=== PATIENT | male | born 1945 | race Caucasian/White ===

== ENCOUNTER 2017-06-02 14:32 | Outpatient (CLI) | payer MEDICARE, OTHER ==
[~2017-06-02] VITALS: Ht 182.9 cm; Wt 127.0 kg
[~2017-06-02 14:32] MED LIST: ACHD5005 PO; CIPR-17 PO; HYDR-91 PO; HYOS0.1216 PO; NITR100C44 PO; PHEN100T26 PO; TMSL.4C PO; methylPREDNISolone 80 MG/ML (DEPO MEDROL) VIAL ONE
[2017-06-02 14:46] VITALS: BP 155/74
[2017-06-02 15:17] VITALS: BP 155/70
--- NOTE | 2017-06-06 08:34 | OPERATIVE REPORT ---
DATE OF SERVICE: 06/02/2017 CAUDAL EPIDURAL STEROID INJECTION The patient was placed in the prone position on the examination table. The area over the sacrum from the lumbosacral junction down to and past the sacrococcygeal junction was prepped with anesthetic. Under fluoroscopy guidance, the area identified as the sacral sulcus was found and using a syringe with lidocaine, local was injected. Under fluoroscopy guidance, 25-gauge and 27-gauge 3-1/2 inch spinal needles were then directed down into the sacral sulcus. Dye was injected. We obtained a crosstable fluoroscopy image and saw the dye was an epidural flow in the sacral vault. Negative aspiration for spinal fluid or blood. At this time, we switched over and injected 80 mg of Depo-Medrol. Job ID: [id number] DocumentID: [id number] Dictated Date: 06/05/2017 20:39:09 Pbx Technician Date: 06/06/2017 01:27:34 Dictated By: DURGA KNIGHT DO
== END 2017-06-02 15:18 | disposition home or self-care (01) ==
LOC: CARD 14:32
PROVIDERS: ATTEND Pain Medicine Interventional Pain Medicine
DX: M54.16 Radiculopathy, lumbar region (principal)
CPT/HCPCS: 62323

== ENCOUNTER 2019-10-14 15:27 | Emergency (ER) | payer MEDICARE, OTHER ==
[~2019-10-14] VITALS: Ht 182.8 cm; Wt 136.7 kg
[~2019-10-14 15:27] MED LIST changes: -methylPREDNISolone 80 MG/ML (DEPO MEDROL) VIAL ONE
--- OUTSIDE RECORDS SUMMARY | 2019-10-14 15:33 | XMS REPORT | Continuity of Care Document ---
Author Organization Unknown Address Unknown Phone Unavailable Allergies Active Description Code Type Severity Reaction Onset Reported/Identified Relationship to Patient Clinical Status Yes No Known Drug Allergies [id number] Drug Allergy Unknown N/A 10/16/2013 Medications There is no data. Problems Date Dx Coded Attending Type Code Diagnosis Diagnosed By 10/16/2013 PINEDA NORMAN MD Ot 592.0 CALCULUS OF KIDNEY 11/20/2013 PINEDA NORMAN MD Ot 592.0 CALCULUS OF KIDNEY 11/20/2013 PINEDA NORMAN MD Ot 592.1 CALCULUS OF URETER 11/20/2013 PINEDA NORMAN MD Ot 596.0 BLADDER NECK OBSTRUCTION 06/02/2017 DURGA KNIGHT DO Ot M54.16 RADICULOPATHY, LUMBAR REGION 06/02/2017 PINEDA NORMAN MD Ot 592.9 URINARY CALCULUS NOS 06/02/2017 PINEDA NORMAN MD Ot 592.1 CALCULUS OF URETER 06/02/2017 PINEDA NORMAN MD Ot 592.0 CALCULUS OF KIDNEY Procedures There is no data. Results There is no data. Encounters ACCT No. Visit Date/Time Discharge Status Pt. Type Provider Facility Loc./Unit Complaint [id number] 07/13/2018 08:04:00 019 23:59:59 CLS Preadmit DURGA KNIGHT DO [facility] RAD M54.16 RADICULOPATHY [id number] 06/02/2017 14:32:00 017 15:18:00 DIS Outpatient DURGA KNIGHT DO [facility] CARD M54.16 LUMBAR RADICULOPATHY [id number] 12/04/2013 13:32:00 014 23:59:59 CLS Outpatient PINEDA NORMAN MD [facility] RAD URETER STONE [id number] 11/19/2013 16:55:00 13:30:00 DIS Outpatient PINEDA NORMAN MD [facility] BILAT URETERAL STONES [id number] 10/30/2013 15:26:00 23:59:59 CLS Outpatient PINEDA NORMAN MD [facility] RAD RT URETEAL STONE [id number] 10/16/2013 06:07:00 13:30:00 DIS Outpatient PINEDA NORMAN MD [facility] LEFT URETERAL STONE [id number] 10/15/2013 15:04:00 23:59:59 CLS Outpatient PINEDA NORMAN MD [facility] RAD STONE
--- NOTE | 2019-10-14 15:39 | ED General ---
General Stated Complaint: CHEST PAIN Source of Information: Patient, Old Records, RN Notes Reviewed Exam Limitations: No Limitations History of Present Illness Date Seen by Provider: Oct 14, 2019 Time Seen by Provider: 15:30 Initial Comments This patient is a 74-year-old male presents to the emerge department complaining of left upper chest pain that started in the morning when away and then started hurting on the right upper chest pain. Some mild dizziness patient denies any cardiac history is passed. Patient states he has had about a 5-10 pound weight gain in the past month due to the serrano virus being quarantine and just sitting around the house and eating. Patient denies pain at this time. Patient does have a history of diabetes and hypertension. Does take Lasix at home regularly for due to edema. Timing/Duration: 4-6 Hours Severity: Mild Associated Systoms: No Denies Symptoms; Chest Pain; No Cough, No Diaphoresis, No Fever/Chills, No Headaches, No Loss of Appetite, No Malaise, No Nausea/Vomiting, No Rash, No Seizure, No Shortness of Air, No Syncope, No Weakness, No Other Allergies and Home Medications Allergies Coded Allergies: No Known Drug Allergies (Unverified , 10/16/13) Patient Home Medication List Home Medication List Reviewed: Yes Review of Systems Review of Systems Constitutional: see HPI EENTM: No see HPI, No no symptoms reported, No ear discharge, No hearing loss, No ear pain, No blurred vision, No double vision, No eye pain, No tearing, No vision loss, No dental problems, No hoarseness, No mouth pain, No mouth swelling, No epistaxis, No nose congestion, No nose pain, No throat pain, No throat swelling, No other Respiratory: No no symptoms reported, No see HPI, No cough, No dyspnea on exertion, No hemoptysis, No orthopnea, No phlegm, No short of breath, No stridor, No wheezing, No other Cardiovascular: No no symptoms reported; see HPI, chest pain; No edema, No Hx of Intervention, No palpitations, No syncope, No vascular heart diseas, No other Gastrointestinal: No RUQ, No LUQ, No RLQ, No LLQ, No no symptoms reported, No see HPI, No abdominal pain, No constipation, No diarrhea, No dysphagia, No hematemesis, No heartburn, No jaundice, No loss of appetite, No melena, No nausea, No vomiting, No other Musculoskeletal: No no symptoms reported, No see HPI, No back pain, No gout, No joint pain, No joint swelling, No muscle pain, No muscle stiffness, No muscle cramps, No muscle twitching, No muscle weakness, No neck pain, No other Skin: No no symptoms reported, No see HPI, No change in color, No change in hair/nails, No dryness, No hx of skin cancer, No lesions, No lumps, No pruritus, No rash, No other Past Nppssck-Blrpms-Lcexrh Hx Immunizations Up To Date Date of Pneumonia Vaccine: Apr 03, 2012 Past Medical History Reproductive Disorders: No Sexually Transmitted Disease: No Diabetes, Non-Insulin dep Physical Exam Vital Signs Vital Signs - First Documented 10/14/19 15:29 Temp 36.9 Pulse 65 Resp 22 B/P (MAP) 198/113 (141) Pulse Ox 99 O2 Delivery Room Air Capillary Refill : Height, Weight, BMI Height: 6'0.00" Weight: 280lbs. 0.0oz. 127.558385zg; 38.0 BMI Method: General Appearance: No Apparent Distress, WD/WN HEENT: PERRL/EOMI, TMs Normal, Normal ENT Inspection, Pharynx Normal Respiratory: Chest Non Tender, Lungs Clear, Normal Breath Sounds, No Accessory Muscle Use, No Respiratory Distress Cardiovascular: Regular Rate, Rhythm, No Edema, No Gallop, No JVD, No Murmur, Normal Peripheral Pulses Gastrointestinal: Normal Bowel Sounds, No Organomegaly, No Pulsatile Mass, Non Tender, Soft Extremity: Normal Capillary Refill, Normal Inspection, Normal Range of Motion, Non Tender, No Calf Tenderness, No Pedal Edema Skin: Normal Color, Warm/Dry Progress/Results/Core Measures Suspected Sepsis SIRS Temperature: Pulse: Respiratory Rate: Laboratory Tests 10/14/19 15:44: White Blood Count 11.0 Blood Pressure / Mean: Laboratory Tests 10/14/19 15:44: Creatinine 1.20, INR Comment 1.0, Platelet Count 238, Total Bilirubin 0.5 Results/Orders Lab Results Laboratory Tests Test 10/14/19 15:44 Range/Units White Blood Count 11.0 4.3-11.0 10^3/uL Red Blood Count 4.22 L 4.35-5.85 10^6/uL Hemoglobin 12.8 L 13.3-17.7 G/DL Hematocrit 40 40-54 % Mean Corpuscular Volume 95 80-99 FL Mean Corpuscular Hemoglobin 30 25-34 PG Mean Corpuscular Hemoglobin Concent 32 32-36 G/DL Red Cell Distribution Width 15.2 H 10.0-14.5 % Platelet Count 238 130-400 10^3/uL Mean Platelet Volume 10.4 7.4-10.4 FL Neutrophils (%) (Auto) 57 42-75 % Lymphocytes (%) (Auto) 33 12-44 % Monocytes (%) (Auto) 6 0-12 % Eosinophils (%) (Auto) 3 0-10 % Basophils (%) (Auto) 1 0-10 % Neutrophils # (Auto) 6.3 1.8-7.8 X 10^3 Lymphocytes # (Auto) 3.7 1.0-4.0 X 10^3 Monocytes # (Auto) 0.7 0.0-1.0 X 10^3 Eosinophils # (Auto) 0.3 0.0-0.3 10^3/uL Basophils # (Auto) 0.1 0.0-0.1 10^3/uL Prothrombin Time 14.0 12.2-14.7 SEC INR Comment 1.0 0.8-1.4 Sodium Level 144 135-145 MMOL/L Potassium Level 4.6 3.6-5.0 MMOL/L Chloride Level 108 H 98-107 MMOL/L Carbon Dioxide Level 24 21-32 MMOL/L Anion Gap 12 5-14 MMOL/L Blood Urea Nitrogen 22 H 7-18 MG/DL Creatinine 1.20 0.60-1.30 MG/DL Estimat Glomerular Filtration Rate 59 BUN/Creatinine Ratio 18 Glucose Level 119 H 70-105 MG/DL Calcium Level 9.5 8.5-10.1 MG/DL Corrected Calcium 9.6 8.5-10.1 MG/DL Total Bilirubin 0.5 0.1-1.0 MG/DL Aspartate Amino Transf (AST/SGOT) 24 5-34 U/L Alanine Aminotransferase (ALT/SGPT) 35 0-55 U/L Alkaline Phosphatase 84 40-136 U/L Troponin I < 0.30 <0.30 NG/ML Pro-B-Type Natriuretic Peptide 2896.0 H <75.0 PG/ML Total Protein 6.3 L 6.4-8.2 GM/DL Albumin 3.9 3.2-4.5 GM/DL My Orders Orders - RD IRWIN MD Ed Iv/Invasive Line Start (10/14/19 15:32) Cbc With Automated Diff (10/14/19 15:32) Comprehensive Metabolic Panel (10/14/19 15:32) Troponin I Fs (10/14/19 15:32) Protime With Inr (10/14/19 15:32) Ekg Tracing (10/14/19 15:32) Chest 1 View Ap/Pa Only (10/14/19 15:32) Aspirin Tablet (Aspirin Tablet) (10/14/19 15:45) Probnp Fs (10/14/19 15:32) Vital Signs/I&O 10/14/19 10/14/19 15:29 15:29 Temp 36.9 Pulse 65 Resp 22 B/P (MAP) 198/113 (141) Pulse Ox 99 O2 Delivery Room Air Room Air Capillary Refill : Progress Note : Time: 16:36 Progress Note This patient presents to the emergency department with chest pain and weight gain. Patient appears to have a history of congestive heart failure. Patient is on Corag Lasix and lisinopril for hypertension. And has diabetes. I did discuss at length with patient about concerns for his weight gain fluid. Patient was offered admission to the [facility] that the patient is declines patient wishes to be discharged home. I did distress concerns that I had the pat ient states understanding and states he will follow-up as an outpatient. Patient has had no chest pain in the emergency department today and believe most of his condition is chronic and stable. I did discuss at length with patient given the following instructions. Discharged per your request. Patient is to continue all home medications including Lasix Faby lisinopril and his diabetes medications. Patient should limit salt and fluid. Follow-up with his primary care physician in 2-3 days for further evaluation. Return to the emergency department symptoms don't improve or worsen. ECG Initial ECG Impression Date: Oct 14, 2019 Initial ECG Impression Time: 15:29 Initial ECG Rate: 65 Initial ECG Rhythm: Normal Sinus Initial ECG Intervals: QRS Initial ECG Impression: Nonspecific Changes, 1st Degree AV Block Comment Sinus rhythm with occasional PVC. Borderline prolonged MA interval. Right bundle branch block. Departure Impression Primary Impression: Chest wall pain Additional Impressions: Congestive heart failure Hypertension Disposition: 01 HOME, SELF-CARE Condition: Stable Departure-Patient Inst. Decision time for Depature: 16:39 Referrals: COREY JI MD (PCP/Family) Primary Care Physician Patient Instructions: Chest Pain That Is Not Caused by the Heart (DC), Heart Healthy Diet, Heart Failure, Adult (DC) Add. Discharge Instructions: Discharged per your request. Patient is to continue all home medications including Lasix [place] lisinopril and his diabetes medications. Patient should limit salt and fluid. Follow-up with his primary care physician in 2-3 days for further evaluation. Return to the emergency department symptoms don't improve or worsen. RD IRWIN MD Oct 14, 2019 15:38
[2019-10-14 15:45] VITALS: BP 157/112
[2019-10-14] MEDS ORDERED: ASPIRIN 325 MG (5 GR) TABLET PO ONE (15:45)
[2019-10-14 16:00] VITALS: BP 190/84
[2019-10-14 16:00] LABS: BASOPHILS # (AUTO) 0.1 10^3/uL (0.0-0.1); BASOPHILS % (AUTO) 1 % (0-10); EOSINOPHILS # (AUTO) 0.3 10^3/uL (0.0-0.3); EOSINOPHILS % (AUTO) 3 % (0-10); HEMATOCRIT 40 % (40-54); HEMOGLOBIN 12.8 G/DL (13.3-17.7); LYMPHOCYTES # (AUTO) 3.7 X 10^3 (1.0-4.0); LYMPHOCYTES % (AUTO) 33 % (12-44); MEAN CORPUSCULAR HEMOGLOBIN 30 PG (25-34); MEAN CORPUSCULAR HGB CONC 32 G/DL (32-36); MEAN CORPUSCULAR VOLUME 95 FL (80-99); MEAN PLATELET VOLUME 10.4 FL (7.4-10.4); MONOCYTES # (AUTO) 0.7 X 10^3 (0.0-1.0); MONOCYTES % (AUTO) 6 % (0-12); NEUTROPHILS # (AUTO) 6.3 X 10^3 (1.8-7.8); NEUTROPHILS % (AUTO) 57 % (42-75); PLATELET COUNT 238 10^3/uL (130-400); RED CELL DISTRIBUTION WIDTH 15.2 % (10.0-14.5)
[2019-10-14 16:15] VITALS: BP 156/110
[2019-10-14] MEDS ORDERED: MELO15TA39 (16:17)
[2019-10-14] MEDS ORDERED: BACL20TA (16:17)
[2019-10-14] MEDS ORDERED: POTA15TA9 (16:17)
[2019-10-14] MEDS ORDERED: CARV12.53 (16:17)
[2019-10-14] MEDS ORDERED: LISI-552 (16:17)
[2019-10-14] MEDS ORDERED: METF-399 (16:17)
[2019-10-14] MEDS ORDERED: ATOR80TA76 (16:17)
[2019-10-14] MEDS ORDERED: CELE400C10 (16:17)
[2019-10-14] MEDS ORDERED: Lasix (16:17)
[2019-10-14] MEDS ORDERED: GABA-488 (16:17)
--- NOTE | 2019-10-14 16:21 | Diagnostic Imaging Report ---
Indication: Dyspnea and chest pain. Comparison: None. Discussion: Two views of the chest were obtained. Borderline cardiomegaly. Nonspecific infiltrates are noted within the right lung base, atelectasis versus pneumonia. No pleural fluid or pneumothorax. No osseous abnormality. Impression: Infiltrates within the right lung base could be seen with atelectasis or pneumonia. Dictated by: Dictated on workstation # [id number]
[2019-10-14 16:25] LABS: CHLORIDE 108 MMOL/L (98-107); POTASSIUM 4.6 MMOL/L (3.6-5.0); SODIUM 144 MMOL/L (135-145)
[2019-10-14 16:26] LABS: ALANINE AMINOTRANSFERASE 35 U/L (0-55); ALBUMIN 3.9 GM/DL (3.2-4.5); ALKALINE PHOSPHATASE 84 U/L (40-136); BILIRUBIN,TOTAL 0.5 MG/DL (0.1-1.0); BUN/CREATININE RATIO 18; CALCIUM 9.5 MG/DL (8.5-10.1); CARBON DIOXIDE 24 MMOL/L (21-32); GFR ESTIMATED 59; GLUCOSE 119 MG/DL (70-105); TOTAL PROTEIN 6.3 GM/DL (6.4-8.2)
[2019-10-14 16:30] VITALS: BP 175/77
[2019-10-14 16:45] VITALS: BP 171/79
[2019-10-14] MEDS ORDERED: FUROSEMIDE 40 MG/4 ML INJ (LASIX) IVP ONE (16:45)
[2019-10-14 16:52] VITALS: BP 179/84
--- NOTE | 2019-10-14 16:52 | NUR ---
Patient discharged to home after thorough review of home instructions by and RN. Pt just received Lasix 40 mg IV before the bilat IV's dc'd. Pt has refused the offer of any admission wishing to only follow up with his PCP Dr Sherman and will call tomorrow. Pt to return to ED prn any worsening CP/SOA or concerns. Pt was strongly advised to be more aware of his medical history, medication with doses, and to carry this info on a paper in his billfold as to assist with trying to evaluate required some guessing on his behalf as no PCP provider office is always available to assist in an emergency. Pt reports no he hadn't purchased Lasix in a very long time as he felt he had no edema but reported this 15# weight gain. Pt advised to monitor his weight daily and begin to track what is baseline normal for him.
== END 2019-10-14 16:52 | disposition home or self-care (01) ==
LOC: EDUNIT# 15:27 → ER FS 15:29
DX: I11.0 Hypertensive heart disease with heart failure (principal); I50.9 Heart failure, unspecified; E11.9 Type 2 diabetes mellitus without complications
CPT/HCPCS: 36415; 71045; 80053; 83880; 84484; 85025; 85610; 93005

== ENCOUNTER 2020-08-08 09:15 | Day surgery (SDC) | payer MEDICARE, OTHER ==
[~2020-08-08 09:15] MED LIST changes: +ATOR80TA76; +BACL20TA; +CARV12.53; +CELE400C10; +GABA-488; +LISI-552; +Lasix; +MELO15TA39; +METF-399; +POTA15TA9
[2020-08-08 09:20] VITALS: BP 199/96
[2020-08-08] MEDS ORDERED: CATHETER FLUSH 10 ML SYR IV PRN (09:30)
--- NOTE | 2020-08-08 10:00 | NUR ---
PATIENT IS HYPERTENSIVE AT THIS TIME 206/96 AND THIS RN ASKED PATIENT IF HE HAD TAKEN BLOOD PRESSURE MEDS. HE INFORMED THAT THE DRJulieta HAD INCREASED IT BUT HE HAD NOT PICKED IT UP YET. THIS RN EDUCATED THE NEED FOR PATIENT TO CONTACT HIS PCP AND INFORM OF THE BLOOD PRESSURES THAT HE HAD TODAY. THIS RN AND DIPTI RN DISCUSSED AND BOTH TOOK BP'S AND SHE INFORMED DR. PEDRO IS CANCELLING PROCEDURE. PATIENTS IV REMOVED WITH TIP INTACT AND DISCHARGED AT 1125.
[2020-08-08 10:09] LABS: WHITE BLOOD COUNT 11.9 10^3/uL (4.3-11.0)
[2020-08-08 10:22] LABS: INR 1.1 (0.8-1.4); PROTHROMBIN TIME PATIENT 14.6 SEC (12.2-14.7)
[2020-08-08 10:23] LABS: CREATININE SERUM 1.33 MG/DL (0.60-1.30)
--- NOTE | 2020-08-08 10:30 | NUR ---
Patient hypertensive this am. BP currently 208/107. Dr. Montgomery notified and lumbar myelogram procedure cancelled to be rescheduled when BP is controlled. Patient states he saw his PCP Dr. Sherman on Tuesday of this week (08/04/20) and his BP medications were increased, but he has yet to pick the medications up from the pharmacy. Education provided to patient and . Patient has a follow up appointment scheduled with PCP.
== END 2020-08-08 10:55 | disposition home or self-care (01) ==
LOC: RAD 09:15
PROVIDERS: ATTEND Physician Assistant
DX: M54.5 Low back pain (principal); Z53.8 Procedure and treatment not carried out for other reasons
CPT/HCPCS: 36415; 82565; 84520; 85027; 85610; 85730

== ENCOUNTER 2020-09-05 08:52 | Day surgery (SDC) | payer MEDICARE, OTHER ==
[~2020-09-05] VITALS: Ht 182.9 cm; Wt 143.2 kg
[2020-09-05] VITALS (7 sets, daily range): BP systolic 130–179; BP diastolic 73–99
[~2020-09-05 08:52] MED LIST changes: -LISI-552; +LISI20TA26
[2020-09-05] MEDS ORDERED: CATHETER FLUSH 10 ML SYR IV PRN (09:15)
[2020-09-05 09:20] LABS: HEMOGLOBIN 14.8 g/dL (13.3-17.7); MEAN PLATELET VOLUME 10.3 fL (9.0-12.2); WHITE BLOOD COUNT 10.6 10^3/uL (4.3-11.0)
[2020-09-05 09:38] LABS: PROTHROMBIN TIME PATIENT 13.5 SEC (12.2-14.7)
[2020-09-05] MEDS ORDERED: ACETAMINOPHEN 500 MG TAB (TYLENOL) PO PRN (11:15)
[2020-09-05] MEDS ORDERED: IOHEXOL 240 MGI/ML 20 ML (OMNIPAQUE) VIAL IV ONE (12:45)
--- NOTE | 2020-09-05 13:09 | Diagnostic Imaging Report ---
INDICATION: Low back pain. Patient was brought to the procedure room and placed on the table in the prone position. The skin of the low back was prepped and draped in the usual sterile fashion. A small amount of 1% lidocaine was utilized for local anesthesia. A 22-gauge spinal needle was advanced into lumbar thecal sac at the L4 level. Adequate position was confirmed by return of cerebral spinal fluid. A 12 mL solution of Omnipaque 240 was then injected under fluoroscopic observation. The needle was withdrawn and hemostasis was obtained. Spot films were obtained in multiple obliquities. A total of 54 seconds of fluoroscopic time was utilized. The images display contrast within the lumbar thecal sac. There is filling of the nerve root sleeves. There appears to be a prominent anterior extradural defect at the L3-L4 level, likely owing to disc/osteophyte complex. This will be evaluated on post myelograph CT. IMPRESSION: Lumbar myelogram, as described. Further evaluation will be performed with post myelography CT. Dictated by: Dictated on workstation # [id number]
--- NOTE | 2020-09-05 13:20 | Diagnostic Imaging Report ---
PROCEDURE: CT lumbar spine with contrast. TECHNIQUE: Multiple contiguous axial images were obtained through the lumbar spine after the intrathecal administration of contrast. Sagittal and coronal reformations were then performed. Auto Exposure Controls were utilized during the CT exam to meet ALARA standards for radiation dose reduction. INDICATION: Low back pain. Patient is status post lumbar myelogram. FINDINGS: Curvature of the lumbar spine is normal. There is minimal retrolisthesis of L1 on L2 as well as L3 on L4 and L5 on S1. Vertebral body heights are maintained. No acute compression fracture is seen. There is generalized degenerative disc disease with variable disc space narrowing and marginal spurring. There is vacuum disc phenomenon noted at L1-L2, L3-L4, and L5-S1 levels. T12-L1: Central canal appears to be widely patent. Neuroforamina are patent. L1-L2: Disc/osteophyte complex does indent the ventral thecal sac but AP dimensions of the canal remain within normal limits. There is narrowing of the lateral recesses bilaterally. There is some narrowing of the bony neuroforamina bilaterally. L2-L3: Broad-based disc/osteophyte complex flattens the ventral thecal sac. No significant central canal stenosis is seen. There is significant narrowing of the lateral recesses bilaterally. There is moderate narrowing of bilateral neuroforamina. L3-L4: Broad-based disc/osteophyte complex flattens the ventral thecal sac but central canal is widely patent. There is significant narrowing of the lateral recesses bilaterally as well as moderate bilateral neuroforaminal stenosis. L4-L5: Postop changes of laminectomy are noted. Central canal is widely patent. Broad-based disc/osteophyte complex significantly narrows lateral recesses bilaterally. There is also significant bilateral neuroforaminal stenosis. L5-S1: Postop changes from laminectomy are noted. Central canal is widely patent. There is narrowing of the lateral recesses and moderate narrowing of bilateral neuroforamina. IMPRESSION: Postop changes of L4 and L5 laminectomy. There is multilevel lumbar spondylosis with multilevel lateral recess and neuroforaminal narrowing, described level by level above. No significant central canal stenosis is detected. Dictated by: Dictated on workstation # [id number]
== END 2020-09-05 14:30 | disposition home or self-care (01) ==
LOC: RAD 08:52 → SDC 10:55 → RAD 14:30
PROVIDERS: ATTEND Physician Assistant
DX: M47.816 Spondylosis without myelopathy or radiculopathy, lumbar region (principal); M48.061 Spinal stenosis, lumbar region without neurogenic claudication; E11.9 Type 2 diabetes mellitus without complications; J44.9 Chronic obstructive pulmonary disease, unspecified; I10 Essential (primary) hypertension; E78.5 Hyperlipidemia, unspecified; Z87.442 Personal history of urinary calculi; Z79.84 Long term (current) use of oral hypoglycemic drugs; Z79.82 Long term (current) use of aspirin; Z79.899 Other long term (current) drug therapy
CPT/HCPCS: 36415; 62284; 72132; 72265; 77002; 85027; 85610; 85730

== ENCOUNTER → 2020-10-21 | Outpatient (CLI) | payer MEDICARE, OTHER | LOC: LAB FS 10:00 | PROVIDERS: ATTEND Thoracic Surgery (Cardiothoracic Vascular Surgery) | DX: Z01.812 Encounter for preprocedural laboratory examination (principal); Z20.822 Contact with and (suspected) exposure to COVID-19 | CPT/HCPCS: 87635 ==

== ENCOUNTER 2020-11-08 13:52 | Observation (INO) | payer MEDICARE, OTHER ==
[~2020-11-08] VITALS: Ht 182.8 cm; Wt 135.9 kg
[~2020-11-08 13:52] MED LIST changes: -ATOR80TA76; +ATOR80TA76 PO; -BACL20TA; +BACL20TA PO; -CELE400C10; +CELE400C10 PO; -LISI20TA26; +LISI20TA26 PO; -MELO15TA39; +MELO15TA39 PO; -METF-399; +METF-399 PO; -POTA15TA9; +POTA15TA9 PO
--- NOTE | 2020-11-08 14:15 | ED General ---
General Chief Complaint: Altered Mental Status Stated Complaint: DELUSIONS | TWITCHING Source of Information: Patient, Family Exam Limitations: No Limitations History of Present Illness Date Seen by Provider: November 08, 2020 Time Seen by Provider: 14:00 Initial Comments 75-year-old male presents by private vehicle with concern (primarily by his ) of confusion and weakness since his back surgery less than 2 weeks ago. Patient admits he has episodes where he is not sure if he can get up and other times that he has no problem getting and standing up. When asked specific questions, states "my knows that, I do not remember anything". And "I am retired, why do I need to know what day it is." Allergies and Home Medications Allergies Coded Allergies: No Known Drug Allergies (Unverified , 10/16/13) Patient Home Medication List Home Medication List Reviewed: Yes Review of Systems Review of Systems Constitutional: No fever, No malaise; weakness EENTM: no symptoms reported Respiratory: No cough, No short of breath Cardiovascular: No chest pain, No edema, No palpitations, No syncope Gastrointestinal: No abdominal pain, No diarrhea, No loss of appetite, No nausea, No vomiting Musculoskeletal: back pain (chronic); No muscle pain Skin: No change in color, No rash Psychiatric/Neurological: Denies Headache, Denies Numbness, Denies Paresthesia, Denies Tremors; Weakness Past Hneanbm-Xhcgit-Fnygiw Hx Past Med/Social Hx: Reviewed Nursing Past Med/Soc Hx Patient Social History Alcohol Use: Denies Use Number of Drinks Today: II Alcohol Beverage of Choice: Other Smoking Status: Former Smoker Type Used: Cigarettes Former Smoker, Quit: Jul 04, 1989 2nd Hand Smoke Exposure: No Recent Hopitalizations: No Immunizations Up To Date Date of Pneumonia Vaccine: Apr 03, 2012 Seasonal Allergies Seasonal Allergies: No Past Medical History Surgeries: Yes (Nerve stimulator in back, back surgery x2) Appendectomy, Gallbladder, Orthopedic, Tonsillectomy Respiratory: No Cardiac: Yes (HYPERCHOLESTEROLEMIA) High Cholesterol, Hypertension Neurological: No Reproductive Disorders: No Sexually Transmitted Disease: No Genitourinary: Yes Kidney Stones Gastrointestinal: Yes (COLON POLYPS, DIVERTICULITIS) Musculoskeletal: Yes (ARTHROPATHY, OSTEOARTHRITIS OF RIGHT KNEE) Endocrine: Yes Diabetes, Non-Insulin dep HEENT: No Cancer: No Psychosocial: No Integumentary: No Blood Disorders: No Physical Exam Vital Signs Vital Signs - First Documented 11/08/20 13:58 Temp 36.6 Pulse 66 Resp 18 B/P (MAP) 158/70 (99) Pulse Ox 98 O2 Delivery Room Air Capillary Refill : Height, Weight, BMI Height: 6'0.00" Weight: 280lbs. 0.0oz. 127.079395sn; 40.00 BMI Method: General Appearance: No Apparent Distress, WD/WN Eyes: Bilateral Eye Normal Inspection, Bilateral Eye PERRL, Bilateral Eye EOMI HEENT: PERRL/EOMI, Normal ENT Inspection Neck: Full Range of Motion, Non Tender Respiratory: Chest Non Tender, Lungs Clear, Normal Breath Sounds Cardiovascular: Regular Rate, Rhythm, No Edema, No JVD Gastrointestinal: Normal Bowel Sounds, Non Tender, Soft Back: No CVA Tenderness (L), No CVA Tenderness (R) Extremity: Normal Capillary Refill, Non Tender, No Calf Tenderness Neurologic/Psychiatric: Alert, No Motor/Sensory Deficits, Normal Mood/Affect Focused Exam Lactate Level 11/08/20 14:10: Lactic Acid Level 1.67 Lactic Acid Level Laboratory Tests Test 11/08/20 14:10 Lactic Acid Level 1.67 MMOL/L (0.50-2.00) Progress/Results/Core Measures Suspected Sepsis SIRS Temperature: Pulse: Respiratory Rate: Laboratory Tests 11/08/20 14:10: White Blood Count 11.3H Blood Pressure / Mean: 11/08/20 14:10: Lactic Acid Level 1.67 Laboratory Tests 11/08/20 14:10: Creatinine 1.91H, Platelet Count 412H, Total Bilirubin 0.3 Results/Orders Lab Results Laboratory Tests Test 11/08/20 14:10 11/08/20 14:52 Range/Units White Blood Count 11.3 H 4.3-11.0 10^3/uL Red Blood Count 3.16 L 4.35-5.85 10^6/uL Hemoglobin 9.6 L 13.3-17.7 G/DL Hematocrit 31 L 40-54 % Mean Corpuscular Volume 99 80-99 FL Mean Corpuscular Hemoglobin 30 25-34 PG Mean Corpuscular Hemoglobin Concent 31 L 32-36 G/DL Red Cell Distribution Width 16.0 H 10.0-14.5 % Platelet Count 412 H 130-400 10^3/uL Mean Platelet Volume 9.7 7.4-10.4 FL Immature Granulocyte % (Auto) 1 % Neutrophils (%) (Auto) 61 42-75 % Lymphocytes (%) (Auto) 29 12-44 % Monocytes (%) (Auto) 5 0-12 % Eosinophils (%) (Auto) 4 0-10 % Basophils (%) (Auto) 1 0-10 % Neutrophils # (Auto) 6.8 1.8-7.8 X 10^3 Lymphocytes # (Auto) 3.3 1.0-4.0 X 10^3 Monocytes # (Auto) 0.5 0.0-1.0 X 10^3 Eosinophils # (Auto) 0.5 H 0.0-0.3 10^3/uL Basophils # (Auto) 0.1 0.0-0.1 10^3/uL Immature Granulocyte # (Auto) 0.1 0.0-0.1 10^3/uL Sodium Level 139 135-145 MMOL/L Potassium Level 5.9 H 3.6-5.0 MMOL/L Chloride Level 105 98-107 MMOL/L Carbon Dioxide Level 24 21-32 MMOL/L Anion Gap 10 5-14 MMOL/L Blood Urea Nitrogen 50 H 7-18 MG/DL Creatinine 1.91 H 0.60-1.30 MG/DL Estimat Glomerular Filtration Rate 35 BUN/Creatinine Ratio 26 Glucose Level 141 H 70-105 MG/DL Lactic Acid Level 1.67 0.50-2.00 MMOL/L Calcium Level 9.7 8.5-10.1 MG/DL Corrected Calcium 9.9 8.5-10.1 MG/DL Total Bilirubin 0.3 0.1-1.0 MG/DL Aspartate Amino Transf (AST/SGOT) 12 5-34 U/L Alanine Aminotransferase (ALT/SGPT) 8 0-55 U/L Alkaline Phosphatase 125 40-136 U/L Total Protein 6.8 6.4-8.2 GM/DL Albumin 3.7 3.2-4.5 GM/DL Urine Color YELLOW Urine Clarity CLOUDY Urine pH 5.5 5-9 Urine Specific [place] >=1.030 1.016-1.022 Urine Protein 1+ H NEGATIVE Urine Glucose (UA) NEGATIVE NEGATIVE Urine Ketones TRACE H NEGATIVE Urine Nitrite NEGATIVE NEGATIVE Urine Bilirubin NEGATIVE NEGATIVE Urine Urobilinogen 1.0 < = 1.0 MG/DL Urine Leukocyte Esterase TRACE H NEGATIVE Urine RBC (Auto) 3+ H NEGATIVE Urine RBC TNTC H /HPF Urine WBC NONE /HPF Urine Crystals NONE /LPF Urine Bacteria NEGATIVE /HPF Urine Casts NONE /LPF Urine Mucus NEGATIVE /LPF Urine Culture Indicated YES My Orders Orders - NINA HAWTHORNE DO Ua Culture If Indicated (11/08/20 13:57) Ed Iv/Invasive Line Start (11/08/20 14:12) Cbc With Automated Diff (11/08/20 14:12) Comprehensive Metabolic Panel (11/08/20 14:12) Lactic Acid Analyzer (11/08/20 14:12) Ct Head Wo (11/08/20 14:18) Ns Iv 1000 Ml (Sodium Chloride 0.9%) (11/08/20 15:00) Urine Culture (11/08/20 14:52) Vital Signs/I&O 11/08/20 13:58 Temp 36.6 Pulse 66 Resp 18 B/P (MAP) 158/70 (99) Pulse Ox 98 O2 Delivery Room Air Capillary Refill : Diagnostic Imaging Diagonstic Imaging: CT Comments Date of Exam:11/08/20 CT HEAD WO EXAMINATION: CT head without contrast. TECHNIQUE: Multiple contiguous axial images were obtained through the brain without the use of intravenous contrast. All CT scans use one or more of the following dose optimizing techniques: automated exposure control, MA and/or KvP adjustment based on patient size and exam type or iterative reconstruction. HISTORY: Delirium. COMPARISON: None available. FINDINGS: No large acute territorial ischemia, mass or hemorrhage. No midline shift or mass effect. Decreased attenuation is seen in the periventricular and subcortical white matter. The ventricles and cortical sulci are prominent. The basilar cisterns are patent and unremarkable. The orbits are normal. Paranasal sinuses are normal. Mastoid air cells are clear. No soft tissue abnormality is seen. No osseus lesions or fractures are seen. IMPRESSION: 1. No large acute territorial ischemia, mass or hemorrhage. 2. Chronic microvascular disease. 3. Generalized parenchymal volume loss. Dictated by: Dictated on workstation # [id number] Dict: 11/08/20 1512 Trans: 11/08/20 1516 E [id number] Interpreted by: BABAR CHAVIS DO Electronically signed by: BABAR CHAVIS DO 11/08/20 1516 Departure Communication (Admissions) Time/Spoke to Admitting Phy: 15:[address] Hernandez re HPI, labs and CT (normal head) and Dx AMS w dehydration. Plan OBS admission and hydration overnight Impression Primary Impression: Altered mental status Qualified Codes: R41.82 - Altered mental status, unspecified Additional Impressions: Dehydration Renal failure Qualified Codes: N17.9 - Acute kidney failure, unspecified Disposition: 30 STILL A PATIENT Condition: Stable Admissions Decision to Admit Reason: Admit from ER (General) Decision to Admit/Date: November 08, 2020 Time/Decision to Admit Time: 15:00 Departure-Patient Inst. Referrals: COREY JI MD (PCP/Family) Primary Care Physician NINA HAWTHORNE DO November 08, 2020 14:15
[2020-11-08 14:28] LABS: BASOPHILS # (AUTO) 0.1 10^3/uL (0.0-0.1); BASOPHILS % (AUTO) 1 % (0-10); EOSINOPHILS # (AUTO) 0.5 10^3/uL (0.0-0.3); EOSINOPHILS % (AUTO) 4 % (0-10); HEMATOCRIT 31 % (40-54); HEMOGLOBIN 9.6 G/DL (13.3-17.7); LYMPHOCYTES # (AUTO) 3.3 X 10^3 (1.0-4.0); LYMPHOCYTES % (AUTO) 29 % (12-44); MEAN CORPUSCULAR HEMOGLOBIN 30 PG (25-34); MEAN CORPUSCULAR HGB CONC 31 G/DL (32-36); MEAN CORPUSCULAR VOLUME 99 FL (80-99); MEAN PLATELET VOLUME 9.7 FL (7.4-10.4); MONOCYTES # (AUTO) 0.5 X 10^3 (0.0-1.0); MONOCYTES % (AUTO) 5 % (0-12); NEUTROPHILS # (AUTO) 6.8 X 10^3 (1.8-7.8); NEUTROPHILS % (AUTO) 61 % (42-75); PLATELET COUNT 412 10^3/uL (130-400); WHITE BLOOD COUNT 11.3 10^3/uL (4.3-11.0)
[2020-11-08 14:41] LABS: ALBUMIN 3.7 GM/DL (3.2-4.5); BILIRUBIN,TOTAL 0.3 MG/DL (0.1-1.0); CALCIUM 9.7 MG/DL (8.5-10.1); CREATININE SERUM 1.91 MG/DL (0.60-1.30); POTASSIUM 5.9 MMOL/L (3.6-5.0); TOTAL PROTEIN 6.8 GM/DL (6.4-8.2)
[2020-11-08] MEDS ORDERED: NS IV 1000 ML 1,000 ML IV SCH ×2 (15:00→18:15)
[2020-11-08 15:02] LABS: BILIRUBIN,URINE NEGATIVE (NEGATIVE); CLARITY,URINE CLOUDY; COLOR,URINE YELLOW; GLUCOSE, URINE (UA) NEGATIVE (NEGATIVE); KETONES,URINE TRACE (NEGATIVE); LEUKOCYTE ESTERASE ,URINE TRACE (NEGATIVE); NITRITE,URINE NEGATIVE (NEGATIVE); PH,URINE 5.5 (5-9); PROTEIN,URINE 1+ (NEGATIVE); RBC,URINE TNTC /HPF
[2020-11-08 15:03] LABS: BACTERIA,URINE NEGATIVE /HPF
--- NOTE | 2020-11-08 15:15 | Diagnostic Imaging Report ---
EXAMINATION: CT head without contrast. TECHNIQUE: Multiple contiguous axial images were obtained through the brain without the use of intravenous contrast. All CT scans use one or more of the following dose optimizing techniques: automated exposure control, MA and/or KvP adjustment based on patient size and exam type or iterative reconstruction. HISTORY: Delirium. COMPARISON: None available. FINDINGS: No large acute territorial ischemia, mass or hemorrhage. No midline shift or mass effect. Decreased attenuation is seen in the periventricular and subcortical white matter. The ventricles and cortical sulci are prominent. The basilar cisterns are patent and unremarkable. The orbits are normal. Paranasal sinuses are normal. Mastoid air cells are clear. No soft tissue abnormality is seen. No osseus lesions or fractures are seen. IMPRESSION: 1. No large acute territorial ischemia, mass or hemorrhage. 2. Chronic microvascular disease. 3. Generalized parenchymal volume loss. Dictated by: Dictated on workstation # [id number]
--- NOTE | 2020-11-08 17:12 | History & Physical-Hospitalist ---
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 He had a catheter placed due to unable to void and noted creat 1.9. He has periodic spasms he reports but from a spine surgery status he feels good. He appears to be incontinent of bowel at this time but does not know he is. I had suspected dementia with delirium when he was at [facility] but the family did not appear to have any interest in pursuing a psych management direction. Also his took me outside and told me he has bladder issues but does not want Dr Olson "anywhere near him" so I thanked her for updating me on that and told her we would take good care of him. He talks constantly and appears to be manic. Source: patient, family, RN/MD, old records Exam Limitations: clinical condition Date Seen 11/08/20 Time Seen by a Provider: 18:00 Attending Physician Teresa Jean-Baptiste Maxwell MD Referring Physician Date of Admission November 08, 2020 at 17:08 Home Medications & Allergies Home Medications Reviewed patient Home Medication Reconciliation performed by pharmacy medication reconciliations biometric technician and/or nursing. Patients Allergies have been reviewed. Allergies Allergies Coded Allergies No Known Drug Allergies (Unverified10/16/13) Patient Social History Marrital Status: Employed/Student: retired Tobacco Use?: No Smoking Status: Former Smoker Alcohol Use?: No Immunizations Up To Date Date of Pneumonia Vaccine: Apr 03, 2012 Current Status Primary Language: [place] Past Medical History HTN HLP Spinal disease DM Review of Systems Constitutional: see HPI, dizziness, malaise, weakness EENTM: no symptoms reported Respiratory: no symptoms reported Cardiovascular: no symptoms reported Gastrointestinal: no symptoms reported Genitourinary: no symptoms reported Musculoskeletal: back pain Skin: no symptoms reported Psychiatric/Neurological: Weakness All Other Systems Reviewed Negative Unless Noted: Yes Physical Exam Physical Exam Vital Signs Vital Signs - First Documented 11/08/20 13:58 Temp 36.6 Pulse 66 Resp 18 B/P (MAP) 158/70 (99) Pulse Ox 98 O2 Delivery Room Air Capillary Refill : Less Than 3 Seconds Height, Weight, BMI Height: 6'0.00" Weight: 280lbs. 0.0oz. 127.263536nr; 40.00 BMI Method: General Appearance: No Apparent Distress, Chronically ill, Obese Eyes: Right Eye Normal Inspection, Right Eye PERRL HEENT: PERRL/EOMI, Normal ENT Inspection, Pharynx Normal, Moist Mucous Membranes Neck: Full Range of Motion, Normal Inspection, Non Tender Respiratory: Chest Non Tender, Lungs Clear, Normal Breath Sounds, No Accessory Muscle Use, No Respiratory Distress Cardiovascular: Regular Rate, Rhythm, No Edema, No Gallop, No JVD, No Murmur, Normal Peripheral Pulses Gastrointestinal: Normal Bowel Sounds, No Organomegaly, No Pulsatile Mass, Non Tender, Soft Back: Normal Inspection, No CVA Tenderness, No Vertebral Tenderness Extremity: Normal Capillary Refill, Normal Inspection, Normal Range of Motion, Non Tender, No Calf Tenderness, No Pedal Edema Neurologic/Psychiatric: Alert, Oriented x3, No Motor/Sensory Deficits, Normal Mood/Affect, Disoriented, Motor Weakness (generalized) Skin: Normal Color, Warm/Dry Lymphatic: No Adenopathy Results Results/Procedures Labs Laboratory Tests 11/08/20 14:10 11/08/20 21:20 11/08/20 21:45 11/09/20 06:15 Patient resulted labs reviewed. Assessment/Plan Admission Diagnosis Assessment: AMS Dehydration JM Dementia? Delirium Urinary retention requiring almendarez catheter placed in ER Fecal incontinence? Recent extensive spine surgery Hyperkalemia HTN HLP Plan: Monitor delirium IVF Catheter Incontinence care for bowel Admission Status: Observation Diagnosis/Problems Diagnosis/Problems (1) Altered mental status Status: Acute Qualifiers: Altered mental status type: unspecified Qualified Codes: R41.82 - Altered mental status, unspecified (2) Renal failure Status: Acute Qualifiers: Renal failure chronicity: acute Acute renal failure type: unspecified Qualified Codes: N17.9 - Acute kidney failure, unspecified (3) Dehydration Status: Acute TERESA JEAN-BAPTISTE DO November 08, 2020 17:12
[2020-11-08] MEDS ORDERED: LOPERAMIDE 2 MG (IMODIUM) TABLET PO PRN (18:15)
[2020-11-08] MEDS ORDERED: ONDANSETRON 4 MG/2 ML (SDV) Z0FRAN IVP PRN (18:15)
[2020-11-08] MEDS ORDERED: ZIPRASIDONE 20 MG INJ (GEODON) VIAL IM PRN (18:15)
[2020-11-08] MEDS ORDERED: CALCIUM CARBONATE 500 MG (TUMS) TAB.CHEW PO PRN (18:15)
[2020-11-08] MEDS ORDERED: LORazepam INJ 2 MG/ML (ATIVAN) VIAL IVP PRN (18:15)
[2020-11-08] MEDS ORDERED: ACETAMINOPHEN 500 MG TAB (TYLENOL) PO PRN (18:15)
[2020-11-08] MEDS ORDERED: MELATONIN 3 MG TABLET PO PRN (18:15)
[2020-11-08] MEDS ORDERED: ALPRAZolam 0.25 MG (XANAX) TAB PO PRN (18:15)
[2020-11-08] MEDS ORDERED: HALOPERIDOL 5 MG/ML (HALDOL) VIAL IM PRN (18:15)
[2020-11-08] MEDS ORDERED: WATER (STERILE) FOR INJ 10 ML BTL INJ SCH (18:15)
[2020-11-08] MEDS ORDERED: HYDROcodone/APAP 5 MG/325 MG (LORTAB) TAB PO PRN (18:15)
[2020-11-08] MEDS ORDERED: NS W/KCL 20 MEQ/L 1,000 ML IV ONE (18:17)
[2020-11-08] MEDS: NS IV 1000 ML 1,000 ML IV SCH (18:42)
[2020-11-08 19:35] VITALS: BP 148/70
[2020-11-08] MEDS: OLANZapine 2.5 MG (ZyPREXA) TAB PO SCH (20:57)
[2020-11-08] MEDS: SENNA W/DOCUSATE (SENOKOT S) TABLET PO SCH (20:58)
[2020-11-08 21:39] LABS: BASOPHILS # (AUTO) 0.1 10^3/uL (0.0-0.1); BASOPHILS % (AUTO) 1 % (0-10); EOSINOPHILS # (AUTO) 0.5 10^3/uL (0.0-0.3); EOSINOPHILS % (AUTO) 6 % (0-10); HEMATOCRIT 30 % (40-54); HEMOGLOBIN 9.3 g/dL (13.3-17.7); LYMPHOCYTES # (AUTO) 2.9 10^3/uL (1.0-4.0); LYMPHOCYTES % (AUTO) 32 % (12-44); MEAN CORPUSCULAR HEMOGLOBIN 31 pg (25-34); MEAN CORPUSCULAR HGB CONC 31 g/dL (32-36); MEAN CORPUSCULAR VOLUME 98 fL (80-99); MEAN PLATELET VOLUME 9.3 fL (9.0-12.2); MONOCYTES # (AUTO) 0.5 10^3/uL (0.0-1.0); MONOCYTES % (AUTO) 6 % (0-12); NEUTROPHILS # (AUTO) 4.9 10^3/uL (1.8-7.8); NEUTROPHILS % (AUTO) 55 % (42-75); PLATELET COUNT 383 10^3/uL (130-400); WHITE BLOOD COUNT 8.9 10^3/uL (4.3-11.0)
[2020-11-08 21:45] LABS: ALBUMIN 3.4 GM/DL (3.2-4.5)
[2020-11-08 21:46] LABS: POTASSIUM 5.1 MMOL/L (3.6-5.0)
[2020-11-08 21:48] LABS: TOTAL PROTEIN 6.2 GM/DL (6.4-8.2)
[2020-11-08 21:50] LABS: BILIRUBIN,TOTAL 0.4 MG/DL (0.1-1.0)
[2020-11-08 21:51] LABS: CREATININE SERUM 1.94 MG/DL (0.60-1.30)
[2020-11-09 00:29] VITALS: BP 158/75
[2020-11-09 03:59] VITALS: BP 136/93
[2020-11-09] MEDS: NS IV 1000 ML 1,000 ML IV SCH ×3 (04:16→15:48)
[2020-11-09 06:47] LABS: BASOPHILS # (AUTO) 0.1 10^3/uL (0.0-0.1); BASOPHILS % (AUTO) 1 % (0-10); EOSINOPHILS # (AUTO) 0.5 10^3/uL (0.0-0.3); EOSINOPHILS % (AUTO) 6 % (0-10); HEMATOCRIT 31 % (40-54); HEMOGLOBIN 9.4 g/dL (13.3-17.7); LYMPHOCYTES % (AUTO) 35 % (12-44); MEAN CORPUSCULAR HEMOGLOBIN 30 pg (25-34); MEAN CORPUSCULAR HGB CONC 31 g/dL (32-36); MEAN CORPUSCULAR VOLUME 98 fL (80-99); MEAN PLATELET VOLUME 9.2 fL (9.0-12.2); MONOCYTES # (AUTO) 0.5 10^3/uL (0.0-1.0); MONOCYTES % (AUTO) 6 % (0-12); NEUTROPHILS # (AUTO) 4.4 10^3/uL (1.8-7.8); NEUTROPHILS % (AUTO) 51 % (42-75); PLATELET COUNT 392 10^3/uL (130-400); WHITE BLOOD COUNT 8.6 10^3/uL (4.3-11.0)
[2020-11-09 06:56] LABS: ALBUMIN 3.4 GM/DL (3.2-4.5)
[2020-11-09 06:57] LABS: POTASSIUM 4.8 MMOL/L (3.6-5.0)
[2020-11-09 06:58] LABS: CALCIUM 9.1 MG/DL (8.5-10.1)
[2020-11-09 06:59] LABS: TOTAL PROTEIN 6.2 GM/DL (6.4-8.2)
[2020-11-09 07:01] LABS: BILIRUBIN,TOTAL 0.5 MG/DL (0.1-1.0)
[2020-11-09 07:03] LABS: CREATININE SERUM 1.54 MG/DL (0.60-1.30)
--- NOTE | 2020-11-09 07:05 | Progress Note - Hospitalist ---
Subjective HPI/CC On Admission Date Seen by Provider: November 09, 2020 Time Seen by Provider: 11:00 CC: JM with dehydration and confusion HPI: This is a 75yoWM clinic patient of Dr Sherman who is known to me from prior admit to 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 He had a catheter placed due to unable to void and noted creat 1.9. He has periodic spasms he reports but from a spine surgery status he feels good. He appears to be incontinent of bowel at this time but does not know he is. I had suspected dementia with delirium when he was at [facility] but the family did not appear to have any interest in pursuing a psych management direction. Also his took me outside and told me he has bladder issues but does not want Dr Olson "anywhere near him" so I thanked her for updating me on that and told her we would take good care of him. He talks constantly and appears to be manic. Subjective/Events-last exam Patient is improved Elevated BP prompted additional meds Hgb 9.4 Heparin for DVT PPx PT OT ordered Talked about IRF when I had offered that when he was at [place] when they chose [facility] Incontinence of bladder, wearing diaper Creat 1.54 Reg diet. Review of Systems General: Fatigue, Malaise Genitourinary: Incontinence, Retention Neurological: Confusion Focused Exam Lactate Level 11/08/20 14:10: Lactic Acid Level 1.67 Objective Exam Vital Signs Vital Signs Date Time Temp Pulse Resp B/P (MAP) Pulse Ox O2 Delivery O2 Flow Rate FiO2 11/09/20 16:27 36.8 46 18 120/65 (83) 97 Room Air Capillary Refill : Less Than 3 Seconds General Appearance: No Apparent Distress, WD/WN, Chronically ill Respiratory: Lungs Clear Cardiovascular: Regular Rate, Rhythm Neurologic/Psychiatric: Alert, Oriented x3, Disoriented Results/Procedures Lab Laboratory Tests 11/08/20 21:20 11/08/20 21:45 11/09/20 06:15 Patient resulted labs reviewed. Assessment/Plan Assessment and Plan Assess & Plan/Chief Complaint Assessment: AMS Dehydration JM Dementia? Delirium Urinary retention requiring almendarez catheter placed in ER Fecal incontinence? Recent extensive spine surgery Hyperkalemia HTN HLP Plan: Monitor delirium IVF Catheter Incontinence care for bowel 11/09/20: Bladder scan PVR Incontinence care Reg diet IRF Diagnosis/Problems Diagnosis/Problems (1) Altered mental status Status: Acute Qualifiers: Altered mental status type: unspecified Qualified Codes: R41.82 - Altered mental status, unspecified (2) Renal failure Status: Acute Qualifiers: Renal failure chronicity: acute Acute renal failure type: unspecified Qualified Codes: N17.9 - Acute kidney failure, unspecified (3) Dehydration Status: Acute SUMAYA JEAN-BAPTISTE DO November 09, 2020 07:05
[2020-11-09 08:00] VITALS: BP 191/80
[2020-11-09] MEDS: amLODIPine 5 MG (NORVASC) TAB PO SCH (09:39)
[2020-11-09] MEDS: SENNA W/DOCUSATE (SENOKOT S) TABLET PO SCH ×2 (09:48→20:39)
[2020-11-09] MEDS ORDERED: cloNIDine 0.1 MG (CATAPRES) TAB PO ONE (11:30)
[2020-11-09] MEDS ORDERED: cloNIDine 0.1 MG (CATAPRES) TAB PO PRN (11:30)
[2020-11-09] MEDS ORDERED: SPIR1TAB3 PO (11:54)
[2020-11-09 12:00] VITALS: BP 133/74
[2020-11-09 16:27] VITALS: BP 120/65
[2020-11-09] MEDS: OLANZapine 2.5 MG (ZyPREXA) TAB PO SCH (20:40)
[2020-11-09 20:41] VITALS: BP 121/76
[2020-11-10 00:09] VITALS: BP 166/80
[2020-11-10] MEDS: NS IV 1000 ML 1,000 ML IV SCH (02:18)
[2020-11-10 03:40] VITALS: BP 158/73
[2020-11-10 06:05] LABS: BASOPHILS # (AUTO) 0.1 10^3/uL (0.0-0.1); BASOPHILS % (AUTO) 1 % (0-10); EOSINOPHILS # (AUTO) 0.6 10^3/uL (0.0-0.3); EOSINOPHILS % (AUTO) 5 % (0-10); HEMATOCRIT 31 % (40-54); HEMOGLOBIN 9.5 g/dL (13.3-17.7); LYMPHOCYTES # (AUTO) 2.6 10^3/uL (1.0-4.0); LYMPHOCYTES % (AUTO) 22 % (12-44); MEAN CORPUSCULAR HEMOGLOBIN 30 pg (25-34); MEAN CORPUSCULAR HGB CONC 31 g/dL (32-36); MEAN CORPUSCULAR VOLUME 99 fL (80-99); MEAN PLATELET VOLUME 9.5 fL (9.0-12.2); MONOCYTES # (AUTO) 0.8 10^3/uL (0.0-1.0); MONOCYTES % (AUTO) 7 % (0-12); NEUTROPHILS # (AUTO) 7.9 10^3/uL (1.8-7.8); NEUTROPHILS % (AUTO) 66 % (42-75); PLATELET COUNT 401 10^3/uL (130-400); WHITE BLOOD COUNT 11.9 10^3/uL (4.3-11.0)
[2020-11-10 06:22] LABS: ALBUMIN 3.4 GM/DL (3.2-4.5); POTASSIUM 5.2 MMOL/L (3.6-5.0)
[2020-11-10 06:25] LABS: TOTAL PROTEIN 6.4 GM/DL (6.4-8.2)
[2020-11-10 06:27] LABS: BILIRUBIN,TOTAL 0.5 MG/DL (0.1-1.0)
[2020-11-10 06:28] LABS: CREATININE SERUM 1.38 MG/DL (0.60-1.30)
[2020-11-10 07:54] VITALS: BP 171/84
--- NOTE | 2020-11-10 09:48 | Progress Note ---
Subjective Date Seen by a Provider: November 10, 2020 Time Seen by a Provider: 09:45 Subjective/Events-last exam Patient doing much better Up in a chair Work with therapy Is motivated to get better Inpatient rehab tomorrow Creatinine 1.3 Hep-Lock IV fluid Bradycardia and hypotension will prompt Dr. Rodriguez consultation He has seen cardiology at [facility] Urinating frequently but emptying pretty well without post void residual noted on bladder scan Bowels not moving so will start meds Monitoring closely Review of Systems General: Fatigue Musculoskeletal: back pain Focused Exam Lactate Level 11/08/20 14:10: Lactic Acid Level 1.67 Objective Exam Last Set of Vital Signs Vital Signs Date Time Temp Pulse Resp B/P (MAP) Pulse Ox O2 Delivery O2 Flow Rate FiO2 11/10/20 07:54 36.5 81 18 171/84 (113) 98 Room Air Capillary Refill : Less Than 3 Seconds I&O Intake and Output 11/10/20 00:00 Intake Total 1883 ml Output Total 850 ml Balance 1033 ml Intake Oral 1883 ml Output Urine Total 850 ml # Voids 5 General: Alert, Oriented X3, Cooperative, No Acute Distress Lungs: Clear to Auscultation Heart: Regular Rate Psych/Mental Status: Mental Status NL Results Lab Laboratory Tests 11/10/20 05:27: White Blood Count 11.9H, Red Blood Count 3.14L, Hemoglobin 9.5L, Hematocrit 31L, Mean Corpuscular Volume 99, Mean Corpuscular Hemoglobin 30, Mean Corpuscular Hemoglobin Concent 31L, Red Cell Distribution Width 16.0H, Platelet Count 401H, Mean Platelet Volume 9.5, Immature Granulocyte % (Auto) 0, Neutrophils (%) (Auto) 66, Lymphocytes (%) (Auto) 22, Monocytes (%) (Auto) 7, Eosinophils (%) (Auto) 5, Basophils (%) (Auto) 1, Neutrophils # (Auto) 7.9H, Lymphocytes # (Auto) 2.6, Monocytes # (Auto) 0.8, Eosinophils # (Auto) 0.6H, Basophils # (Auto) 0.1, Immature Granulocyte # (Auto) 0.1, Sodium Level 140, Potassium Level 5.2H, Chloride Level 109H, Carbon Dioxide Level 21, Anion Gap 10, Blood Urea Nitrogen 30H, Creatinine 1.38H, Estimat Glomerular Filtration Rate 50, BUN/Creatinine Ratio 22, Glucose Level 115H, Calcium Level 9.0, Corrected Calcium 9.5, Total Bilirubin 0.5, Aspartate Amino Transf (AST/SGOT) 13, Alanine Aminotransferase (ALT/SGPT) 12, Alkaline Phosphatase 115, Total Protein 6.4, Albumin 3.4 Assessment/Plan Assessment/Plan Assess & Plan/Chief Complaint Assessment: AMS Dehydration JM Dementia? Delirium Urinary retention requiring almendarez catheter placed in ER Fecal incontinence? Recent extensive spine surgery Hyperkalemia HTN HLP Plan: Monitor delirium IVF Catheter Incontinence care for bowel 11/09/20: Bladder scan PVR Incontinence care Reg diet IRF 11/10/20: Bowel regimen Consult cardiology Change heparin to Lovenox for DVT prophylaxis Monitor postvoid residual Inpatient rehab tomorrow Diagnosis/Problems Diagnosis/Problems (1) Altered mental status Status: Acute Qualifiers: Qualified Codes: R41.82 - Altered mental status, unspecified (2) Renal failure Status: Acute Qualifiers: Qualified Codes: N17.9 - Acute kidney failure, unspecified (3) Dehydration Status: Acute SUMAYA JEAN-BAPTISTE DO November 10, 2020 09:48
[2020-11-10] MEDS: amLODIPine 5 MG (NORVASC) TAB PO SCH ×2 (09:57→10:00)
[2020-11-10] MEDS: SENNA W/DOCUSATE (SENOKOT S) TABLET PO SCH ×2 (09:57→22:49)
[2020-11-10] MEDS ORDERED: ENOXAPARIN 40 MG/0.4 ML (LOVENOX) SYR SC SCH ×2 (10:30→18:00)
--- NOTE | 2020-11-10 10:38 | Physical Therapy Evaluation ---
PT Evaluation-General Medical Diagnosis Admission Date November 08, 2020 at 17:08 Medical Diagnosis: AMS/dehydration/renal failure Onset Date: November 08, 2020 Therapy Diagnosis Therapy Diagnosis: debility/weakness Height/Weight Height (Feet): 6 Height (Inches): 0.00 Weight (Pounds): 280 Weight (Ounces): 0.0 Precautions Precautions/Isolations: Standard Precautions Referral Physician: David Reason for Referral: Evaluation/Treatment Medical History Pertinent Medical History: DM, HTN Additional Medical History recent L2-S1 fusion (~3 weeks ago) with stay x 6 days in skilled NH. Recently dismissal to home with spouse Current History ER secondary to confusion and weakness Reviewed History: Yes Social History Home: Single Level Current Living Status: Spouse Entry Into Home: Stairs Without Railing (concrete side rails (old home)) PT Steps Into Home: 4 (performs side stepping with use of concrete rails) Prior Prior Level of Function SCALE: Activities may be completed with or without assistive devices. 2-Wkrffzjzkz-dgefpra completes the activity by him/herself with no assistance from a helper. 5-Set-up or Clean-up Assistance-helper sets up or cleans up; patient completes activity. [place] assists only prior to or following the activity. 4-Supervision or Touching Assistance-helper provides verbal cues and/or touching/steadying and/or contact guard assistance as patient completes activity. Assistance may be provided throughout the activity or intermittently. 3-Partial/Moderate Assistance-helper does LESS THAN HALF the effort. [place] lifts, holds or supports trunk or limbs, but provides less than half the effort. 2-Substantial/Maximal Assistance-helper does MORE THAN HALF the effort. [place] lifts or holds trunk or limbs and provides more than half the effort. 2-Beikdywol-xarhuo does ALL the effort. Patient does none of the effort to complete the activity. Or, the assistance of 2 or more helpers is required for the patient to complete the activity. If activity was not attempted, code reason: 7-Patient Refused. 9-Not Applicable-not attempted and the patient did not perform the activity before the current illness, exacerbation or injury. 10-Not Attempted due to Environmental Limitations-(lack of equipment, weather restraints, etc.). 88-Not Attempted due to Medical Conditions or Safety Concerns. Bed Mobility: 5 Transfers (B,C,W/C): 5 Gait: 5 Stairs: 4 Indoor Mobility (Ambulation): Independent Stairs: Needed Some Help (SBA) Prior Devices Use: Manual wheelchair, Walker PT Evaluation-Current Subjective Patient agrees to PT and reports he is feeling stronger today. Denies pain. Objective Patient Orientation: Normal For Age ROM/Strength ROM Lower Extremities bilateral LE WFL Strength Lower Extremities 4-/5 grossly bilateral LE all planes Integumentary/Posture Integumentary refer to nursing notes Bladder Incontinence: Yes Posture trunk flexed posture Neuromuscular (Tone, Coordination, Reflexes) grossly intact with all (dons back brace independently in seated position) Sensory Vision: Functional Hearing: Functional Transfers Roll Left to Right (QC): 4 (SBA) Lying to Sitting/Side of Bed(Q: 4 (SBA) Sit to Stand (QC): 3 Chair/Pjo-nh-Tusus Xfer(QC): 3 Gait Does the Patient Walk?: Yes Mode of Locomotion: Walk Anticipated Mode of Locomotion: Walk Walk 10 feet (QC): 3 Walk 50 ft with 2 Turns(QC): 3 Walk 150 ft (QC): 3 Gait Assistive Device: FWW Comments/Gait Description extended UE's with FWW use/trunk flexed posture/WBOS Balance Sitting Static: Normal Sitting Dynamic: Normal Standing Static: Fair Standing Dynamic: Fair Picking up an Object (QC): 88 Assessment/Needs 75 y.o. male, will benefit from skilled PT to address functional strength and mo bility to improve current LOF to safely return to home at maximum LOF. Patient is currently at SBA to minimal assist with all mobility for safety. Rehab Potential: Fair PT Advertising Designer Goals Senior Care Goals PT Advertising Designer Goals Time Frame: November 29, 2020 Roll Left & Right (QC): 6 Sit to Lying (QC): 6 Lying-Sitting on Side/Bed(QC): 6 Sit to Stand (QC): 6 Chair/Pfo-hg-Jiwfe Xfer(QC): 6 Toilet Transfer (QC): 6 Does the Patient Walk: Yes Walk 10 feet (QC): 6 Walk 50ft with 2 Turns (QC): 6 Walk 150 ft (QC): 6 Walking 10ft on Uneven Surface: 6 1 Step (curb) (QC): 4 4 Steps (QC): 4 PT Plan Problem List Problem List: Activity Tolerance, Functional Strength, Gait, Transfer, Bed Mobility Treatment/Plan Treatment Plan: Continue Plan of Care Treatment Plan: Bed Mobility, Education, Functional Activity Sharon, Functional Strength, Gait, Safety, Therapeutic Exercise, Transfers Treatment Duration: November 29, 2020 Frequency: 11 times per week Estimated Hrs Per Day: .5 hour per day Patient and/or Family Agrees t: Yes Time/GCodes Time In: 925 Time Out: 951 Total Billed Treatment Time: 26 Total Billed Treatment 1 visit EVModC 15 min GT 11 min JANESSA HERNANDEZ PT November 10, 2020 10:38
--- NOTE | 2020-11-10 11:09 | Consultation-Cardiology ---
HPI-Cardiology Cardiology Consultation Date of Consultation 11/10/20 Date of Admission Time Seen by Provider: 09:45 Indication: HTN HPI Patient is a 75 y/o male with history of HTN, HLP, DM. Underwent recent back surgery approx [address] Suh. Admitted for AMS, dehydration and ARF, symptoms are improving. Denies any chest pain dyspnea, dizziness or lightheadedness. Reports recent cardiac workup done at [facility] prior to back surgery including stress test and echo. Started on home Coreg in addition to Norvasc and Clonidine and became bradycardic with HR in the 40's. BP medication currently being held. Home Medications & Allergies Allergies: Coded Allergies: No Known Drug Allergies (Unverified , 10/16/13) Home Medication List Reviewed: Yes GDU-Suusao-Geprbd Hx Patient Social History Marital Status: Employed/Student: retired Recreational Drug Use: No Smoking Status: Former Smoker Type Used: Cigarettes 2nd Hand Smoke Exposure: No Recent Hopitalizations: No Have you traveled recently?: No Alcohol Use?: No Immunizations Up To Date Date of Pneumonia Vaccine: Apr 03, 2012 Date of Influenza Vaccine: Jul 14, 2020 Past Medical History HTN, HLP, DM Family Medical History Family Medical Hx Noncontributory Review of Systems-General Review of Systems Constitutional: see HPI, dizziness, malaise, weakness EENTM: no symptoms reported Respiratory: see HPI; No cough, No dyspnea on exertion, No hemoptysis, No orthopnea, No phlegm, No short of breath, No stridor, No wheezing, No other Cardiovascular: see HPI; No chest pain, No edema, No Hx of Intervention, No palpitations, No syncope, No vascular heart diseas; other (Lightheadedness and n ear syncope as described above) Gastrointestinal: no symptoms reported Genitourinary: no symptoms reported Musculoskeletal: see HPI, back pain Skin: no symptoms reported, see HPI Psychiatric/Neurological: See HPI, Weakness All Other Systems Reviewed Negative Unless Noted: Yes Reviewed Test Results Reviewed Test Results Lab Laboratory Tests 11/10/20 05:27: White Blood Count 11.9H, Red Blood Count 3.14L, Hemoglobin 9.5L, Hematocrit 31L, Mean Corpuscular Volume 99, Mean Corpuscular Hemoglobin 30, Mean Corpuscular Hemoglobin Concent 31L, Red Cell Distribution Width 16.0H, Platelet Count 401H, Mean Platelet Volume 9.5, Immature Granulocyte % (Auto) 0, Neutrophils (%) (Auto) 66, Lymphocytes (%) (Auto) 22, Monocytes (%) (Auto) 7, Eosinophils (%) (Auto) 5, Basophils (%) (Auto) 1, Neutrophils # (Auto) 7.9H, Lymphocytes # (Auto) 2.6, Monocytes # (Auto) 0.8, Eosinophils # (Auto) 0.6H, Basophils # (Auto) 0.1, Immature Granulocyte # (Auto) 0.1, Sodium Level 140, Potassium Level 5.2H, Chloride Level 109H, Carbon Dioxide Level 21, Anion Gap 10, Blood Urea Nitrogen 30H, Creatinine 1.38H, Estimat Glomerular Filtration Rate 50, BUN/Creatinine Ratio 22, Glucose Level 115H, Calcium Level 9.0, Corrected Calcium 9.5, Total Bilirubin 0.5, Aspartate Amino Transf (AST/SGOT) 13, Alanine Aminotransferase (ALT/SGPT) 12, Alkaline Phosphatase 115, Total Protein 6.4, Albumin 3.4 Physical Exam Physical Exam Vital Signs Vital Signs - First Documented 11/08/20 13:58 Temp 36.6 Pulse 66 Resp 18 B/P (MAP) 158/70 (99) Pulse Ox 98 O2 Delivery Room Air Capillary Refill : Less Than 3 Seconds Height, Weight, BMI Height: 6'0.00" Weight: 280lbs. 0.0oz. 127.567781pt; 40.66 BMI Method: General Appearance: No Apparent Distress, WD/WN, Chronically ill Eyes: Right Eye Normal Inspection, Right Eye PERRL; Bilateral Eye EOMI HEENT: PERRL/EOMI, Normal ENT Inspection, Pharynx Normal, Moist Mucous Membranes Neck: Full Range of Motion, Normal Inspection, Non Tender Respiratory: Lungs Clear Cardiovascular: Regular Rate, Rhythm, Normal Peripheral Pulses Gastrointestinal: Normal Bowel Sounds, No Organomegaly, No Pulsatile Mass, Non Tender, Soft Back: Normal Inspection, No CVA Tenderness, No Vertebral Tenderness Extremity: Normal Capillary Refill, Normal Inspection, Normal Range of Motion, Non Tender, No Calf Tenderness, No Pedal Edema Neurologic/Psychiatric: Alert, Oriented x3, Disoriented Skin: Normal Color, Warm/Dry Lymphatic: No Adenopathy A/P-Cardiology Admission Diagnosis AMS ARF HTN HLP Assessment/Plan AMS secondary to ARF and dehydration, probably hypotensive episode, better at this time. Continue to monitor Sinus bradycardia, probably secondary to medication, currently Coreg and amlodipine on hold, twelve-lead EKG showed sinus bradycardia with nonspecific T wave abnormality, continue to monitor ARF, dehydration, improving, continue to monitor renal function. HTN, elevated. RAMO-I/ARB contraindicated at this time d/t ARF and hyperkalemia. Became bradycardic while on Coreg and amlodipine. Continue to monitor while holding the medication HLP- maintained on statin, continue to monitor DM- management per PCP Hyperkalemia, continue to monitor. Obesity Recent back surgery approx [address] Suh Multiple risk factors for underlying CAD, reports he underwent recent stress test and echo done at [facility] in just prior to back surgery. I will try to obtain a copy for further review. Thank you for allowing us to participate in the management of Mr. Lopez. This is Sharath Cardona PA-C, as a scribe for Dr. Rodriguez. Patient was seen and evaluated with Sharath, I have interviewed and examined the patient Reviewed the current note and agree with the scribed note, I made few modification using italic font SHARATH GARCÍA November 10, 2020 11:09 NEYMAR RODRIGUEZ MD November 10, 2020 11:49
[2020-11-10 11:47] VITALS: BP 169/77
--- NOTE | 2020-11-10 13:52 | Physical Therapy Daily Note ---
PT Daily Note-Current Subjective Patient agrees to PT. Mental Status Patient Orientation: Normal For Age Transfers SCALE: Activities may be completed with or without assistive devices. 5-Kelgxzffql-tmkafbp completes the activity by him/herself with no assistance from a helper. 5-Set-up or Clean-up Assistance-helper sets up or cleans up; patient completes activity. [place] assists only prior to or following the activity. 4-Supervision or Touching Assistance-helper provides verbal cues and/or touching/steadying and/or contact guard assistance as patient completes activity. Assistance may be provided throughout the activity or intermittently. 3-Partial/Moderate Assistance-helper does LESS THAN HALF the effort. [place] lifts, holds or supports trunk or limbs, but provides less than half the effort. 2-Substantial/Maximal Assistance-helper does MORE THAN HALF the effort. [place] lifts or holds trunk or limbs and provides more than half the effort. 6-Vurnalrww-dutgzz does ALL the effort. Patient does none of the effort to complete the activity. Or, the assistance of 2 or more helpers is required for the patient to complete the activity. If activity was not attempted, code reason: 7-Patient Refused. 9-Not Applicable-not attempted and the patient did not perform the activity befo re the current illness, exacerbation or injury. 10-Not Attempted due to Environmental Limitations-(lack of equipment, weather re straints, etc.). 88-Not Attempted due to Medical Conditions or Safety Concerns. Roll Left & Right (QC): 6 Lying to Sitting/Side of Bed(Q: 6 Sit to Stand (QC): 4 Chair/Ngg-yd-Lpcti Xfer(QC): 4 Toilet Transfer (QC): 4 Gait Training Does the Patient Walk?: Yes Distance: 300' Walk 10 feet (QC): 4 Walk 50 ft with 2 Turns(QC): 4 Walk 150 ft (QC): 4 Gait Assistive Device: FWW improved posture and gait sequence with increase distance Exercises Seated Therapy Exercises: Ankle pumps, Long arc quads, Hip flexion Seated Reps: 15 Assessment Patient tolerated treatment. Up in recliner. Patient did toilet self this p.m. Patient denies numbness and tingling bilateral LE and urine continence is imp roving per patient report. Patient and spouse want to be up independently in room to toilet due to urinary urgency episodes. PT educated patient on use of call light to have nursing staff assist, however, patient and spouse are adamant about up in room. Nursing notified of patient request with PT educating patient on need for assistance for safety concerns. PT Half-Way Goals Half-Way Goals PT Press Manager Goals Time Frame: November 29, 2020 Roll Left & Right (QC): 6 Sit to Lying (QC): 6 Lying-Sitting on Side/Bed(QC): 6 Sit to Stand (QC): 6 Chair/Pkw-vl-Sckgm Xfer(QC): 6 Toilet Transfer (QC): 6 Does the Patient Walk: Yes Walk 10 feet (QC): 6 Walk 50ft with 2 Turns (QC): 6 Walk 150 ft (QC): 6 Walking 10ft on Uneven Surface: 6 1 Step (curb) (QC): 4 4 Steps (QC): 4 PT Plan Treatment/Plan Treatment Plan: Continue Plan of Care Treatment Plan: Bed Mobility, Education, Functional Activity Sharon, Functional Strength, Gait, Safety, Therapeutic Exercise, Transfers Treatment Duration: November 29, 2020 Frequency: 11 times per week Estimated Hrs Per Day: .5 hour per day Patient and/or Family Agrees t: Yes Time/GCodes Time In: 1317 Time Out: 1342 Total Billed Treatment Time: 25 Total Billed Treatment 1 visit GT 15 min Ex 10 min JANESSA HERNANDEZ PT November 10, 2020 13:52
--- NOTE | 2020-11-10 14:48 | Occupational Therapy Eval ---
OT Evaluation-General/PLF Medical Diagnosis Admission Date November 08, 2020 at 17:08 Medical Diagnosis: AMS/dehydration/renal failure Onset Date: November 08, 2020 Therapy Diagnosis Therapy Diagnosis: decreased ADL status/weakness Height/Weight Height (Feet): 6 Height (Inches): 0.00 Weight (Pounds): 280 Weight (Ounces): 0.0 Precautions Precautions/Isolations: Standard Precautions Weight Bear Status back brace OOB Referral Physician: David Referral Reason: Evaluation/Treatment Medical History Pertinent Medical History: DM, HTN Additional Medical History HTN, HLD, spinal disease, DM Current History L2-S1 fusion ~3 weeks ago, spent 6 days at SNF. Pt discharged home Tuesday and by had declined further. Social History Home: Single Level Current Living Status: Spouse Entry Into Home: Stairs Without Railing (concrete side rails (old home)) Steps Into Home: 4 (performs side stepping with use of concrete rails) ADL-Prior Level of Function SCALE: Activities may be completed with or without assistive devices. 8-Qavmrptske-zjzifqg completes the activity by him/herself with no assistance from a helper. 5-Set-up or Clean-up Assistance-helper sets up or cleans up; patient completes activity. [place] assists only prior to or following the activity. 4-Supervision or Touching Assistance-helper provides verbal cues and/or touching/steadying and/or contact guard assistance as patient completes activity. Assistance may be provided throughout the activity or intermittently. 3-Partial/Moderate Assistance-helper does LESS THAN HALF the effort. [place] lifts, holds or supports trunk or limbs, but provides less than half the effort. 2-Substantial/Maximal Assistance-helper does MORE THAN HALF the effort. [place] lifts or holds trunk or limbs and provides more than half the effort. 2-Bcxpvtngl-shlzjq does ALL the effort. Patient does none of the effort to complete the activity. Or, the assistance of 2 or more helpers is required for the patient to complete the activity. If activity was not attempted, code reason: 7-Patient Refused. 9-Not Applicable-not attempted and the patient did not perform the activity before the current illness, exacerbation or injury. 10-Not Attempted due to Environmental Limitations-(lack of equipment, weather restraints, etc.). 88-Not Attempted due to Medical Conditions or Safety Concerns. ADL PLOF Comments Pt reports IND with ADLs at PLOF (prior to back surgery) Self Care: Independent Functional Cognition: Independent OT Current Status Subjective Pt seated up in recliner, states he is tired. Has some difficulty keeping eyes open throughout tx. Mental Status/Objective Patient Orientation: Person, Place, Situation Attachments: Other-See Comments (back brace) Current Upper Extremity ROM WFL Upper Extremity Coordination WFL Upper Extremity Sensation WFL ADL-Treatment Eating (QC): 6 (Per pt report) Oral Hygiene (QC): 5 (based on clincial judgement and pt report) Upper Body Dressing (QC): 4 (SBA, min verbal cues with back brace) Other Treatments Pt seated in recliner, present. OT educated pt on purpose and benefit of OT, he verbalized understanding. Pt provided information about PLOF and home set up, and participated in UE screen. Pt and asked questions about rehab unit, OT provided education about OT's role in rehab and answered questions to pt's satisfaction. OT and pt discussed back precautions, and various ways of completing ADLs while maintaining precautions, he verbalized understanding. Pt i ndicates he is tired, requests to transfer to bed, CGA from recliner to EOB. Pt doffed back brace, min verbal cues for sequencing in order to keep velcro from getting tangled. Pt then transferred supine with SBA. OT assisted with positioning pt to comfort. Post tx, pt laying in bed, call light in reach and all needs met. Education OT Patient Education: Correct positioning, Instructions don/doff splint/brace, Modified ADL techniques, Progress toward Goal/Update tx plan, Purpose of tx/functional activities, Rehab process, Safety issues, Use of adapted equipment Teaching Recipient: Patient Teaching Methods: Discussion Response to Teaching: Verbalize Understanding OT [facility] Goals Business Operations Director Goals Time Frame: November 21, 2020 Eating (QC): 6 Oral Hygiene (QC): 6 Toileting Hygiene (QC): 6 Shower/Bathe Self (QC): 6 Upper Body Dressing (QC): 6 Lower Body Dressing (QC): 6 On/Off Footwear (QC): 6 Additional Goals: 1-Demonstrate ADL Tasks, 2-Verbalize Understanding, 3- ImproveStrength/Sharon 1=Demonstrate adherence to instructed precautions during ADL tasks. 2=Patient will verbalize/demonstrate understanding of assistive devices/modifications for ADL. 3=Patient will improve strength/tolerance for activity to enable patient to perform ADL's. OT Education/Plan Problem List/Assessment Assessment: Decreased Activ Tolerance, Decreased UE Strength, Impaired Funct Balance, Impaired I ADL's, Impaired Self-Care Skills Discharge Recommendations Plan/Recommendations: Continue POC Treatment Plan/Plan of Care Patient would benefit from OT for education, treatment and training to promote independence in ADL's, mobility, safety and/or upper extremity function for ADL's. Plan of Care: ADL Retraining, Functional Mobility, UE Funct Exercise/Act Treatment Duration: November 21, 2020 Frequency: 5 times per week Estimated Hrs Per Day: .25 hour per day Rehab Potential: Fair Time/GCodes Start Time: 14:00 Stop Time: 14:19 Total Time Billed (hr/min): 19 Billed Treatment Time 1, DARSHAN WILLIAM OT November 10, 2020 14:48
[2020-11-10 15:30] VITALS: BP 152/91
[2020-11-10] MEDS ORDERED: GABA300C PO (15:51)
[2020-11-10] MEDS ORDERED: SPIR25TA5 PO (15:51)
[2020-11-10] MEDS ORDERED: ASPI-1238 PO (15:51)
[2020-11-10] MEDS ORDERED: AMLO-250 PO (15:51)
[2020-11-10] MEDS ORDERED: SILD100T67 PO (15:51)
[2020-11-10] MEDS ORDERED: CARV25TA PO (16:20)
[2020-11-10 19:55] VITALS: BP 133/74
[2020-11-10] MEDS: OLANZapine 2.5 MG (ZyPREXA) TAB PO SCH (22:49)
[2020-11-11 00:04] VITALS: BP 181/78
[2020-11-11 03:56] VITALS: BP 184/85
--- NOTE | 2020-11-11 05:07 | Discharge Summary ---
Diagnosis/Chief Complaint Date of Admission November 08, 2020 at 17:08 Date of Discharge Discharge Date: November 11, 2020 Discharge Diagnosis Assessment: AMS Dehydration JM Dementia? Delirium Urinary retention requiring almendarez catheter placed in ER Fecal incontinence? Recent extensive spine surgery Hyperkalemia HTN HLP Plan: Monitor delirium IVF Catheter Incontinence care for bowel 11/09/20: Bladder scan PVR Incontinence care Reg diet IRF 11/10/20: Bowel regimen Consult cardiology Change heparin to Lovenox for DVT prophylaxis Monitor postvoid residual Inpatient rehab tomorrow Discharge Summary Discharge Physical Examination Allergies: Coded Allergies: No Known Drug Allergies (Unverified , 10/16/13) Vitals & I&Os Vital Signs Date Time Temp Pulse Resp B/P (MAP) Pulse Ox O2 Delivery O2 Flow Rate FiO2 11/11/20 08:00 Room Air 11/11/20 08:00 36.1 80 20 130/67 (88) 96 General Appearance: Alert, Oriented X3, Cooperative Respiratory: Clear to Auscultation Cardiovascular: Regular Rate Psych/Mental Status: Mental Status NL Hospital Course Was the Problem List Reviewed?: Yes Hospital course: Pt had an uneventful hospital four day course when he was admitted for acute kidney injury with altered mental status and delirium, following a long slow recovery following an extensive spine surgery at [facility] requiring a [facility] skilled stay for two weeks, was discharged on Tuesday and back in the ER Tuesday for dehydration, at this current time Pt is doing much better, creatinine improve to 1.2, and cardiology is managing his BP, and the rest of his labs looks good, he will continue aggressive treatment with therapy in order to return back to independent living and be successful. Labs (last 24 hrs) Laboratory Tests 11/08/20 14:10: White Blood Count 11.3H, Red Blood Count 3.16L, Hemoglobin 9.6L, Hematocrit 31L, Mean Corpuscular Volume 99, Mean Corpuscular Hemoglobin 30, Mean Corpuscular Hemoglobin Concent 31L, Red Cell Distribution Width 16.0H, Platelet Count 412H, Mean Platelet Volume 9.7, Immature Granulocyte % (Auto) 1, Neutrophils (%) (Auto) 61, Lymphocytes (%) (Auto) 29, Monocytes (%) (Auto) 5, Eosinophils (%) (Auto) 4, Basophils (%) (Auto) 1, Neutrophils # (Auto) 6.8, Lymphocytes # (Auto) 3.3, Monocytes # (Auto) 0.5, Eosinophils # (Auto) 0.5H, Basophils # (Auto) 0.1, Immature Granulocyte # (Auto) 0.1, Sodium Level 139, Potassium Level 5.9H, Chloride Level 105, Carbon Dioxide Level 24, Anion Gap 10, Blood Urea Nitrogen 50H, Creatinine 1.91H, Estimat Glomerular Filtration Rate 35, BUN/Creatinine Ratio 26, Glucose Level 141H, Lactic Acid Level 1.67, Calcium Level 9.7, Corrected Calcium 9.9, Total Bilirubin 0.3, Aspartate Amino Transf (AST/SGOT) 12, Alanine Aminotransferase (ALT/SGPT) 8, Alkaline Phosphatase 125, Total Protein 6.8, Albumin 3.7 11/08/20 14:52: Urine Color YELLOW, Urine Clarity CLOUDY, Urine pH 5.5, Urine Specific [place] >=1.030, Urine Protein 1+H, Urine Glucose (UA) NEGATIVE, Urine Ketones TRACEH, Urine Nitrite NEGATIVE, Urine Bilirubin NEGATIVE, Urine Urobilinogen 1.0, Urine Leukocyte Esterase TRACEH, Urine RBC (Auto) 3+H, Urine RBC TNTCH, Urine WBC NONE, Urine Crystals NONE, Urine Bacteria NEGATIVE, Urine Casts NONE, Urine Mucus NEGATIVE, Urine Culture Indicated YES 11/08/20 21:20: White Blood Count 8.9, Red Blood Count 3.05L, Hemoglobin 9.3L, Hematocrit 30L, Mean Corpuscular Volume 98, Mean Corpuscular Hemoglobin 31, Mean Corpuscular Hemoglobin Concent 31L, Red Cell Distribution Width 16.1H, Platelet Count 383, Mean Platelet Volume 9.3, Immature Granulocyte % (Auto) 1, Neutrophils (%) (Auto) 55, Lymphocytes (%) (Auto) 32, Monocytes (%) (Auto) 6, Eosinophils (%) (Auto) 6, Basophils (%) (Auto) 1, Neutrophils # (Auto) 4.9, Lymphocytes # (Auto) 2.9, Monocytes # (Auto) 0.5, Eosinophils # (Auto) 0.5H, Basophils # (Auto) 0.1, Immature Granulocyte # (Auto) 0.1 11/08/20 21:45: Sodium Level 144, Potassium Level 5.1H, Chloride Level 109H, Carbon Dioxide Level 21, Anion Gap 14, Blood Urea Nitrogen 43H, Creatinine 1.94H, Estimat Glomerular Filtration Rate 34, BUN/Creatinine Ratio 22, Glucose Level 177H, Calcium Level 9.0, Corrected Calcium 9.5, Total Bilirubin 0.4, Aspartate Amino Transf (AST/SGOT) 13, Alanine Aminotransferase (ALT/SGPT) 11, Alkaline Phosphatase 99, Total Protein 6.2L, Albumin 3.4 11/09/20 06:15: White Blood Count 8.6, Red Blood Count 3.15L, Hemoglobin 9.4L, Hematocrit 31L, Mean Corpuscular Volume 98, Mean Corpuscular Hemoglobin 30, Mean Corpuscular Hemoglobin Concent 31L, Red Cell Distribution Width 16.0H, Platelet Count 392, Mean Platelet Volume 9.2, Immature Granulocyte % (Auto) 1, Neutrophils (%) (Auto) 51, Lymphocytes (%) (Auto) 35, Monocytes (%) (Auto) 6, Eosinophils (%) (Auto) 6, Basophils (%) (Auto) 1, Neutrophils # (Auto) 4.4, Lymphocytes # (Auto) 3.0, Monocytes # (Auto) 0.5, Eosinophils # (Auto) 0.5H, Basophils # (Auto) 0.1, Immature Granulocyte # (Auto) 0.1, Sodium Level 143, Potassium Level 4.8, Chloride Level 110H, Carbon Dioxide Level 21, Anion Gap 12, Blood Urea Nitrogen 36H, Creatinine 1.54H, Estimat Glomerular Filtration Rate 44, BUN/Creatinine Ratio 23, Glucose Level 105, Calcium Level 9.1, Corrected Calcium 9.6, Total Bilirubin 0.5, Aspartate Amino Transf (AST/SGOT) 14, Alanine Aminotransferase (ALT/SGPT) 11, Alkaline Phosphatase 99, Total Protein 6.2L, Albumin 3.4 11/10/20 05:27: White Blood Count 11.9H, Red Blood Count 3.14L, Hemoglobin 9.5L, Hematocrit 31L, Mean Corpuscular Volume 99, Mean Corpuscular Hemoglobin 30, Mean Corpuscular Hemoglobin Concent 31L, Red Cell Distribution Width 16.0H, Platelet Count 401H, Mean Platelet Volume 9.5, Immature Granulocyte % (Auto) 0, Neutrophils (%) (Auto) 66, Lymphocytes (%) (Auto) 22, Monocytes (%) (Auto) 7, Eosinophils (%) (Auto) 5, Basophils (%) (Auto) 1, Neutrophils # (Auto) 7.9H, Lymphocytes # (Auto) 2.6, Monocytes # (Auto) 0.8, Eosinophils # (Auto) 0.6H, Basophils # (Auto) 0.1, Immature Granulocyte # (Auto) 0.1, Sodium Level 140, Potassium Level 5.2H, Chloride Level 109H, Carbon Dioxide Level 21, Anion Gap 10, Blood Urea Nitrogen 30H, Creatinine 1.38H, Estimat Glomerular Filtration Rate 50, BUN/Creatinine Ratio 22, Glucose Level 115H, Calcium Level 9.0, Corrected Calciu m 9.5, Total Bilirubin 0.5, Aspartate Amino Transf (AST/SGOT) 13, Alanine Aminotransferase (ALT/SGPT) 12, Alkaline Phosphatase 115, Total Protein 6.4, Albumin 3.4 11/11/20 05:53: White Blood Count 13.7H, Red Blood Count 3.26L, Hemoglobin 10.0L, Hematocrit 32L , Mean Corpuscular Volume 98, Mean Corpuscular Hemoglobin 31, Mean Corpuscular Hemoglobin Concent 31L, Red Cell Distribution Width 15.9H, Platelet Count 374, Mean Platelet Volume 9.2, Immature Granulocyte % (Auto) 1, Neutrophils (%) (Auto) 71, Lymphocytes (%) (Auto) 18, Monocytes (%) (Auto) 6, Eosinophils (%) (Auto) 4, Basophils (%) (Auto) 1, Neutrophils # (Auto) 9.7H, Lymphocytes # (Auto) 2.4, Monocytes # (Auto) 0.8, Eosinophils # (Auto) 0.5H, Basophils # (Auto) 0.1, Immature Granulocyte # (Auto) 0.1, Sodium Level 141, Potassium Level 5.0, Chloride Level 107, Carbon Dioxide Level 22, Anion Gap 12, Blood Urea Nitrogen 20H, Creatinine 1.22, Estimat Glomerular Filtration Rate 58, BUN/Creatinine Ratio 16, Glucose Level 139H, Calcium Level 9.6, Corrected Calcium 10.1, Total Bilirubin 0.9, Aspartate Amino Transf (AST/SGOT) 13, Alanine Aminotransferase (ALT/SGPT) 12, Alkaline Phosphatase 120, Total Protein 6.5, Albumin 3.4 Microbiology 11/08/20 Urine Culture - Final, Complete NO GROWTH Pending Labs Microbiology Date/Time Source Procedure Growth Status 11/08/20 14:52 Urine U Cath,Nos Urine Culture - Final NO GROWTH Complete Laboratory Tests 11/08/20 14:10: White Blood Count 11.3, Red Blood Count 3.16, Hemoglobin 9.6, Hematocrit 31, Mean Corpuscular Volume 99, Mean Corpuscular Hemoglobin 30, Mean Corpuscular Hemoglobin Concent 31, Red Cell Distribution Width 16.0, Platelet Count 412, Mean Platelet Volume 9.7, Immature Granulocyte % (Auto) 1, Neutrophils (%) (Auto) 61, Lymphocytes (%) (Auto) 29, Monocytes (%) (Auto) 5, Eosinophils (%) (Auto) 4, Basophils (%) (Auto) 1, Neutrophils # (Auto) 6.8, Lymphocytes # (Auto) 3.3, Monocytes # (Auto) 0.5, Eosinophils # (Auto) 0.5, Basophils # (Auto) 0.1, Immature Granulocyte # (Auto) 0.1, Sodium Level 139, Potassium Level 5.9, Chloride Level 105, Carbon Dioxide Level 24, Anion Gap 10, Blood Urea Nitrogen 50, Creatinine 1.91, Estimat Glomerular Filtration Rate 35, BUN/Creatinine Ratio 26, Glucose Level 141, Lactic Acid Level 1.67, Calcium Level 9.7, Corrected Calcium 9.9, Total Bilirubin 0.3, Aspartate Amino Transf (AST/SGOT) 12, Alanine Aminotransferase (ALT/SGPT) 8, Alkaline Phosphatase 125, Total Protein 6.8, Albumin 3.7 11/08/20 14:52: Urine Color YELLOW, Urine Clarity CLOUDY, Urine pH 5.5, Urine Specific [place] >=1.030, Urine Protein 1+, Urine Glucose (UA) NEGATIVE, Urine Ketones TRACE, Urine Nitrite NEGATIVE, Urine Bilirubin NEGATIVE, Urine Urobilinogen 1.0, Urine Leukocyte Esterase TRACE, Urine RBC (Auto) 3+, Urine RBC TNTC, Urine WBC NONE, Urine Crystals NONE, Urine Bacteria NEGATIVE, Urine Casts NONE, Urine Mucus NEGATIVE, Urine Culture Indicated YES 11/08/20 21:20: White Blood Count 8.9, Red Blood Count 3.05, Hemoglobin 9.3, Hematocrit 30, Mean Corpuscular Volume 98, Mean Corpuscular Hemoglobin 31, Mean Corpuscular Hemoglobin Concent 31, Red Cell Distribution Width 16.1, Platelet Count 383, Mean Platelet Volume 9.3, Immature Granulocyte % (Auto) 1, Neutrophils (%) (Auto) 55, Lymphocytes (%) (Auto) 32, Monocytes (%) (Auto) 6, Eosinophils (%) (Auto) 6, Basophils (%) (Auto) 1, Neutrophils # (Auto) 4.9, Lymphocytes # (Auto) 2.9, Monocytes # (Auto) 0.5, Eosinophils # (Auto) 0.5, Basophils # (Auto) 0.1, Immature Granulocyte # (Auto) 0.1 11/08/20 21:45: Sodium Level 144, Potassium Level 5.1, Chloride Level 109, Carbon Dioxide Level 21, Anion Gap 14, Blood Urea Nitrogen 43, Creatinine 1.94, Estimat Glomerular Filtration Rate 34, BUN/Creatinine Ratio 22, Glucose Level 177, Calcium Level 9.0, Corrected Calcium 9.5, Total Bilirubin 0.4, Aspartate Amino Transf (AST/SGOT) 13, Alanine Aminotransferase (ALT/SGPT) 11, Alkaline Phosphatase 99, Total Protein 6.2, Albumin 3.4 11/09/20 06:15: White Blood Count 8.6, Red Blood Count 3.15, Hemoglobin 9.4, Hematocrit 31, Mean Corpuscular Volume 98, Mean Corpuscular Hemoglobin 30, Mean Corpuscular Hemoglobin Concent 31, Red Cell Distribution Width 16.0, Platelet Count 392, Mean Platelet Volume 9.2, Immature Granulocyte % (Auto) 1, Neutrophils (%) (Auto) 51, Lymphocytes (%) (Auto) 35, Monocytes (%) (Auto) 6, Eosinophils (%) (Auto) 6, Basophils (%) (Auto) 1, Neutrophils # (Auto) 4.4, Lymphocytes # (Auto) 3.0, Monocytes # (Auto) 0.5, Eosinophils # (Auto) 0.5, Basophils # (Auto) 0.1, Immature Granulocyte # (Auto) 0.1, Sodium Level 143, Potassium Level 4.8, Chloride Level 110, Carbon Dioxide Level 21, Anion Gap 12, Blood Urea Nitrogen 36, Creatinine 1.54, Estimat Glomerular Filtration Rate 44, BUN/Creatinine Ratio 23, Glucose Level 105, Calcium Level 9.1, Corrected Calcium 9.6, Total Bilirubin 0.5, Aspartate Amino Transf (AST/SGOT) 14, Alanine Aminotransferase (ALT/SGPT) 11, Alkaline Phosphatase 99, Total Protein 6.2, Albumin 3.4 11/10/20 05:27: White Blood Count 11.9, Red Blood Count 3.14, Hemoglobin 9.5, Hematocrit 31, Mean Corpuscular Volume 99, Mean Corpuscular Hemoglobin 30, Mean Corpuscular Hemoglobin Concent 31, Red Cell Distribution Width 16.0, Platelet Count 401, Mean Platelet Volume 9.5, Immature Granulocyte % (Auto) 0, Neutrophils (%) (Auto) 66, Lymphocytes (%) (Auto) 22, Monocytes (%) (Auto) 7, Eosinophils (%) (Auto) 5, Basophils (%) (Auto) 1, Neutrophils # (Auto) 7.9, Lymphocytes # (Auto) 2.6, Monocytes # (Auto) 0.8, Eosinophils # (Auto) 0.6, Basophils # (Auto) 0.1, Immature Granulocyte # (Auto) 0.1, Sodium Level 140, Potassium Level 5.2, Chloride Level 109, Carbon Dioxide Level 21, Anion Gap 10, Blood Urea Nitrogen 30, Creatinine 1.38, Estimat Glomerular Filtration Rate 50, BUN/Creatinine Ratio 22, Glucose Level 115, Calcium Level 9.0, Corrected Calcium 9.5, Total Bilirubin 0.5, Aspartate Amino Transf (AST/SGOT) 13, Alanine Aminotransferase (ALT/SGPT) 12, Alkaline Phosphatase 115, Total Protein 6.4, Albumin 3.4 11/11/20 05:53: White Blood Count 13.7, Red Blood Count 3.26, Hemoglobin 10.0, Hematocrit 32, Mean Corpuscular Volume 98, Mean Corpuscular Hemoglobin 31, Mean Corpuscular Hemoglobin Concent 31, Red Cell Distribution Width 15.9, Platelet Count 374, Mean Platelet Volume 9.2, Immature Granulocyte % (Auto) 1, Neutrophils (%) (Auto) 71, Lymphocytes (%) (Auto) 18, Monocytes (%) (Auto) 6, Eosinophils (%) (A uto) 4, Basophils (%) (Auto) 1, Neutrophils # (Auto) 9.7, Lymphocytes # (Auto) 2.4, Monocytes # (Auto) 0.8, Eosinophils # (Auto) 0.5, Basophils # (Auto) 0.1, Immature Granulocyte # (Auto) 0.1, Sodium Level 141, Potassium Level 5.0, Chloride Level 107, Carbon Dioxide Level 22, Anion Gap 12, Blood Urea Nitrogen 20, Creatinine 1.22, Estimat Glomerular Filtration Rate 58, BUN/Creatinine Ratio 16, Glucose Level 139, Calcium Level 9.6, Corrected Calcium 10.1, Total Bilirubin 0.9, Aspartate Amino Transf (AST/SGOT) 13, Alanine Aminotransferase (ALT/SGPT) 12, Alkaline Phosphatase 120, Total Protein 6.5, Albumin 3.4 Discharge Home Medications: Active Scripts Active Reported Meloxicam 15 Mg Tablet 15 Mg PO DAILY Spironolactone 25 Mg Tablet 25 Mg PO DAILY Metformin HCl 1,000 Mg Tablet 1,000 Mg PO BID Carvedilol 25 Mg Tablet 12 Mg PO BID TAKES OF A 25MG TAB Celecoxib 400 Mg Capsule 400 Mg PO DAILY Amlodipine Besylate 5 Mg Tablet 5 Mg PO DAILY Potassium Citrate ER (Potassium Citrate) 15 Meq Tab 15 Meq PO BID Sildenafil Citrate 100 Mg Tablet 100 Mg PO UD PRN Lisinopril 20 Mg Tablet 20 Mg PO BID Aspirin EC (Aspirin) 81 Mg Tablet.dr 81 Mg PO DAILY Neurontin (Gabapentin) 300 Mg Capsule 300 Mg PO TID Baclofen 20 Mg Tablet 20 Mg PO BID Atorvastatin Calcium 80 Mg Tablet 80 Mg PO HS Instructions to patient/family Please see electronic discharge instructions given to patient. Diagnosis/Problems Diagnosis/Problems (1) Altered mental status Status: Acute Qualifiers: Qualified Codes: R41.82 - Altered mental status, unspecified (2) Renal failure Status: Acute Qualifiers: Qualified Codes: N17.9 - Acute kidney failure, unspecified (3) Dehydration Status: Acute SUMAYA JEAN-BAPTISTE DO November 11, 2020 05:07
[2020-11-11] MEDS ORDERED: SOD POLYSTERENE 15 GM/60 ML (KAYEXALATE) UNIT DOSE PO ONE (06:00)
[2020-11-11 06:03] LABS: BASOPHILS # (AUTO) 0.1 10^3/uL (0.0-0.1); BASOPHILS % (AUTO) 1 % (0-10); EOSINOPHILS # (AUTO) 0.5 10^3/uL (0.0-0.3); EOSINOPHILS % (AUTO) 4 % (0-10); HEMATOCRIT 32 % (40-54); LYMPHOCYTES # (AUTO) 2.4 10^3/uL (1.0-4.0); LYMPHOCYTES % (AUTO) 18 % (12-44); MEAN CORPUSCULAR HEMOGLOBIN 31 pg (25-34); MEAN CORPUSCULAR HGB CONC 31 g/dL (32-36); MEAN CORPUSCULAR VOLUME 98 fL (80-99); MEAN PLATELET VOLUME 9.2 fL (9.0-12.2); MONOCYTES # (AUTO) 0.8 10^3/uL (0.0-1.0); MONOCYTES % (AUTO) 6 % (0-12); NEUTROPHILS # (AUTO) 9.7 10^3/uL (1.8-7.8); NEUTROPHILS % (AUTO) 71 % (42-75); PLATELET COUNT 374 10^3/uL (130-400); WHITE BLOOD COUNT 13.7 10^3/uL (4.3-11.0)
[2020-11-11 06:20] LABS: CALCIUM 9.6 MG/DL (8.5-10.1)
[2020-11-11 06:22] LABS: TOTAL PROTEIN 6.5 GM/DL (6.4-8.2)
[2020-11-11 06:24] LABS: BILIRUBIN,TOTAL 0.9 MG/DL (0.1-1.0)
[2020-11-11 06:25] LABS: CREATININE SERUM 1.22 MG/DL (0.60-1.30)
[2020-11-11 07:02] LABS: ALBUMIN 3.4 GM/DL (3.2-4.5)
--- NOTE | 2020-11-11 07:55 | Cardiology Progress Note ---
Subjective Date Seen by Provider: November 11, 2020 Time Seen by Provider: 07:45 Subjective/Events-last exam Pt lying in bed with family at bedside. Appears less lethargic today as HR has improved from 40s to 60s. Says he has had difficulty sleeping. No other new complaints. Denies cp/palpitations/dizziness. Review of Systems General: No Chills, No Night Sweats HEENT: No Head Aches, No Visual Changes Pulmonary: No Dyspnea, No Cough Cardiovascular: No: Chest Pain, Palpitations Gastrointestinal: No: Nausea, Vomiting Genitourinary: No Dysuria, No Frequency Musculoskeletal: No: neck pain, shoulder pain Neurological: No: Weakness, Numbness Focused Exam Lactate Level 11/08/20 14:10: Lactic Acid Level 1.67 Objective-Cardiology Exam Last Set of Vital Signs Vital Signs 11/11/20 08:00 Temp 36.1 Pulse 80 Resp 20 B/P (MAP) 130/67 (88) Pulse Ox 96 O2 Delivery Room Air Capillary Refill : Less Than 3 Seconds I&O Intake and Output 11/11/20 00:00 Intake Total 6160 ml Output Total 2615 ml Balance 3545 ml Intake Oral 2160 ml IV Total 4000 ml Output Urine Total 2615 ml # Voids 1 # Bowel Movements 1 General: Alert, Oriented X3, Cooperative, No Acute Distress HEENT: Atraumatic, PERRLA Neck: Supple Lungs: Clear to Auscultation Heart: Regular Rate, Normal S1, Normal S2 Abdomen: Normal Bowel Sounds, Soft Extremities: No Clubbing, No Cyanosis Skin: No Rashes, No Breakdown Neuro: Normal Speech, Strength at 5/5 X4 Ext Psych/Mental Status: Mental Status NL, Mood NL Results Lab Laboratory Tests 11/11/20 05:53 A/P-Cardiology Admission Diagnosis AMS ARF HTN HLP Assessment/Plan AMS secondary to ARF and dehydration, probably hypotensive episode, better at this time. Continue to monitor Sinus bradycardia, probably secondary to medication, I am restarting Coreg and adding clonidine and monitor blood pressure ARF, dehydration, improving, continue to monitor renal function. Hypertension, poor control, adding clonidine and restarting Coreg and evaluate tolerance of response HLP- maintained on statin, continue to monitor DM- management per PCP Hyperkalemia, Patient reported that he was taking potassium citrate as an outpatient, recommend stopping it and I gave him Kayexalate today and will monitor electrolytes Obesity Recent back surgery approx [address] Suh Multiple risk factors for underlying CAD, reports he underwent recent stress t est and echo done at [facility] in just prior to back surgery. I will try to obtain a copy for further review. Supervisory-Addendum Brief Verification & Attestation Participated in pt care: history, MDM, physical Personally performed: exam, history, MDM, supervision of care Care discussed with: Medical Student Procedures: n/a Results interpretation: Verified all documentation Patient was seen and evaluated Examined, feeling better today Still having hyperkalemia, will give Kayexalate Patient reported that he was taking potassium citrate as an outpatient, re commend stopping the medication I restarted Coreg slowly and will monitor blood pressure I added clonidine 0.1 mg twice daily. Continue to monitor blood pressure Continue to hold amlodipine ALICIA ARCOS MED STUDENT November 11, 2020 07:55 NEYMAR EVANS MD November 11, 2020 08:43
[2020-11-11 08:00] VITALS: BP 130/67
[2020-11-11] MEDS: SENNA W/DOCUSATE (SENOKOT S) TABLET PO SCH (08:18)
[2020-11-11] MEDS ORDERED: cloNIDine 0.1 MG (CATAPRES) TAB PO SCH (09:00)
--- NOTE | 2020-11-11 09:41 | ST Cognitive Linguistic Eval ---
Speech Evaluation-General Medical Diagnosis AMS/dehydration/renal failure Onset Date: November 08, 2020 Therapy Diagnosis Therapy Diagnosis: Cognitive communication Precautions Precautions: Fall Precautions/Isolations: Fall Prevention, Standard Precautions Referral Referring Physician: Dr. Hernandez Medical History Pertinent Medical History: DM, HTN HTN, DM Current History AMS/dehydration/renal failure Reviewed History: Yes Social History Current Living Status: Spouse Speech PLF-Current Status Prior Level of Function Prior to admission, pt's PLF was __ Subjective Pt was __ Objective Formal/Standardized Tests [facility] Mental Status Examination (UMS) Results __/30 Impression Pt is a pleasant 75 y/o male who was admitted to the ARU s/p ___. Pt agreed to ST evaluation. Speech Short Term Goals Short Term Goals Short Term Goals 1.) Patient will complete safety awareness activities related to their daily activities at 80% with minimal cues. 2.) Patient will complete memory activities related to their daily activities at 80% with minimal cues. 3.) Patient will complete recall of information activities related to their daily activities at 80% with minimal cues. Speech Pretzel Cooker Goals Pretzel Cooker Goals Patient will improve cognitive-communication abilities in order to complete daily living tasks with minimal assist. Speech-Plan Treatment Plan Rehab Potential: Fair Barriers to Learning: Mediccal status and age. Pt/Family Agrees to Plan: Yes Safety Risks/Education Teaching Recipient: Patient Teaching Methods: Discussion Response to Teaching: Verbalize Understanding Education Topics Provided: Safety awareness and compensatory cognitive communication strategies. Time Speech Therapy Time In: 13:00 Speech Therapy Time Out: 13:30 Total Billed Time: 30 Billed Treatment Time 1, DARCINDCOMDASIA Mckeon November 11, 2020 09:41
[2020-11-11] MEDS ORDERED: METF-399 PO (12:28)
[2020-11-11] MEDS ORDERED: POTA15TA9 PO (12:28)
[2020-11-11] MEDS ORDERED: AMLO-250 PO (12:28)
[2020-11-11] MEDS ORDERED: SILD100T67 PO (12:28)
[2020-11-11] MEDS ORDERED: CELE400C10 PO (12:28)
[2020-11-11] MEDS ORDERED: LISI20TA26 PO (12:28)
[2020-11-11] MEDS ORDERED: SPIR25TA5 PO (12:28)
[2020-11-11] MEDS ORDERED: CARV25TA PO (12:28)
[2020-11-11] MEDS ORDERED: MELO15TA39 PO (12:28)
== END 2020-11-11 08:00 | disposition still patient (30) ==
LOC: EDUNIT# 13:52 → ER FS 13:54 → UNDOADMOB 17:08 → 4TH 17:08 → UNDODISOB 11-11 09:35
PROVIDERS: ADMIT Internal Medicine; ATTEND Internal Medicine
DX: R41.82 Altered mental status, unspecified (principal); N17.9 Acute kidney failure, unspecified; E86.0 Dehydration; E78.5 Hyperlipidemia, unspecified; E11.9 Type 2 diabetes mellitus without complications; I11.9 Hypertensive heart disease without heart failure; I35.1 Nonrheumatic aortic (valve) insufficiency; I44.0 Atrioventricular block, first degree; I45.2 Bifascicular block; E87.5 Hyperkalemia; E78.00 Pure hypercholesterolemia, unspecified; M17.11 Unilateral primary osteoarthritis, right knee; E66.9 Obesity, unspecified; Z68.41 Body mass index [BMI] 40.0-44.9, adult; Z87.891 Personal history of nicotine dependence; Z98.890 Other specified postprocedural states; Z90.89 Acquired absence of other organs; Z87.442 Personal history of urinary calculi; Z79.899 Other long term (current) drug therapy; Z79.84 Long term (current) use of oral hypoglycemic drugs; Z79.82 Long term (current) use of aspirin; Z79.1 Long term (current) use of non-steroidal anti-inflammatories (NSAID)
CPT/HCPCS: 36415; 51702; 70450; 80053 ×5; 81000; 83605; 85025 ×4; 87088; 93306; 97110; 97116; 97162; 97166; 99284; G0378

== ENCOUNTER 2020-11-11 09:30 | Inpatient (IN) | payer MEDICARE, OTHER ==
[~2020-11-11] VITALS: Ht 182 cm; Wt 134.9 kg
[~2020-11-11 09:30] MED LIST changes: +ACETAMINOPHEN 325 MG TABLET PO PRN; +AMLO-250 PO; +ASPI-1238 PO; +BISACODYL 10 MG SUPP (DULCOLAX) PR PRN; +CALCIUM CARBONATE 500 MG (TUMS) TAB.CHEW PO PRN; +CARV25TA PO; +DOCUSATE SODIUM 100 MG (COLACE) CAP PO PRN; +FLEET ENEMA ADULT 1 EA BTL PR PRN; +GABA300C PO; +LACTULOSE SYRUP 10GM/15ML (ENULOSE) 30ML UDC PO PRN; +LOPERAMIDE 2 MG (IMODIUM) TABLET PO PRN; +ONDANSETRON 4 MG (ZOFRAN) ORAL DISSOLVE TAB PO PRN; +SILD100T67 PO; +SPIR1TAB3 PO; +SPIR25TA5 PO; +diphenhydrAMINE 25 MG TAB (BENADRYL) PO PRN; +guaiFENesin/CODEINE (ROBITUSSIN AC) 10ML UDC PO PRN
--- NOTE | 2020-11-11 10:38 | Occupational Therapy Eval ---
OT Evaluation-General/PLF Medical Diagnosis Admission Date Medical Diagnosis: s/p TLIF/PSIF Onset Date: Oct 23, 2020 Therapy Diagnosis Therapy Diagnosis: decreased ADL status, weakness Height/Weight Height (Feet): 6 Height (Inches): 0.00 Weight (Pounds): 280 Weight (Ounces): 0.0 Precautions Comments back brace when up OOB Referral Physician: David Urbano Reason: Evaluation/Treatment Medical History Pertinent Medical History: DM, HTN Additional Medical History HTN, HLD, spinal disease, DM Current History L2-S1 fusion ~3 weeks ago, spent 6 days at SNF. Pt discharged home from SNF, but declined further. Pt transferred to ARU 11/11 for continued medication management and skilled therapy. Social History Home: Single Level Current Living Status: Spouse Entry Into Home: Stairs Without Railing (concrete side rails (old home)) Steps Into Home: 4 (performs side stepping with use of concrete rails) ADL-Prior Level of Function SCALE: Activities may be completed with or without assistive devices. 5-Bhhgxxhoxk-cwkykeg completes the activity by him/herself with no assistance from a helper. 5-Set-up or Clean-up Assistance-helper sets up or cleans up; patient completes activity. [place] assists only prior to or following the activity. 4-Supervision or Touching Assistance-helper provides verbal cues and/or touching/steadying and/or contact guard assistance as patient completes activity . Assistance may be provided throughout the activity or intermittently. 3-Partial/Moderate Assistance-helper does LESS THAN HALF the effort. [place] lifts, holds or supports trunk or limbs, but provides less than half the effort. 2-Substantial/Maximal Assistance-helper does MORE THAN HALF the effort. [place] lifts or holds trunk or limbs and provides more than half the effort. 5-Rmymunkqv-fdxuig does ALL the effort. Patient does none of the effort to complete the activity. Or, the assistance of 2 or more helpers is required for the patient to complete the activity. If activity was not attempted, code reason: 7-Patient Refused. 9-Not Applicable-not attempted and the patient did not perform the activity before the current illness, exacerbation or injury. 10-Not Attempted due to Environmental Limitations-(lack of equipment, weather restraints, etc.). 88-Not Attempted due to Medical Conditions or Safety Concerns. ADL PLOF Comments Pt reports independent with ADLs and functional mobility at PLOF, using a walker. He has a tub/shower with a tub transfer bench, indicates he keeps one foot out of the tub while showering. Self Care: Independent Functional Cognition: Independent DME/Equipment: Bath Bench, Tall Toilet, Tub/Shower OT Current Status Subjective Pt agreeable to OT evaluation and then OT/PT cotreat. Pt fatigued throughout session, requiring frequent seated rest breaks. Mental Status/Objective Patient Orientation: Person, Place Attachments: Other-See Comments (back brace when OOB) Current Glasses/Contacts: Yes Hearing Aids: No Dentures/Partials: No Hand Dominance: Right Upper Extremity ROM WFL Upper Extremity Coordination WFL Upper Extremity Sensation WFL Upper Extremity Strength Not formally tested due to 5lb lifting precaution, grossly 3+/5 BUEs ADL-Treatment Eating (QC): 6 (Per pt report, able to use utensils and open containers. He reports decreased appetite ) Oral Hygiene (QC): 4 (based on clinical judgement, pt would require CGA with task.) Shower/Bathe Self (QC): 3 (Assist with BLE lower legs/feet in order to maintain back precautions. Assist with buttocks in stand. Pt washed all other parts seated on SC.) Upper Body Dressing (QC): 5 (set up with char puller shirt and back brace) Lower Body Dressing (QC): 2 (Assist with threading BLEs, pt able to perform pant hike.) On/Off Footwear (QC): 1 (assist with donning/doffing gripper socks due to back precautions) Toileting Hygiene (QC): 3 (Pt able to manage clothing, assist with hygiene.) Other Treatments OT/PT cotreat due to skill of 2 clinicians that a rehabilitation physician could not perform in order to coordinate UE/LEs with task, decrease fall risk, and due to pt's limitations in strength, activity tolerance, transfers/mobility. OT focused on UE placement, ADLs, cues for sequencing and safety, and assist with transfers, PT focused on LE placement, gross overall movements, transfers/mobility. Pt completed toileting, then performed functional transfers on uneven surface and in/out of car simulation, 1 step attempted but pt states unable to complete (Refer to PT evaluation for QC scores associated with transfers and mobility). Pt then transferred into his room and onto [facility] over toilet. Pt completed toileting, then transferred to shower, doffed clothing, and completed shower. Pt donned shirt and back brace, transferring to BS to complete LE dressing. Pt requests to lay down, as he is fatigued. Post tx, pt laying in bed, call light in reach and all needs met. With transfers, pt cued for UE placement. Required frequent rest breaks during tx. Education OT Patient Education: Correct positioning, Modified ADL techniques, Progress toward Goal/Update tx plan, Purpose of tx/functional activities, Rehab process, Safety issues, Transfer techniques Teaching Recipient: Patient Teaching Methods: Discussion Response to Teaching: Verbalize Understanding OT Short Term Goals Short Term Goals Time Frame: November 21, 2020 Shower/bathe self: 4 Lower body dressin Putting on/taking off footwear: 5 OT Product Safety Technician Goals Product Safety Technician Goals Time Frame: Dec 05, 2020 Eating (QC): 6 Oral Hygiene (QC): 6 Toileting Hygiene (QC): 6 Shower/Bathe Self (QC): 6 Upper Body Dressing (QC): 6 Lower Body Dressing (QC): 6 On/Off Footwear (QC): 6 Additional Goals: 1-Demonstrate ADL Tasks, 2-Verbalize Understanding, 3- ImproveStrength/Sharon 1=Demonstrate adherence to instructed precautions during ADL tasks. 2=Patient will verbalize/demonstrate understanding of assistive devices/modifications for ADL. 3=Patient will improve strength/tolerance for activity to enable patient to perform ADL's. OT Education/Plan Problem List/Assessment Assessment: Decreased Activ Tolerance, Decreased UE Strength, Impaired Funct Balance, Impaired I ADL's, Impaired Self-Care Skills Discharge Recommendations Plan/Recommendations: Continue POC Equpiment Recommendations-D/C: Hip Kit Treatment Plan/Plan of Care Patient would benefit from OT for education, treatment and training to promote independence in ADL's, mobility, safety and/or upper extremity function for ADL's. Plan of Care: ADL Retraining, Functional Mobility, Group Exercise/Act as Ind, UE Funct Exercise/Act Treatment Duration: Dec 05, 2020 Frequency: At least 5 of 7 days/Wk (IRF) Estimated Hrs Per Day: 1.5 hours per day Agreement: Yes Rehab Potential: Fair Time/GCodes Start Time: 09:40 Stop Time: 10:40 Total Time Billed (hr/min): 60 Billed Treatment Time 5438-8849 OT evaluation x10', 9971-5581 OT/PT cotreat x50' 1, EVM (10'), FA (15'), ADL 2 (35') DARSHAN ECHOLS OT November 11, 2020 10:38
--- NOTE | 2020-11-11 11:14 | Physical Therapy Evaluation ---
PT Evaluation-General Medical Diagnosis Admission Date November 11, 2020 at 09:30 Medical Diagnosis: s/p TLIF/PSIF Onset Date: Oct 23, 2020 Therapy Diagnosis Therapy Diagnosis: generalized weakness/debility Height/Weight Height (Feet): 6 Height (Inches): 0.00 Weight (Pounds): 280 Weight (Ounces): 0.0 Precautions Precautions/Isolations: Standard Precautions Referral Physician: David Reason for Referral: Evaluation/Treatment Medical History Pertinent Medical History: DM, HTN Current History L2-S1 fusion ~3 weeks ago, spent 6 days at SNF. Pt discharged home from SNF, but declined further. Pt transferred to ARU 11/11 for continued medication management and skilled therapy. Reviewed History: Yes Social History Home: Single Level Current Living Status: Spouse Entry Into Home: Stairs Without Railing (concrete side rails (old home)) PT Steps Into Home: 4 (performs side stepping with use of concrete rails) Prior Prior Level of Function SCALE: Activities may be completed with or without assistive devices. 0-Cmpkazjdci-pktkcbn completes the activity by him/herself with no assistance from a helper. 5-Set-up or Clean-up Assistance-helper sets up or cleans up; patient completes activity. [place] assists only prior to or following the activity. 4-Supervision or Touching Assistance-helper provides verbal cues and/or touching/steadying and/or contact guard assistance as patient completes activity. Assistance may be provided throughout the activity or intermittently. 3-Partial/Moderate Assistance-helper does LESS THAN HALF the effort. [place] lifts, holds or supports trunk or limbs, but provides less than half the effort. 2-Substantial/Maximal Assistance-helper does MORE THAN HALF the effort. [place] lifts or holds trunk or limbs and provides more than half the effort. 7-Dtfwcztzi-zvopdi does ALL the effort. Patient does none of the effort to complete the activity. Or, the assistance of 2 or more helpers is required for the patient to complete the activity. If activity was not attempted, code reason: 7-Patient Refused. 9-Not Applicable-not attempted and the patient did not perform the activity before the current illness, exacerbation or injury. 10-Not Attempted due to Environmental Limitations-(lack of equipment, weather restraints, etc.). 88-Not Attempted due to Medical Conditions or Safety Concerns. Bed Mobility: 6 Transfers (B,C,W/C): 6 Gait: 6 Stairs: 4 Wheelchair Mobility: 5 Indoor Mobility (Ambulation): Independent Stairs: Needed Some Help Prior Devices Use: Manual wheelchair, Walker PT Evaluation-Current Subjective Patient reports he is very tired and "not feeling it" today. Pt agreeable to OT evaluation and then OT/PT cotreat. Pt fatigued throughout session, requiring frequent seated rest breaks. Pain Numeric Pain Scale: 0-No Pain Location: No Pain Reported Objective Patient Orientation: Normal For Age ROM/Strength ROM Lower Extremities bilateral LE WFL Strength Lower Extremities 3+/5 grossly bilateral LE all planes Integumentary/Posture Integumentary refer to nursing notes Bowel Incontinence: No Bladder Incontinence: Yes Posture trunk flexed in stand Neuromuscular (Tone, Coordination, Reflexes) grossly intact Sensory Vision: Functional Hearing: Functional Hand Dominance: Right Sensation Right Lower Extremit: Intact Sensation Left Lower Extremity: Intact Transfers Roll Left & Right (QC): 4 (SBA) Sit to Lying (QC): 4 (SBA) Lying to Sitting/Side of Bed(Q: 4 (SBA) Sit to Stand (QC): 3 Chair/Qbx-go-Ectjx Xfer(QC): 3 Toilet Transfer (QC): 3 Car Transfer (QC): 4 (SBA) Gait Does the Patient Walk?: Yes Mode of Locomotion: Both Anticipated Mode of Locomotion: Both Walk 10 feet (QC): 3 Walk 50 ft with 2 Turns(QC): 3 Walk 150 ft (QC): 3 Walking 10ft/uneven surface-QC: 3 Distance: 150' x 4 Gait Assistive Device: FWW Comments/Gait Description trunk flexed posture with short gait sequence Wheelchair Training Does the Pt Use a Wheelchair?: Yes Distance: 10' Wheel 50 ft with 2 turns (QC): 7 Wheel 150 ft (QC): 7 Type of Wheelchair: Manual Stairs 1 Step (curb) (QC): 7 (unable to simulate home with patient leaning on concreat rail and side stepping up and down step/patient refuses to attempt steps) 4 Steps (QC): 7 (unable to simulate home with patient leaning on concreat rail and side stepping up and down step/patient refuses to attempt steps) 12 Steps (QC): 9 Balance Sitting Static: Normal Sitting Dynamic: Normal Standing Static: Fair Standing Dynamic: Fair Picking up an Object (QC): 4 (AD) Treatment OT/PT cotreat due to skill of 2 clinicians that a cardiac rehabilitation program director could not perform in order to coordinate UE/LEs with task, decrease fall risk, and due to pt's rojo itations in strength, activity tolerance, transfers/mobility. OT focused on UE placement, ADLs, cues for sequencing and safety, and assist with transfers, PT focused on LE placement, gross overall movements, transfers/mobility. Pt completed toileting, then performed functional transfers on uneven surface and in/out of car simulation, 1 step attempted but pt states unable to complete Pt then transferred into his room and onto BS over toilet. Pt completed toileting, then transferred to shower, doffed clothing, and completed shower. Pt donned shirt and back brace, transferring to BSC to complete LE dressing. Pt requests to lay down, as he is fatigued. Post tx, pt laying in bed, call light in reach and all needs met. With transfers, pt cued for UE placement. Required frequent rest breaks during tx. During shower/ADL activity, PT address sit to stand transfers and standing balance as OT address ADL's. Assessment/Needs 75 y.o. male, will benefit from skilled PT to address functional strength and mobility to improve current LOF to safely return to home with spouse at maximum LOF. Rehab Potential: Fair PT Mcfp Goals [place] Worker Goals PT Mcfp Goals Time Frame: Dec 06, 2020 Roll Left & Right (QC): 6 Sit to Lying (QC): 6 Lying-Sitting on Side/Bed(QC): 6 Sit to Stand (QC): 6 Chair/Mmb-ho-Dklgf Xfer(QC): 6 Toilet Transfer (QC): 6 Car Transfer (QC): 6 Does the Patient Walk: Yes Walk 10 feet (QC): 6 Walk 50ft with 2 Turns (QC): 6 Walk 150 ft (QC): 6 Walking 10ft on Uneven Surface: 6 1 Step (curb) (QC): 3 4 Steps (QC): 9 (inability to simulate home environment and patient not feeling safe to perform) 12 Steps (QC): 9 Picking up an Object (QC): 6 Does the Pt use WC or Scooter?: Yes Wheel 50 feet with 2 turns (QC: 4 Type: Manual Wheel 150 feet: 4 Type: Manual PT Plan Problem List Problem List: Activity Tolerance, Functional Strength, Safety, Balance, Gait, Transfer, Bed Mobility Treatment/Plan Treatment Plan: Continue Plan of Care Treatment Plan: Bed Mobility, Education, Functional Activity Sharon, Functional Strength, Gait, Safety, Therapeutic Exercise, Transfers Treatment Duration: Dec 06, 2020 Frequency: At least 5 of 7 days/Wk (IRF) Estimated Hrs Per Day: 1.5 hours per day Patient and/or Family Agrees t: Yes Discharge Recommendations Therapy Discharge Recommendati: Home & Family, Post Acute PT Time/GCodes Time In: 930 Time Out: 1040 Total Billed Treatment Time: 60 (OT eval 940-950) Total Billed Treatment 1 visit EVM 10 min (930-940) (OT eval 940-950) FA x 3 50 min (cotreat with OT) JANESSA HERNANDEZ PT November 11, 2020 11:13
[2020-11-11] MEDS ORDERED: CARV25TA PO (12:28)
[2020-11-11] MEDS ORDERED: SILD100T67 PO (12:28)
[2020-11-11] MEDS ORDERED: SPIR25TA5 PO (12:28)
[2020-11-11] MEDS ORDERED: METF-399 PO (12:28)
[2020-11-11] MEDS ORDERED: AMLO-250 PO (12:28)
[2020-11-11] MEDS ORDERED: POTA15TA9 PO (12:28)
[2020-11-11] MEDS ORDERED: MELO15TA39 PO (12:28)
[2020-11-11] MEDS ORDERED: CELE400C10 PO (12:28)
[2020-11-11] MEDS ORDERED: LISI20TA26 PO (12:28)
[2020-11-11] MEDS: DOCUSATE SODIUM 100 MG (COLACE) CAP PO SCH ×2 (12:52→21:00)
[2020-11-11] MEDS: SENNA W/DOCUSATE (SENOKOT S) TABLET PO SCH ×2 (12:53→21:00)
[2020-11-11] MEDS: polyethylene glycoL POWDER 17 GM (MIRALAX) PACK PO SCH ×2 (12:53→21:00)
--- NOTE | 2020-11-11 13:03 | ST Cognitive Linguistic Eval ---
Speech Evaluation-General Medical Diagnosis TLIF/PSIF Onset Date: Oct 23, 2020 Therapy Diagnosis Therapy Diagnosis: Cognitive comunication Precautions Precautions: Fall Precautions/Isolations: Fall Prevention, Standard Precautions Referral Referring Physician: Dr. Hernandez Medical History Pertinent Medical History: DM, HTN DM, HTN Current History TLIF/PSIF Reviewed History: Yes Social History Current Living Status: Spouse Speech PLF-Current Status Prior Level of Function Prior to admission to hospital, pt's PLF was complete independence in his ADLs. Subjective Pt was alert and pleasant. Pt agreed to ST evaluation. Pt was talkative and inquisitive. Language Eval: Auditory Comprehends Simple Yes/No Ques: Functional Indent/Objects Multiple Price: Functional Ident/Pics in Multiple Price: Functional Follows 1-Step Commands: Functional Follows Complex Directions: Functional Follows General Conversations: Functional Language Eval: Verbal Language Completes Spontaneous Greeting: Functional Produces Auto, Serial Info: Functional Imitates Simple Words/Phrases: Functional Word Finding: Functional Requests Basic Needs: Functional States Basic Personal Info: Functional Expresses Complex Ideas: Functional Language Evaluation: Reading Comprehends Single Nouns: Functional Follows Simple Written Direct: Functional Comprehends Multiple Sentences: Functional Objective Cognitive Domain Attention: WNL Memory: WNL Problem Solving: Functional Executive Functions: WNL Visuospatial Skills: WNL Composite Severity Rating: WNL Clock Drawing Severity Rating: WNL Objective Formal/Standardized Tests [facility] Mental Status Examination ([facility]) Results 29/30 Oral Motor/Speech Production Within normal limits. Impression Pt was a pleasant 75 y/o male admitted to the SDU s/p back surgery. Pt agreed to ST evaluation. Pt scored 29/30 on the SLUMS, indicating no need for further ST services. Speech Patient Assess Expression of Ideas/Wants: Expression (4) Understanding Verbal Content: Understands (4) Brief Interview-Mental Status: Yes Repetition of Three Words: Three (3) Temporal Orientation: Year: Correct (3) Temporal Orientation: Month: Accurate within 5 days(2) Temporal Orientation: Day: Correct (1) Recall : Wear to say "Sock": Yes, no cue required (2) Recall : Color: Yes, no cue required (2) Recall : Bed: Yes, no cue required (2) Memory/Recall Ability: Current season, That he or she is in a hsp/hsp unit Speech-Plan Patient/Family Goals Patient/Family Goals: Pt plans to return home with his upon D/C from ARU. Treatment Plan Speech Therapy Treatment Plan: Discontinue ST Treatment Duration: November 11, 2020 Frequency: 1 time per week Estimated Hrs Per Day: .5 hour per day Rehab Potential: Fair Barriers to Learning: Medical status and age. Pt/Family Agrees to Plan: Yes Safety Risks/Education Teaching Recipient: Patient, Significant Other Teaching Methods: Discussion Response to Teaching: Verbalize Understanding Education Topics Provided: Safety awareness and compensatory cognitive strategies Time Speech Therapy Time In: 14:00 Speech Therapy Time Out: 14:30 Total Billed Time: 30 Billed Treatment Time 1, SPSNDCOMP DASIA Montoya November 11, 2020 13:03
--- NOTE | 2020-11-11 13:55 | Physical Therapy Daily Note ---
PT Daily Note-Current Subjective Patient continues to c/o fatigue. Noted better spirits this p.m. Family present. Mental Status Patient Orientation: Normal For Age Transfers SCALE: Activities may be completed with or without assistive devices. 4-Garxmskrzm-yxnyfoc completes the activity by him/herself with no assistance from a helper. 5-Set-up or Clean-up Assistance-helper sets up or cleans up; patient completes activity. [place] assists only prior to or following the activity. 4-Supervision or Touching Assistance-helper provides verbal cues and/or touching/steadying and/or contact guard assistance as patient completes activity. Assistance may be provided throughout the activity or intermittently. 3-Partial/Moderate Assistance-helper does LESS THAN HALF the effort. [place] lifts, holds or supports trunk or limbs, but provides less than half the effort. 2-Substantial/Maximal Assistance-helper does MORE THAN HALF the effort. [place] lifts or holds trunk or limbs and provides more than half the effort. 1-Lycalibrv-hfhulq does ALL the effort. Patient does none of the effort to complete the activity. Or, the assistance of 2 or more helpers is required for the patient to complete the activity. If activity was not attempted, code reason: 7-Patient Refused. 9-Not Applicable-not attempted and the patient did not perform the activity before the current illness, exacerbation or injury. 10-Not Attempted due to Environmental Limitations-(lack of equipment, weather restraints, etc.). 88-Not Attempted due to Medical Conditions or Safety Concerns. Sit to Lying (QC): 4 Lying to Sitting/Side of Bed(Q: 4 Exercises Supine Ex: Ankle pumps, Quad Set, Heel Slides, Straight leg raise Supine Reps: 12 Seated Therapy Exercises: Long arc quads Seated Reps: 12 Assessment Patient tolerated treatment well. RN present with PT instruction to allow patient to ambulate to restroom with FWW and to not place back brace due to patient urinary urgency episodes and patient voiced frustration with incontinence due to time taken to don brace and gait belt. Family, patient and RN agree. Patient will have back brace on for all therapies and with ambulation or up to recliner. PT Mcfp Goals Mcfp Goals PT [place] Helper Goals Time Frame: Dec 06, 2020 Roll Left & Right (QC): 6 Sit to Lying (QC): 6 Lying-Sitting on Side/Bed(QC): 6 Sit to Stand (QC): 6 Chair/Pwy-ei-Tvfek Xfer(QC): 6 Toilet Transfer (QC): 6 Car Transfer (QC): 6 Does the Patient Walk: Yes Walk 10 feet (QC): 6 Walk 50ft with 2 Turns (QC): 6 Walk 150 ft (QC): 6 Walking 10ft on Uneven Surface: 6 1 Step (curb) (QC): 3 4 Steps (QC): 9 (inability to simulate home environment and patient not feeling safe to perform) 12 Steps (QC): 9 Picking up an Object (QC): 6 Does the Pt use WC or Scooter?: Yes Wheel 50 feet with 2 turns (QC: 4 Type: Manual Wheel 150 feet: 4 Type: Manual PT Plan Treatment/Plan Treatment Plan: Continue Plan of Care Treatment Plan: Bed Mobility, Education, Functional Activity Sharon, Functional Strength, Gait, Safety, Therapeutic Exercise, Transfers Treatment Duration: Dec 06, 2020 Frequency: At least 5 of 7 days/Wk (IRF) Estimated Hrs Per Day: 1.5 hours per day Patient and/or Family Agrees t: Yes Safety Risks/Education Patient Education: Safety Issues Teaching Recipient: Patient, Family Teaching Methods: Discussion Response to Teaching: Verbalize Understanding Discharge Recommendations Therapy Discharge Recommendati: Home & Family, Post Acute PT Time/GCodes Time In: 1310 Time Out: 1325 Total Billed Treatment Time: 15 Total Billed Treatment 1 visit EX 15 min JANESSA HERNANDEZ PT November 11, 2020 13:55
--- NOTE | 2020-11-11 14:01 | Occupational Ther Daily Note ---
OT Current Status-Daily Note Subjective Pt alert, lying in bed. Took over care from PT. Pt agrees to therapy. No c/o pain at this time. Mental Status/Objective Patient Orientation: Person, Place, Time, Situation Attachments: IV, Other-See Comments (back brace) ADL-Treatment Pt educated on lower body dressing equipment. Pt demonstrated ability to use sock aide and dressing stick to don/doff socks then was able to bring each foot up to EOB and don/doff socks without AE. Pt then requested to use toilet. SBA using FWW to transfer onto toilet with BSC to elevate seat. Supervision to manipulate clothing and complete hygiene using FWW. Then ambulated using FWW to sink to wash hands by self. Supine <--> sit EOB independent using bed rails and HOB slightly elevated. After therapy, pt sitting EOB with call light/phone in reach. All needs met in room. Therapy Code Descriptions/Definitions Functional [place] Measure: 0=Not Assessed/NA 4=Minimal Assistance 1=Total Assistance 5=Supervision or Setup 2=Maximal Assistance 6=Modified [place] 3=Moderate Assistance 7=Complete IndependenceSCALE: Activities may be completed with or without assistive devices. 6-Cpgqicqgqq-wzwsotr completes the activity by him/herself with no assistance from a helper. 5-Set-up or Clean-up Assistance-helper sets up or cleans up; patient completes activity. [place] assists only prior to or following the activity. 4-Supervision or Touching Assistance-helper provides verbal cues and/or touching/steadying and/or contact guard assistance as patient completes activity. Assistance may be provided throughout the activity or intermittently. 3-Partial/Moderate Assistance-helper does LESS THAN HALF the effort. [place] lifts, holds or supports trunk or limbs, but provides less than half the effort. 2-Substantial/Maximal Assistance-helper does MORE THAN HALF the effort. [place] lifts or holds trunk or limbs and provides more than half the effort. 6-[place]kyxspvo-tgg[place] does ALL the effort. Patient does none of the effort to complete the activity. Or, the assistance of 2 or more helpers is required for the patient to complete the activity. If activity was not attempted, code reason: 7-Patient Refused. 9-Not Applicable-not attempted and the patient did not perform the activity before the current illness, exacerbation or injury. 10-Not Attempted due to Environmental Limitations-(lack of equipment, weather restraints, etc.). 88-Not Attempted due to Medical Conditions or Safety Concerns. OT Short Term Goals Short Term Goals Time Frame: November 21, 2020 Shower/bathe self: 4 Lower body dressin Putting on/taking off footwear: 5 OT Custodial Goals Custodial Goals Time Frame: Dec 05, 2020 Eating (QC): 6 Oral Hygiene (QC): 6 Toileting Hygiene (QC): 6 Shower/Bathe Self (QC): 6 Upper Body Dressing (QC): 6 Lower Body Dressing (QC): 6 On/Off Footwear (QC): 6 Additional Goals: 1-Demonstrate ADL Tasks, 2-Verbalize Understanding, 3- ImproveStrength/Sharon 1=Demonstrate adherence to instructed precautions during ADL tasks. 2=Patient will verbalize/demonstrate understanding of assistive devices/modifications for ADL. 3=Patient will improve strength/tolerance for activity to enable patient to perform ADL's. OT Education/Plan Problem List/Assessment Assessment: Impaired Self-Care Skills Discharge Recommendations Plan/Recommendations: Continue POC Treatment Plan/Plan of Care Patient would benefit from OT for education, treatment and training to promote independence in ADL's, mobility, safety and/or upper extremity function for ADL's. Plan of Care: ADL Retraining, Functional Mobility, Group Exercise/Act as Ind, UE Funct Exercise/Act Treatment Duration: Dec 05, 2020 Frequency: At least 5 of 7 days/Wk (IRF) Estimated Hrs Per Day: 1.5 hours per day Agreement: Yes Rehab Potential: Fair Time/GCodes Start Time: 13:25 Stop Time: 13:55 Total Time Billed (hr/min): 30 Billed Treatment Time 1 visit-ADL 2 (30 min) JACIEL KENNEDY November 11, 2020 14:01
[2020-11-11 19:30] VITALS: BP 144/64
[2020-11-11] MEDS: ENOXAPARIN 40 MG/0.4 ML (LOVENOX) SYR SC SCH (19:38)
--- NOTE | 2020-11-11 20:03 | PM&R Post Admission Assessment ---
PM&R HP Date of Visit: November 11, 2020 Time of Visit: 10:00 History of Present Illness CC: Debility following lumbar spine surgery HPI: This is a 75[facility]WM who [facility] after acute kidney injury and delirium four day hospital stay in order to regain enough function with ambulation and ADLs in order to return back home to live independently with his , Pt has had a significant amount of delirium and hallucinations since [place] after his surgery when I took care of him in consultation status, overall he has done very well, he will need aggressive treatment with assisted devices with fall-risk prevention and speech therapy to help with cognition and will need aggressive supervision in order to be successful at discharge and to remain at home without re-admission risk [facility] hospital course: Hospital course: Pt had an uneventful hospital four day course when he was admitted for acute kidney injury with altered mental status and delirium, following a long slow recovery following an extensive spine surgery at [facility] requiring a [facility] skilled stay for two weeks, was discharged on Tuesday and back in the ER Tuesday for dehydration, at this current time Pt is doing much better, creatinine improve to 1.2, and cardiology is managing his BP, and the rest of his labs looks good, he will continue aggressive treatment with therapy in order to return back to independent living and be successful. Past Bietziv-Aclvpb-Ehusmx Hx Past Med/Social Hx: Reviewed Nursing Past Med/Soc Hx, Reviewed and Corrections made Patient Social History Marrital Status: Employed/Student: retired Alcohol Use: Denies Use Alcohol Beverage of Choice: Other Smoking Status: Current Everyday Smoker Former Smoker, Quit: Jul 04, 1989 Type Used: Cigarettes 2nd Hand Smoke Exposure: No Recent Hopitalizations: No Immunizations Up To Date Date of Pneumonia Vaccine: Apr 03, 2012 Date of Influenza Vaccine: Jul 14, 2020 Seasonal Allergies Seasonal Allergies: No Past Medical History Surgeries: Appendectomy, Gallbladder, Orthopedic, Tonsillectomy Cardiac: High Cholesterol, Hypertension Reproductive: No Sexually Transmitted Disease: No Genitourinary: Kidney Stones, Renal Failure Musculoskeletal: Degenerate Disk Disease, Arthritis, Chronic Back Pain Endocrine: Diabetes, Non-Insulin dep History of Blood Disorders: No Prior Level of Function Bed Mobility: 6 Transfers: 6 Gait: 6 Stairs: 4 Wheelchair Mobility: 5 Indoor Mobility (Ambulation): Independent Stairs: Needed Some Help Prior Devices Use: Manual wheelchair, Walker Self Care: Independent Functional Cognition: Independent Current Level of Fuctioning Roll Left to Right: 4 (SBA) Sit to Lyin Lying to Sitting/Side of Bed: 4 Sit to Stand: 3 Chair/Sva-yi-Twltb Xfer: 3 Car Transfer: 4 (SBA) Does the Patient Walk: Yes Mode of Locomotion: Both Anticipated Mode of Locomotion: Both Walk 10 feet: 3 Walk 50 ft with 2 Turns: 3 Walk 150 ft: 3 Walking 10ft on uneven surface: 3 Gait Assistive Device: FWW Does the Pt Use a Wheelchair: Yes Wheelchair Distance: 10' Wheel 50 ft with 2 turns: 7 Wheel 150 ft: 7 Type of Wheelchair: Manual 1 Step (curb): 7 (unable to simulate home with patient leaning on concreat rail and side stepping up and down step/patient refuses to attempt steps) 4 Steps: 7 (unable to simulate home with patient leaning on concreat rail and side stepping up and down step/patient refuses to attempt steps) 12 Steps: 9 Picking up an Object: 4 (AD) Eatin (Per pt report, able to use utensils and open containers. He reports decreased appetite ) Oral Hygiene: 4 (based on clinical judgement, pt would require CGA with task.) Shower/Bathe Self: 3 (Assist with BLE lower legs/feet in order to maintain back precautions. Assist with buttocks in stand. Pt washed all other parts seated on SC.) Upper Body Dressin (set up with bone puller shirt and back brace) Lower Body Dressin (Assist with threading BLEs, pt able to perform pant hike.) On/Off Footwear: 1 (assist with donning/doffing gripper socks due to back precautions) Toileting Hygiene: 3 (Pt able to manage clothing, assist with hygiene.) PM&R Allergy/Meds/Data Review Allergies Coded Allergies: No Known Drug Allergies (Unverified , 10/16/13) Home Medications Scheduled Amlodipine Besylate (Amlodipine Besylate), 5 MG PO DAILY, (Reported) Aspirin (Aspirin EC), 81 MG PO DAILY, (Reported) Atorvastatin Calcium (Atorvastatin Calcium), 80 MG PO HS, (Reported) Baclofen (Baclofen), 20 MG PO BID, (Reported) Carvedilol (Carvedilol), 12 MG PO BID, (Reported) Celecoxib (Celecoxib), 400 MG PO DAILY, (Reported) Gabapentin (Neurontin), 300 MG PO TID, (Reported) Lisinopril (Lisinopril), 20 MG PO BID, (Reported) Meloxicam (Meloxicam), 15 MG PO DAILY, (Reported) Metformin HCl (Metformin HCl), 1,000 MG PO BID, (Reported) Potassium Citrate (Potassium Citrate ER), 15 MEQ PO BID, (Reported) Spironolactone (Spironolactone), 25 MG PO DAILY, (Reported) Scheduled PRN Sildenafil Citrate (Sildenafil Citrate), 100 MG PO UD PRN for PRN, (Reported) Discontinued Medications Amlodipine Besylate (Amlodipine Besylate), 5 MG PO DAILY, (Reported) Carvedilol (Carvedilol), (Reported) Discontinued Reason: Duplicate Order Carvedilol (Carvedilol), 12.5 MG PO BID, (Reported) Celecoxib (Celecoxib), 400 MG PO DAILY, (Reported) Gabapentin (Gabapentin), (Reported) Discontinued Reason: No Longer Taking Lisinopril (Lisinopril), 20 MG PO BID, (Reported) Meloxicam (Meloxicam), 15 MG PO DAILY, (Reported) Metformin HCl (Metformin HCl), 1,000 MG PO BID, (Reported) Potassium Citrate (Potassium Citrate ER), 15 MEQ PO BID, (Reported) Sildenafil Citrate (Sildenafil Citrate), 100 MG PO UD PRN for PRN, (Reported) Spironolact/Hydrochlorothiazid (Spironolactone-Hctz 25-25 Tab), 1 EACH PO, (Reported) Discontinued Reason: No Longer Taking Spironolactone (Spironolactone), 25 MG PO DAILY, (Reported) [Lasix], (Reported) Discontinued Reason: No Longer Taking Current Medications Current Medications Reviewed Review of Systems Constitutional: see HPI, malaise, weakness EENTM: no symptoms reported Respiratory: no symptoms reported Cardiovascular: no symptoms reported Gastrointestinal: no symptoms reported Genitourinary: decreased output, frequency, hesitancy Musculoskeletal: back pain Skin: no symptoms reported Psychiatric/Neurological: Anxiety, Depressed, Other (confusion/delirium) Physical Exam Physical Exam Vital Signs Vital Signs - First Documented 11/11/20 11/11/20 14:00 19:30 Temp 36.3 Pulse 57 Resp 18 B/P (MAP) 144/64 (90) Pulse Ox 96 O2 Delivery Room Air Capillary Refill : Height, Weight, BMI Height: 6'0.00" Weight: 280lbs. 0.0oz. [id number]; 40.72 BMI Method: General Appearance: No Apparent Distress, WD/WN, Chronically ill Eyes: Bilateral Eye Normal Inspection, Bilateral Eye PERRL HEENT: PERRL/EOMI, Normal ENT Inspection, Pharynx Normal Neck: Full Range of Motion, Normal Inspection, Non Tender, Supple, Carotid Bruit Respiratory: Chest Non Tender, Lungs Clear, Normal Breath Sounds, No Accessory Muscle Use, No Respiratory Distress Cardiovascular: Regular Rate, Rhythm, No Edema, No Gallop, No JVD, No Murmur, Normal Peripheral Pulses Gastrointestinal: Normal Bowel Sounds, No Organomegaly, No Pulsatile Mass, Non Tender, Soft Back: Normal Inspection, No CVA Tenderness, No Vertebral Tenderness Extremity: Normal Capillary Refill, Normal Inspection, Normal Range of Motion, Non Tender, No Calf Tenderness, No Pedal Edema Neurologic/Psychiatric: Alert, Oriented x3, No Motor/Sensory Deficits, Normal Mood/Affect, Disoriented (subtle thought process dysfunction), Motor Weakness (generalized) Skin: Normal Color, Warm/Dry Lymphatic: No Adenopathy PM&R Medical Assessment & Plan REHAB/MEDICAL ASSESSMENT AND PLAN: REHAB IMPAIRMENT GROUP: Lumbar spine surgery with slow recovery ETIOLOGIC DIAGNOSIS: Lumbar spine surgery with slow recovery The comorbidities that impact the patients function and/or functional outcome by: delirium, underlying cognitive deficits, JM, HTN, bradycardia REHAB PLAN: The patient is being admitted to our comprehensive inpatient rehabilitation facility and can tolerate the intensity of service consisting of at least: 180 minutes of therapy a day, 5 out of 7 days a week Rehab treatment will consist of: PT OT will focus on regaining ambulation skil ls and increased ADL independence in order to return home with The patient/family has a good understanding of our discharge process and will benefit from an interdisciplinary inpatient rehabilitation program. The patient has potential to make improvement and is in need of at least two of the following multidisciplinary therapies including but not limited to physical, occupational, speech, and prosthetics and orthotics. Additionally the patient will need services from respiratory, nutritional services, wound care, psychology, etc. (Customize this to each patient). Given the patients complex condition and risk of further medical complications, rehabilitation services cannot be safely or effectively provided at a lower level of care such as a long term facility. BARRIERS TO DISCHARGE: Delirium ESTIMATED LOS: 7 days DISPOSITION: Home RELEVANT CHANGES SINCE PREADMISSION SCREENING: I have compared the patients medical and functional status at the time of the preadmission screening and there are: no changes PROGNOSIS: Good REHABILITATION GOALS: 1.PT OT will focus on regaining ambulation skills and increased ADL independence in order to return home with All the above goals were reviewed with the patient and he/she is in agreement. By signing this document, I acknowledge that I have personally performed a full physical examination on this patient within 24 hours of admission to this inpatient rehabilitation facility and have determined the patient to be able to tolerate the above course of treatment at an intensive level for a reasonable period of time. I will be completing a detailed individualized Plan of Care for this patient by day #4 of the patients stay based upon the Preadmission Screen, the Post-Admission Evaluation, and the therapy evaluations. Admission Dx/Comorbidities: (1) Status post lumbar spine surgery for decompression of spinal cord ICD Codes: Z98.890 - Other specified postprocedural states (2) Delirium ICD Codes: R41.0 - Disorientation, unspecified (3) Back pain ICD Codes: M54.9 - Dorsalgia, unspecified (4) Urinary frequency ICD Codes: R35.0 - Frequency of micturition (5) Hypertension ICD Codes: I10 - Essential (primary) hypertension (6) Hyperlipemia ICD Codes: E78.5 - Hyperlipidemia, unspecified (7) Diabetes ICD Codes: E11.9 - Type 2 diabetes mellitus without complications (8) Smoker ICD Codes: F17.200 - Nicotine dependence, unspecified, uncomplicated (9) Risk for falls ICD Codes: Z91.81 - History of falling (10) Altered mental status Status: Acute ICD Codes: R41.82 - Altered mental status, unspecified (11) Renal failure Status: Acute ICD Codes: N19 - Unspecified kidney failure (12) Dehydration Status: Acute ICD Codes: E86.0 - Dehydration Assessment/Plan Assessment and Plan Assess & Plan/Chief Complaint Assessment: Slow recovery from lumbar spine surgery complicated with dural leak and NH stay Delirium HTN Bradycardia Back pain JM Urinary frequency Anemia Smoker DM Plan: IRF protocol Monitor pain Fall risk SUMAYA JEAN-BAPTISTE DO November 11, 2020 20:03
[2020-11-11] MEDS ORDERED: NON-FORMULARY MEDICATION 1 EA EA (Baclofen 20 MG) PO SCH (21:00)
[2020-11-11] MEDS: GABAPENTIN 300 MG (NEURONTIN) CAP PO SCH (21:09)
[2020-11-11] MEDS: ALPRAZolam 0.25 MG (XANAX) TAB PO PRN (21:09)
[2020-11-11] MEDS: BACLOFEN 10 MG (LIORESAL) TAB PO SCH (21:09)
[2020-11-11] MEDS: MELATONIN 3 MG TABLET PO PRN (21:09)
[2020-11-12 05:35] LABS: BASOPHILS # (AUTO) 0.1 10^3/uL (0.0-0.1); BASOPHILS % (AUTO) 1 % (0-10); EOSINOPHILS # (AUTO) 0.6 10^3/uL (0.0-0.3); EOSINOPHILS % (AUTO) 6 % (0-10); HEMATOCRIT 30 % (40-54); HEMOGLOBIN 9.2 g/dL (13.3-17.7); LYMPHOCYTES # (AUTO) 2.8 10^3/uL (1.0-4.0); LYMPHOCYTES % (AUTO) 27 % (12-44); MEAN CORPUSCULAR HEMOGLOBIN 31 pg (25-34); MEAN CORPUSCULAR HGB CONC 31 g/dL (32-36); MEAN CORPUSCULAR VOLUME 98 fL (80-99); MEAN PLATELET VOLUME 9.2 fL (9.0-12.2); MONOCYTES # (AUTO) 0.7 10^3/uL (0.0-1.0); MONOCYTES % (AUTO) 6 % (0-12); NEUTROPHILS # (AUTO) 6.1 10^3/uL (1.8-7.8); NEUTROPHILS % (AUTO) 60 % (42-75); PLATELET COUNT 321 10^3/uL (130-400); WHITE BLOOD COUNT 10.3 10^3/uL (4.3-11.0)
[2020-11-12 05:45] LABS: ALBUMIN 3.1 GM/DL (3.2-4.5)
[2020-11-12 05:49] LABS: BILIRUBIN,TOTAL 0.7 MG/DL (0.1-1.0)
[2020-11-12 05:51] LABS: CREATININE SERUM 1.24 MG/DL (0.60-1.30)
--- NOTE | 2020-11-12 06:01 | Individualized Plan of Care ---
Individualized Plan of Care Rehab Nursing IPOC Order Admission Date November 11, 2020 at 09:30 Current Orders Orders Admission Order(Inpt,Obs,Sdc) (11/11/20 05:41) Vital Signs: Per Unit Policy ( 00 (11/11/20 05:41) [place]if[place] Hung (11/11/20 05:41) Sequential Compression Device .admit (11/11/20 05:41) [facility]-In[facility] Rehab Con (11/11/20 05:41) Rehab Nursing Orders-Ipoc (11/11/20 05:41) Physical Therapy Rehab Orders (11/11/20 05:41) Occupational Therapy Rehab Ord (11/11/20 05:41) Speech Therapy Rehab Orders (11/11/20 05:41) Cbc With Automated Diff (11/12/20 06:00) Comprehensive Metabolic Panel (11/12/20 06:00) Precautions (Aru) (11/11/20 05:41) Rehab-Intensity Of Therapy (11/11/20 05:41) Initiate Admission Nursing Pro .admission (11/11/20 05:41) Acetaminophen Tablet/Caplet (Tylenol T (11/11/20 05:45) Alprazolam Tablet (Xanax Tablet) (11/11/20 05:45) Calcium Carbonate Chew Tablet (Antacid C (11/11/20 05:45) Diphenhydramine Tablet (Benadryl Tablet) (11/11/20 05:45) Docusate Sodium Capsule (Colace Capsule) (11/11/20 09:00) Docusate Sodium Capsule (Colace Capsule) (11/11/20 05:45) Bisacodyl Suppository (Dulcolax Supposit (11/11/20 05:45) Lactulose Oral Solution (Enulose Oral So (11/11/20 05:45) Na Phos/Na Biphos Enema (Fleet Enema Anthony (11/11/20 05:45) Guaifenesin/Codeine Syrup (Robitussin Ac (11/11/20 05:45) Loperamide Tablet (Imodium Tablet) (11/11/20 05:45) Enoxaparin Injection (Lovenox Injection) (11/11/20 18:00) Melatonin Tablet (Melatonin Tablet) (11/11/20 05:45) Polyethylene Glycol Powder Pkt (Miralax (11/11/20 09:00) Ondansetron Oral Dissolve Tab (Zofran (11/11/20 05:45) Senna S Tablet (Senokot S Tablet) (11/11/20 09:00) Code/Resuscitation (11/11/20 05:41) Initiate Admission Nursing Pro .admission (11/11/20 05:41) Admission Arrival Bed Request (11/11/20 10:14) General/Regular (11/11/20 Lunch) Patient Visit (11/11/20 ) Speech Sound Lang Comp (11/11/20 ) Patient Visit (11/11/20 ) Pt Eval Moderate Complexity (11/11/20 ) Functional Activities, Ea 15 (11/11/20 ) Exercise Therap, Ea 15 Min (11/11/20 ) Amlodipine Tablet (Norvasc Tablet) (11/12/20 09:00) Atorvastatin Tablet (Lipitor Tablet) (11/11/20 21:00) Gabapentin Capsule/Tablet (Neurontin Cap (11/11/20 21:00) (Nf) Baclofen (11/11/20 21:00) Aspirin Enteric Coated Tablet (Ecotrin T (11/12/20 09:00) Baclofen Tablet (Lioresal Tablet) (11/11/20 21:00) Iron Test (Fe) (11/12/20 06:01) Sodium Chloride Flush (Catheter Flush Sy (11/12/20 15:15) Sodium Chloride Flush (Catheter Flush Sy (11/12/20 22:00) Patient Visit (11/12/20 ) Exercise Therap, Ea 15 Min (11/12/20 ) Functional Activities, Ea 15 (11/12/20 ) Gait Training, Ea 15 Min (11/12/20 ) Rehab Nursing Orders: Ongoing Assess. of Cognitive Status, Ongoing Assess. of Function Status, Bladder Management, Bladder Scan, Bladder Training, Bowel Management, Disease Management & Educaiton, DVT Prophylaxis, Fall Prevention, Fluid/Electrolyte/Nutrition Mgmt, Infection Prevention, Medication Management & Education, Management of Risks & Complications, Nutrition Management, Pain Management, Patient/Family Support, Safety Management Intensity of Therapy to be met Patient to be seen: Min.3h per day/5 of 7d PT IPOC Problem List: Activity Tolerance, Functional Strength, Safety, Balance, Gait, Transfer, Bed Mobility Treatment Plan: Continue Plan of Care Bed Mobility, Education, Functional Activity Sharon, Functional Strength, Gait, Safety, Therapeutic Exercise, Transfers Treatment Duration: Dec 06, 2020 Frequency: At least 5 of 7 days/Wk (IRF) Estimated Hrs Per Day: 1.5 hours per day OT IPOC Problems: Impaired Self-Care Skills OT Treatment, Training and Edu: Yes Plan of Care: ADL Retraining, Functional Mobility, Group Exercise/Act as Ind, UE Funct Exercise/Act Treatment Duration: Dec 05, 2020 Frequency: At least 5 of 7 days/Wk (IRF) Estimated Hrs Per Day: 1.[address] IPOC Speech Therapy Treatment Plan: Discontinue ST Treatment Duration: November 11, 2020 Frequency: 1 time per week Estimated Hrs Per Day: .5 hour per day [facility] Mgmt [facility]Case [facility]agemen: Discharge Planning Dietitian/End Finder Forming Department Dietitian/End Finder Forming Department to monitor nutritional status and make changes and/or recommendations as needed and work with speech pathology on dietary upgrades as the occur. Physician IPOC Medical Issues being managed closely and that require the 24 hour availability of a physician: Recent extensive lumbar spine surgery with dural leak and hallucinations and psychosis requiring NH placement for 2 weeks then JM from dehydration will require close monitoring Medical Issues: Bowel/Bladder Function, DVT Prophylaxis, Falls Precautions, Fluid/Electrolyte/Nutrition Balance, Infection Protection, Pain Management Brief Synthesis of Preadmission Screen, Post-Admission Evaluation, and Therapy Evaluations: PT OT will focus on regaining function with ambulation and increased independence in ADL's in order to DC home with Medical Prognosis: Good Anticipated Length of Stay: 6 days SUMAYA JEAN-BAPTISTE DO November 12, 2020 06:01
--- NOTE | 2020-11-12 06:01 | PM&R Progress Note ---
Subjective HPI/CC On Admission Date Seen by Provider: November 12, 2020 Time Seen by Provider: 08:30 Subjective/Events-last exam 11/12/20: Patient doing pretty well Moving around well Eating and drinking well Good sense of humor Appetite is much improved today Loose stools so held laxatives yesterday but now he is having difficulty and declines laxatives Voiding well Review of Systems General: Fatigue, Malaise Musculoskeletal: back pain Neurological: Weakness Objective Exam Vital Signs Vital Signs Date Time Temp Pulse Resp B/P (MAP) Pulse Ox O2 Delivery O2 Flow Rate FiO2 11/12/20 20:15 93 Room Air 11/12/20 20:10 36.6 89 20 142/72 (95) Capillary Refill : General Appearance: No Apparent Distress, WD/WN, Chronically ill HEENT: PERRL/EOMI, Normal ENT Inspection, Pharynx Normal Neck: Full Range of Motion, Normal Inspection, Non Tender, Supple, Carotid Bruit Respiratory: Chest Non Tender, Lungs Clear, Normal Breath Sounds, No Accessory Muscle Use, No Respiratory Distress Cardiovascular: Regular Rate, Rhythm, No Edema, No Gallop, No JVD, No Murmur, Normal Peripheral Pulses Gastrointestinal: Normal Bowel Sounds, No Organomegaly, No Pulsatile Mass, Non Tender, Soft Back: Normal Inspection, No CVA Tenderness, No Vertebral Tenderness Extremity: Normal Capillary Refill, Normal Inspection, Normal Range of Motion, Non Tender, No Calf Tenderness, No Pedal Edema Neurologic/Psychiatric: Alert, Oriented x3, No Motor/Sensory Deficits, Normal Mood/Affect, Disoriented (subtle thought process dysfunction), Motor Weakness (generalized) Skin: Normal Color, Warm/Dry Lymphatic: No Adenopathy Results/Procedures Lab Patient resulted labs reviewed. FIM Transfers Therapy Code Descriptions/Definitions Functional [place] Measure: 0=Not Assessed/NA 4=Minimal Assistance 1=Total Assistance 5=Supervision or Setup 2=Maximal Assistance 6=Modified [place] 3=Moderate Assistance 7=Complete IndependenceSCALE: Activities may be completed with or without assistive devices. 0-Ndqjwnfwxd-jeoyydx completes the activity by him/herself with no assistance from a helper. 5-Set-up or Clean-up Assistance-helper sets up or cleans up; patient completes activity. [place] assists only prior to or following the activity. 4-Supervision or Touching Assistance-helper provides verbal cues and/or touching/steadying and/or contact guard assistance as patient completes activity. Assistance may be provided throughout the activity or intermittently. 3-Partial/Moderate Assistance-helper does LESS THAN HALF the effort. [place] lifts, holds or supports trunk or limbs, but provides less than half the effort. 2-Substantial/Maximal Assistance-helper does MORE THAN HALF the effort. [place] lifts or holds trunk or limbs and provides more than half the effort. 3-Qtmfpcnyv-unztxw does ALL the effort. Patient does none of the effort to complete the activity. Or, the assistance of 2 or more helpers is required for the patient to complete the activity. If activity was not attempted, code reason: 7-Patient Refused. 9-Not Applicable-not attempted and the patient did not perform the activity before the current illness, exacerbation or injury. 10-Not Attempted due to Environmental Limitations-(lack of equipment, weather restraints, etc.). 88-Not Attempted due to Medical Conditions or Safety Concerns. Roll Left to Right (QC): 4 (SBA) Sit to Lying (QC): 4 Sit to Stand (QC): 3 Chair/Xxe-sd-Hdook Xfer(QC): 3 Car Transfer (QC): 4 (SBA) Gait Training Does the Patient Walk?: Yes Walk 10 feet (QC): 3 Walk 50 ft with 2 Turns(QC): 3 Walk 150 ft (QC): 3 Walking 10ft/uneven surface-QC: 3 Gait Assistive Device: FWW Wheelchair Training Does the Pt Use a Wheelchair?: Yes Distance: 10' Wheel 50 ft with 2 turns (QC): 7 Wheel 150 ft (QC): 7 Type of Wheelchair: Manual Stair Training 1 Step (curb) (QC): 7 (unable to simulate home with patient leaning on concreat rail and side stepping up and down step/patient refuses to attempt steps) 4 Steps (QC): 7 (unable to simulate home with patient leaning on concreat rail and side stepping up and down step/patient refuses to attempt steps) 12 Steps (QC): 9 Balance Picking up an Object (QC): 4 (AD) ADL-Treatment Eating (QC): 6 (Per pt report, able to use utensils and open containers. He reports decreased appetite ) Oral Hygiene (QC): 4 (based on clinical judgement, pt would require CGA with task.) Shower/Bathe Self (QC): 3 (Assist with BLE lower legs/feet in order to maintain back precautions. Assist with buttocks in stand. Pt washed all other parts seated on SC.) Upper Body Dressing (QC): 5 (set up with order puller shirt and back brace) Lower Body Dressing (QC): 2 (Assist with threading BLEs, pt able to perform pant hike.) On/Off Footwear (QC): 1 (assist with donning/doffing gripper socks due to back precautions) Toileting Hygiene (QC): 3 (Pt able to manage clothing, assist with hygiene.) Assessment/Plan Assessment and Plan Assess & Plan/Chief Complaint Assessment: Slow recovery from lumbar spine surgery complicated with dural leak and NH stay Delirium HTN Bradycardia Back pain JM Urinary frequency Anemia Smoker DM Plan: IRF protocol Monitor pain Fall risk 11/12/20: Improved status Drinking well No falls (1) Status post lumbar spine surgery for decompression of spinal cord (2) Delirium (3) Back pain (4) Urinary frequency (5) Hypertension (6) Hyperlipemia (7) Diabetes (8) Smoker (9) Risk for falls (10) Altered mental status Status: Acute (11) Renal failure Status: Acute (12) Dehydration Status: Acute SUMAAY JEAN-BAPTISTE DO November 12, 2020 06:01
[2020-11-12 08:00] VITALS: BP 150/69
--- NOTE | 2020-11-12 08:37 | Physical Therapy Daily Note ---
PT Daily Note-Current Subjective Patient upright in chair pre tx, in good mood, consents to therapy. Patient does not c/o pain, reports he had an appetite for the first time this morning and had a good nights sleep, is feeling better. Appearance Patient sitting EOB post tx with nurse call, phone, tray, in room. Mental Status Patient Orientation: Person, Place, Time, Normal For Age TLSO Transfers SCALE: Activities may be completed with or without assistive devices. 3-Fgatbpdspg-fnntbxk completes the activity by him/herself with no assistance from a helper. 5-Set-up or Clean-up Assistance-helper sets up or cleans up; patient completes activity. [place] assists only prior to or following the activity. 4-Supervision or Touching Assistance-helper provides verbal cues and/or touching/steadying and/or contact guard assistance as patient completes activity. Assistance may be provided throughout the activity or intermittently. 3-Partial/Moderate Assistance-helper does LESS THAN HALF the effort. [place] lift s, holds or supports trunk or limbs, but provides less than half the effort. 2-Substantial/Maximal Assistance-helper does MORE THAN HALF the effort. [place] lifts or holds trunk or limbs and provides more than half the effort. 5-Pgrlxsnqa-ufbphb does ALL the effort. Patient does none of the effort to complete the activity. Or, the assistance of 2 or more helpers is required for the patient to complete the activity. If activity was not attempted, code reason: 7-Patient Refused. 9-Not Applicable-not attempted and the patient did not perform the activity before the current illness, exacerbation or injury. 10-Not Attempted due to Environmental Limitations-(lack of equipment, weather restraints, etc.). 88-Not Attempted due to Medical Conditions or Safety Concerns. Sit to Stand (QC): 4 Chair/Uyc-xa-Njjcm Xfer(QC): 4 Toilet Transfer (QC): 4 CGA, good stability with transfers Gait Training Does the Patient Walk?: Yes Distance: 150' x5 Walk 10 feet (QC): 4 Walk 50 ft with 2 Turns(QC): 4 Walk 150 ft (QC): 4 Gait Assistive Device: FWW CGA to SBA. Patient is stable with gait, reciprocal gait pattern, forward flexed posture. Requires rest break after 150', with slight SOB, but patient is motivated to continue walking. Exercises Standing: Hip Abduction, Heel/toe raises, 3 way Ex=Flex, Abd, Ext (Did not complete extension), Marching Standing Reps: 20 Patient was able to perform exercises with good endurance, only required 2 rest breaks in between exercises. NuStep Minutes: 5 (Patient noted he could have tolerated longer on NuStep, but had the urge to have a BM) NuStep Workload: 4 Treatments LE strengthening, gait training, transfers, exercise, toileting for BM (no assist needed and was not actually able to have a BM) Assessment Current Status: Fair Progress Patient demonstrated more energy, endurance, and motivation to complete therapy today PT Cable Driller Goals Cable Driller Goals PT Snf Goals Time Frame: Dec 06, 2020 Roll Left & Right (QC): 6 Sit to Lying (QC): 6 Lying-Sitting on Side/Bed(QC): 6 Sit to Stand (QC): 6 Chair/Afz-zw-Mgfcq Xfer(QC): 6 Toilet Transfer (QC): 6 Car Transfer (QC): 6 Does the Patient Walk: Yes Walk 10 feet (QC): 6 Walk 50ft with 2 Turns (QC): 6 Walk 150 ft (QC): 6 Walking 10ft on Uneven Surface: 6 1 Step (curb) (QC): 3 4 Steps (QC): 9 (inability to simulate home environment and patient not feeling safe to perform) 12 Steps (QC): 9 Picking up an Object (QC): 6 Does the Pt use WC or Scooter?: Yes Wheel 50 feet with 2 turns (QC: 4 Type: Manual Wheel 150 feet: 4 Type: Manual PT Plan Problem List Problem List: Activity Tolerance, Functional Strength, Safety, Balance, Gait, Transfer, Bed Mobility, ROM Treatment/Plan Treatment Plan: Continue Plan of Care Treatment Plan: Bed Mobility, Education, Functional Activity Sharon, Functional Strength, Gait, Safety, Therapeutic Exercise, Transfers Treatment Duration: Dec 06, 2020 Frequency: At least 5 of 7 days/Wk (IRF) Estimated Hrs Per Day: 1.5 hours per day Patient and/or Family Agrees t: Yes Safety Risks/Education Patient Education: Gait Training, Transfer Techniques, Correct Positioning, Safety Issues Teaching Recipient: Patient Teaching Methods: Demonstration, Discussion Response to Teaching: Verbalize Understanding, Return Demonstration Time/GCodes Time In: 0800 Time Out: 0900 Total Billed Treatment Time: 60 Total Billed Treatment 1 visit: FA: 20' EX: x2: 25' GT: 15' ELSY PERALES PT November 12, 2020 08:36
[2020-11-12] MEDS: BACLOFEN 10 MG (LIORESAL) TAB PO SCH ×2 (08:55→21:42)
[2020-11-12] MEDS: amLODIPine 5 MG (NORVASC) TAB PO SCH (08:55)
[2020-11-12] MEDS: ASPIRIN E.C. 81 MG (ECOTRIN) TAB PO SCH (08:55)
[2020-11-12] MEDS: GABAPENTIN 300 MG (NEURONTIN) CAP PO SCH ×3 (08:55→21:41)
[2020-11-12] MEDS: DOCUSATE SODIUM 100 MG (COLACE) CAP PO SCH ×2 (08:56→21:45)
[2020-11-12] MEDS: SENNA W/DOCUSATE (SENOKOT S) TABLET PO SCH ×2 (08:57→21:45)
[2020-11-12] MEDS: polyethylene glycoL POWDER 17 GM (MIRALAX) PACK PO SCH ×2 (08:57→21:45)
[2020-11-12] MEDS ORDERED: PHENAZOPYRIDINE 100 MG (PYRIDIUM) TABLET PO ONE (09:15)
--- NOTE | 2020-11-12 10:52 | Occupational Ther Daily Note ---
OT Current Status-Daily Note Subjective Pt in recliner, agreeable to OT Tx. Pt denies having pain Mental Status/Objective Patient Orientation: Person, Place, Situation ADL-Treatment Therapy Code Descriptions/Definitions Functional [place] Measure: 0=Not Assessed/NA 4=Minimal Assistance 1=Total Assistance 5=Supervision or Setup 2=Maximal Assistance 6=Modified [place] 3=Moderate Assistance 7=Complete IndependenceSCALE: Activities may be completed with or without assistive devices. 8-Pqudtodetf-dnsbdjy completes the activity by him/herself with no assistance from a helper. 5-Set-up or Clean-up Assistance-helper sets up or cleans up; patient completes activity. [place] assists only prior to or following the activity. 4-Supervision or Touching Assistance-helper provides verbal cues and/or touching/steadying and/or contact guard assistance as patient completes activity. Assistance may be provided throughout the activity or intermittently. 3-Partial/Moderate Assistance-helper does LESS THAN HALF the effort. [place] lifts, holds or supports trunk or limbs, but provides less than half the effort. 2-Substantial/Maximal Assistance-helper does MORE THAN HALF the effort. [place] lifts or holds trunk or limbs and provides more than half the effort. 3-Chcuxcdch-arkigj does ALL the effort. Patient does none of the effort to complete the activity. Or, the assistance of 2 or more helpers is required for the patient to complete the activity. If activity was not attempted, code reason: 7-Patient Refused. 9-Not Applicable-not attempted and the patient did not perform the activity b efore the current illness, exacerbation or injury. 10-Not Attempted due to Environmental Limitations-(lack of equipment, weather restraints, etc.). 88-Not Attempted due to Medical Conditions or Safety Concerns. Oral Hygiene (QC): 6 (IND seated at sink) Toileting Hygiene (QC): 4 (SBA) Toilet Transfer (QC): 4 (SBA) Other Treatment Pt laying in bed, transferred supine to sit EOB SBA. Pt donned back brace, then used FWW to ambulate into bathroom with SBA. Pt completed toileting, then stood at sink. Pt attempted to shave standing, but requests chair. Pt sits in chair to complete oral care and shaving IND. Pt used FWW to ambulate to therapy gym, CGA. OT tx with focus on increasing BUE Strength and activity tolerance, and increasing fine motor strength/coordination. Pt completed pegboard, placing/removing x100 pegs into foam pegboard, 1lb wrist weights BUEs. Pt took rest breaks as needed. He then completed nut/bolt activity, 1lb wrist weights on each hand, 1 rest break with task. Pt dropped x3 nuts on floor, requiring assistance to pick up driver. He then completed fine motor theraputty task, removing beads from heavy resistance putty, 1lb wrist weights BUEs. Pt completed graded clothes pin task, placing/removing 1-5lb clothespin from bar, 1lb wrist cuff BUEs, completed task x1 each hand. Pt used FWW to return to room, SBA, 1 seated rest break. Post tx, pt in bed, call light in reach and all needs met. Education OT Patient Education: Correct positioning, Energy conservation, Exercise program, Modified ADL techniques, Progress toward Goal/Update tx plan, Purpose of tx/functional activities, Rehab process, Safety issues Teaching Recipient: Patient Teaching Methods: Discussion Response to Teaching: Verbalize Understanding OT Short Term Goals Short Term Goals Time Frame: November 21, 2020 Shower/bathe self: 4 Lower body dressin Putting on/taking off footwear: 5 OT Jail Goals Jail Goals Time Frame: Dec 05, 2020 Eating (QC): 6 Oral Hygiene (QC): 6 Toileting Hygiene (QC): 6 Shower/Bathe Self (QC): 6 Upper Body Dressing (QC): 6 Lower Body Dressing (QC): 6 On/Off Footwear (QC): 6 Additional Goals: 1-Demonstrate ADL Tasks, 2-Verbalize Understanding, 3- ImproveStrength/Sharon 1=Demonstrate adherence to instructed precautions during ADL tasks. 2=Patient will verbalize/demonstrate understanding of assistive devices/modifications for ADL. 3=Patient will improve strength/tolerance for activity to enable patient to perform ADL's. OT Education/Plan Problem List/Assessment Assessment: Decreased Activ Tolerance, Decreased UE Strength, Impaired I ADL's, Impaired Self-Care Skills, Restricted Funct UE ROM Discharge Recommendations Plan/Recommendations: Continue POC Treatment Plan/Plan of Care Patient would benefit from OT for education, treatment and training to promote independence in ADL's, mobility, safety and/or upper extremity function for ADL's. Plan of Care: ADL Retraining, Functional Mobility, Group Exercise/Act as Ind, UE Funct Exercise/Act Treatment Duration: Dec 05, 2020 Frequency: At least 5 of 7 days/Wk (IRF) Estimated Hrs Per Day: 1.5 hours per day Agreement: Yes Rehab Potential: Fair Time/GCodes Start Time: 10:00 Stop Time: 11:30 Total Time Billed (hr/min): 90 Billed Treatment Time 1, ADL (15'), FA 5 (75') DARSHAN ECHOLS OT November 12, 2020 10:52
--- NOTE | 2020-11-12 11:54 | Cardiology Progress Note ---
Subjective Date Seen by Provider: November 12, 2020 Time Seen by Provider: 11:50 Subjective/Events-last exam Patient is with PT, no new complaints, denies any chest pain or dyspnea. Objective-Cardiology Exam Last Set of Vital Signs Vital Signs 11/12/20 11/12/20 08:00 09:31 Temp 36.4 Pulse 63 Resp 20 B/P (MAP) 150/69 (96) Pulse Ox 98 O2 Delivery Room Air Capillary Refill : General: Alert, Oriented X3, Cooperative HEENT: Atraumatic, PERRLA Neck: Supple, No JVD, No Thyromegaly Lungs: Clear to Auscultation, Normal Air Movement Heart: Regular Rate, Normal S1, Normal S2, No Murmurs Abdomen: Normal Bowel Sounds, Soft, No Tenderness, No Hepatosplenomegaly, No Masses Skin: No Rashes, No Significant Lesion Neuro: Normal Speech Psych/Mental Status: Mental Status NL, Mood NL Results Lab Laboratory Tests 11/12/20 05:19 A/P-Cardiology Admission Diagnosis AMS HTN HLP DM Assessment/Plan AMS secondary to ARF and dehydration, probably hypotensive episode, better at this time. Continue to monitor Sinus bradycardia, probably secondary to medication, heart rate improved. ARF, dehydration, improving, continue to monitor renal function. Hypertension, restarted on Norvasc. Blood pressure better controlled, continue to monitor. HLP- maintained on statin, continue to monitor DM- management per PCP Hyperkalemia, improved. Patient reported that he was taking potassium citrate as an outpatient, recommend stopping it Obesity Recent back surgery approx [address] Suh Multiple risk factors for underlying CAD, reports he underwent recent stress test and echo done at [facility] in just prior to back surgery. I will try to obtain a copy for further review. Patient was seen and evaluated with [place], examination performed, management plan was discussed, agree with the current scribed note, I made few changes to the note using Italic font Patient was seen during physical therapy session Feeling better Blood pressure is better stable Continue to monitor blood pressure and lipids, monitor H&H Still having mild orthostatic dizziness. Supervisory-Addendum Brief Supervisory Addendum Participated in pt care: history, MDM, physical Personally performed: exam, history, MDM Care discussed with: SIENNA MUNIZ November 12, 2020 11:54 am NEYMAR EVANS MD November 12, 2020 1:00 pm
--- NOTE | 2020-11-12 11:57 | Physical Therapy Daily Note ---
PT Daily Note-Current Subjective Patient seated EOB pre tx, consents to therapy, reports fatigue in back but denies pain. Appearance Patient seated upright EOB, with call button and tray table within reach. All needs met. Mental Status Patient Orientation: Person, Place, Time, Normal For Age TLSO Transfers SCALE: Activities may be completed with or without assistive devices. 2-Feloceqzfc-ysqtmda completes the activity by him/herself with no assistance from a helper. 5-Set-up or Clean-up Assistance-helper sets up or cleans up; patient completes activity. [place] assists only prior to or following the activity. 4-Supervision or Touching Assistance-helper provides verbal cues and/or touching/steadying and/or contact guard assistance as patient completes activit y. Assistance may be provided throughout the activity or intermittently. 3-Partial/Moderate Assistance-helper does LESS THAN HALF the effort. [place] lifts, holds or supports trunk or limbs, but provides less than half the effort. 2-Substantial/Maximal Assistance-helper does MORE THAN HALF the effort. [place] lifts or holds trunk or limbs and provides more than half the effort. 1-Urddyxdsf-xqntkn does ALL the effort. Patient does none of the effort to complete the activity. Or, the assistance of 2 or more helpers is required for the patient to complete the activity. If activity was not attempted, code reason: 7-Patient Refused. 9-Not Applicable-not attempted and the patient did not perform the activity before the current illness, exacerbation or injury. 10-Not Attempted due to Environmental Limitations-(lack of equipment, weather restraints, etc.). 88-Not Attempted due to Medical Conditions or Safety Concerns. Sit to Stand (QC): 4 Chair/Oqi-ow-Csuqc Xfer(QC): 4 CGA to SBA Gait Training Does the Patient Walk?: Yes Distance: 120' x2 Walk 10 feet (QC): 4 Walk 50 ft with 2 Turns(QC): 4 Gait Assistive Device: FWW CGA. Patient was steady with gait during first ambulation, during final walk back to room patient demonstrated slight unsteadiness and increased flexed posture with gait, but was able to maintain good pacing. Exercises Seated Therapy Exercises: Ankle pumps, Long arc quads Seated Reps: 20 NuStep Minutes: 12 NuStep Workload: 4 Treatments LE strengthening, gait training, endurance Assessment Current Status: Good Progress Patient tolerated NuStep well, only needed slight rest break following exercise before beginning ambulation back to room PT Fpc Goals Instrument Technician Goals PT Fpc Goals Time Frame: Dec 06, 2020 Roll Left & Right (QC): 6 Sit to Lying (QC): 6 Lying-Sitting on Side/Bed(QC): 6 Sit to Stand (QC): 6 Chair/Ewr-gf-Nqlsw Xfer(QC): 6 Toilet Transfer (QC): 6 Car Transfer (QC): 6 Does the Patient Walk: Yes Walk 10 feet (QC): 6 Walk 50ft with 2 Turns (QC): 6 Walk 150 ft (QC): 6 Walking 10ft on Uneven Surface: 6 1 Step (curb) (QC): 3 4 Steps (QC): 9 (inability to simulate home environment and patient not feeling safe to perform) 12 Steps (QC): 9 Picking up an Object (QC): 6 Does the Pt use WC or Scooter?: Yes Wheel 50 feet with 2 turns (QC: 4 Type: Manual Wheel 150 feet: 4 Type: Manual PT Plan Problem List Problem List: Activity Tolerance, Functional Strength, Safety, Balance, Gait, Transfer, Bed Mobility, ROM Treatment/Plan Treatment Plan: Continue Plan of Care Treatment Plan: Bed Mobility, Education, Functional Activity [place], Functional Strength, Gait, Safety, Therapeutic Exercise, Transfers Treatment Duration: Dec 06, 2020 Frequency: At least 5 of 7 days/Wk (IRF) Estimated Hrs Per Day: 1.5 hours per day Patient and/or Family Agrees t: Yes Safety Risks/Education Patient Education: Gait Training, Transfer Techniques, Correct Positioning, Sa fety Issues Teaching Recipient: Patient Teaching Methods: Demonstration, Discussion Response to Teaching: Verbalize Understanding, Return Demonstration Time/GCodes Time In: 1130 Time Out: 1200 Total Billed Treatment Time: 30 Total Billed Treatment 1 visit: EX: 20' FA: 10' ELSY PERALES PT November 12, 2020 11:57
[2020-11-12] MEDS ORDERED: PHENAZOPYRIDINE 100 MG (PYRIDIUM) TABLET PO SCH (14:00)
[2020-11-12] MEDS ORDERED: CATHETER FLUSH 10 ML SYR IV PRN (15:15)
[2020-11-12] MEDS: ENOXAPARIN 40 MG/0.4 ML (LOVENOX) SYR SC SCH (17:49)
[2020-11-12 20:10] VITALS: BP 142/72
[2020-11-12] MEDS: MELATONIN 3 MG TABLET PO PRN (21:41)
[2020-11-12] MEDS: CATHETER FLUSH 10 ML SYR IV SCH (21:42)
[2020-11-13] MEDS: CATHETER FLUSH 10 ML SYR IV SCH ×3 (06:13→20:42)
[2020-11-13 07:58] VITALS: BP 140/67
[2020-11-13] MEDS: amLODIPine 5 MG (NORVASC) TAB PO SCH (08:04)
[2020-11-13] MEDS: ASPIRIN E.C. 81 MG (ECOTRIN) TAB PO SCH (08:04)
[2020-11-13] MEDS: GABAPENTIN 300 MG (NEURONTIN) CAP PO SCH ×3 (08:04→20:42)
[2020-11-13] MEDS: BACLOFEN 10 MG (LIORESAL) TAB PO SCH ×2 (08:04→20:42)
[2020-11-13] MEDS: polyethylene glycoL POWDER 17 GM (MIRALAX) PACK PO SCH ×2 (08:06→19:16)
[2020-11-13] MEDS: DOCUSATE SODIUM 100 MG (COLACE) CAP PO SCH ×2 (08:06→19:16)
[2020-11-13] MEDS: SENNA W/DOCUSATE (SENOKOT S) TABLET PO SCH ×2 (08:07→19:16)
--- NOTE | 2020-11-13 08:29 | Cardiology Progress Note ---
Subjective Date Seen by Provider: November 13, 2020 Time Seen by Provider: 08:00 Subjective/Events-last exam Pt comfortable sitting up in chair. Says orthostatic dizziness has improved. No new complaints. Denies cp/palpitations/dizziness/syncope. Review of Systems General: No Chills, No Night Sweats; Fatigue HEENT: No Head Aches, No Visual Changes Pulmonary: No Dyspnea, No Cough Cardiovascular: No: Chest Pain, Palpitations Gastrointestinal: No: Nausea, Vomiting, Abdominal Pain Genitourinary: No Dysuria, No Frequency Musculoskeletal: back pain; No: shoulder pain Neurological: No: Weakness, Numbness Objective-Cardiology Exam Last Set of Vital Signs Vital Signs 11/13/20 07:58 Temp 36.9 Pulse 73 Resp 18 B/P (MAP) 140/67 (91) Pulse Ox 97 O2 Delivery Room Air Capillary Refill : General: Alert, Oriented X3, Cooperative HEENT: Atraumatic, PERRLA Neck: Supple, No JVD, No Thyromegaly Lungs: Clear to Auscultation, Normal Air Movement Heart: Regular Rate, Normal S1, Normal S2, No Murmurs Abdomen: Normal Bowel Sounds, Soft, No Tenderness, No Hepatosplenomegaly, No Masses Extremities: No Clubbing, No Cyanosis Skin: No Rashes, No Significant Lesion Neuro: Normal Speech Psych/Mental Status: Mental Status NL, Mood NL A/P-Cardiology Admission Diagnosis AMS HTN HLP DM Assessment/Plan AMS secondary to ARF and dehydration, probably hypotensive episode, better at this time. Continue to monitor Sinus bradycardia, probably secondary to medication, heart rate improved. ARF, dehydration, improving, continue to monitor renal function. Hypertension, restarted on Norvasc. Blood pressure better controlled, continue to monitor. HLP- maintained on statin, continue to monitor DM- management per PCP Hyperkalemia, improved. Patient reported that he was taking potassium citrate as an outpatient, recommend stopping it Obesity Recent back surgery approx [address] Suh Multiple risk factors for underlying CAD, reports he underwent recent stress test and echo done at [facility] in just prior to back surgery. I will try to obtain a copy for further review. Supervisory-Addendum Brief Verification & Attestation Participated in pt care: history, MDM, physical Personally performed: exam, history, MDM, supervision of care Care discussed with: Medical Student Procedures: n/a Results interpretation: Verified all documentation Verification and Attestation of Medical Student E/M Service A medical student performed and documented this service in my presence. I reviewed and verified all information documented by the medical student and made modifications to such information, when appropriate. I personally performed the physical exam and medical decision making. Neymar Rodriguez, November 13, 2020,08:51 ALICIA ARCOS MED STUDENT November 13, 2020 08:29 NEYMAR RODRIGUEZ MD November 13, 2020 08:51
--- NOTE | 2020-11-13 09:37 | Occupational Ther Daily Note ---
OT Current Status-Daily Note Subjective Pt up in recliner, agreeable to OT Tx. Pt reports he slept well last night. Mental Status/Objective Patient Orientation: Person, Place, Time, Situation ADL-Treatment Therapy Code Descriptions/Definitions Functional [place] Measure: 0=Not Assessed/NA 4=Minimal Assistance 1=Total Assistance 5=Supervision or Setup 2=Maximal Assistance 6=Modified [place] 3=Moderate Assistance 7=Complete IndependenceSCALE: Activities may be completed with or without assistive devices. 6-Lvixgxjpwh-goltxjr completes the activity by him/herself with no assistance from a helper. 5-Set-up or Clean-up Assistance-helper sets up or cleans up; patient completes activity. [place] assists only prior to or following the activity. 4-Supervision or Touching Assistance-helper provides verbal cues and/or touching/steadying and/or contact guard assistance as patient completes activity. Assistance may be provided throughout the activity or intermittently. 3-Partial/Moderate Assistance-helper does LESS THAN HALF the effort. [place] lifts, holds or supports trunk or limbs, but provides less than half the effort. 2-Substantial/Maximal Assistance-helper does MORE THAN HALF the effort. [place] lifts or holds trunk or limbs and provides more than half the effort. 1-Qmduklcou-obvzts does ALL the effort. Patient does none of the effort to complete the activity. Or, the assistance of 2 or more helpers is required for the patient to complete the activity. If activity was not attempted, code reason: 7-Patient Refused. 9-Not Applicable-not attempted and the patient did not perform the activity before the current illness, exacerbation or injury. 10-Not Attempted due to Environmental Limitations-(lack of equipment, weather restraints, etc.). 88-Not Attempted due to Medical Conditions or Safety Concerns. Toileting Hygiene (QC): 4 (supervision) Toilet Transfer (QC): 4 (supervision) Other Treatment Pt seated in recliner. He declined completing ADLS on this date, preferring to shower tomorrow. He donned back brace with set up assist, then used FWW to perform functional mobility to therapy gym, no rest breaks. In order to increase BUE Strength and activity tolerance, pt placed/removed 1" pegs from pegboard, alternating hands, 1 lb wrist cuffs BUEs. He completed fine motor nut/bolt task, 1 lb wrist cuff BUEs. He completed x16 bolts, x2 sets. He then placed/removed graded clothespin task (1-5lb), 1lb wrist cuff BUEs, x1 through with RUE then x1 with LUE. Throughout tx, pt took rest breaks as needed. He used FWW to return to his room, SBA, and into bathroom. Pt completed toileting, stood at sink to wash hands, then transferred to recliner. Post tx, pt seated in recliner, call light in reach and all needs met. Education OT Patient Education: Correct positioning, Modified ADL techniques, Progress toward Goal/Update tx plan, Purpose of tx/functional activities, Rehab process Teaching Recipient: Patient Teaching Methods: Discussion Response to Teaching: Verbalize Understanding OT Short Term Goals Short Term Goals Time Frame: November 21, 2020 Shower/bathe self: 4 Lower body dressin Putting on/taking off footwear: 5 OT Mcfp Goals Clinical Quality Assurance Associate Goals Time Frame: Dec 05, 2020 Eating (QC): 6 Oral Hygiene (QC): 6 Toileting Hygiene (QC): 6 Shower/Bathe Self (QC): 6 Upper Body Dressing (QC): 6 Lower Body Dressing (QC): 6 On/Off Footwear (QC): 6 Additional Goals: 1-Demonstrate ADL Tasks, 2-Verbalize Understanding, 3- ImproveStrength/Sharon 1=Demonstrate adherence to instructed precautions during ADL tasks. 2=Patient will verbalize/demonstrate understanding of assistive devices/modifications for ADL. 3=Patient will improve strength/tolerance for activity to enable patient to perform ADL's. OT Education/Plan Problem List/Assessment Assessment: Decreased Activ Tolerance, Decreased UE Strength, Impaired Funct Balance, Impaired I ADL's, Impaired Self-Care Skills, Restricted Funct UE ROM Discharge Recommendations Plan/Recommendations: Continue POC Treatment Plan/Plan of Care Patient would benefit from OT for education, treatment and training to promote independence in ADL's, mobility, safety and/or upper extremity function for ADL's. Plan of Care: ADL Retraining, Functional Mobility, Group Exercise/Act as Ind, UE Funct Exercise/Act Treatment Duration: Dec 05, 2020 Frequency: At least 5 of 7 days/Wk (IRF) Estimated Hrs Per Day: 1.5 hours per day Agreement: Yes Rehab Potential: Fair Time/GCodes Start Time: 09:15 Stop Time: 10:45 Total Time Billed (hr/min): 90 Billed Treatment Time 1, FA 5 (80'), ADL (10') DARSHAN ECHOLS OT November 13, 2020 09:37
--- NOTE | 2020-11-13 11:08 | PM&R Progress Note ---
Subjective HPI/CC On Admission Date Seen by Provider: November 13, 2020 Time Seen by Provider: 11:15 Subjective/Events-last exam 11/13/20: Doing much better Feels like himself now No complaints BM yesterday 11/12/20: Patient doing pretty well Moving around well Eating and drinking well Good sense of humor Appetite is much improved today Loose stools so held laxatives yesterday but now he is having difficulty and declines laxatives Voiding well Review of Systems General: Fatigue, Malaise Neurological: Weakness Objective Exam Vital Signs Vital Signs Date Time Temp Pulse Resp B/P (MAP) Pulse Ox O2 Delivery O2 Flow Rate FiO2 11/13/20 20:43 Room Air 11/13/20 20:33 37.1 73 18 121/57 (78) 96 Capillary Refill : General Appearance: No Apparent Distress, WD/WN, Chronically ill HEENT: PERRL/EOMI, Normal ENT Inspection, Pharynx Normal Neck: Full Range of Motion, Normal Inspection, Non Tender, Supple, Carotid Bruit Respiratory: Chest Non Tender, Lungs Clear, Normal Breath Sounds, No Accessory Muscle Use, No Respiratory Distress Cardiovascular: Regular Rate, Rhythm, No Edema, No Gallop, No JVD, No Murmur, Normal Peripheral Pulses Gastrointestinal: Normal Bowel Sounds, No Organomegaly, No Pulsatile Mass, Non Tender, Soft Back: Normal Inspection, No CVA Tenderness, No Vertebral Tenderness Extremity: Normal Capillary Refill, Normal Inspection, Normal Range of Motion, Non Tender, No Calf Tenderness, No Pedal Edema Neurologic/Psychiatric: Alert, Oriented x3, No Motor/Sensory Deficits, Normal Mood/Affect, Disoriented, Motor Weakness Skin: Normal Color, Warm/Dry Lymphatic: No Adenopathy Results/Procedures Lab Patient resulted labs reviewed. FIM Transfers Therapy Code Descriptions/Definitions Functional [place] Measure: 0=Not Assessed/NA 4=Minimal Assistance 1=Total Assistance 5=Supervision or Setup 2=Maximal Assistance 6=Modified [place] 3=Moderate Assistance 7=Complete IndependenceSCALE: Activities may be completed with or without assistive devices. 5-Fmpzfyjpfs-xsqpqpt completes the activity by him/herself with no assistance from a helper. 5-Set-up or Clean-up Assistance-helper sets up or cleans up; patient completes activity. [place] assists only prior to or following the activity. 4-Supervision or Touching Assistance-helper provides verbal cues and/or touching/steadying and/or contact guard assistance as patient completes activity. Assistance may be provided throughout the activity or intermittently. 3-Partial/Moderate Assistance-helper does LESS THAN HALF the effort. [place] lifts, holds or supports trunk or limbs, but provides less than half the effort. 2-Substantial/Maximal Assistance-helper does MORE THAN HALF the effort. [place] lifts or holds trunk or limbs and provides more than half the effort. 5-Krajedxae-dumnoy does ALL the effort. Patient does none of the effort to complete the activity. Or, the assistance of 2 or more helpers is required for the patient to complete the activity. If activity was not attempted, code reason: 7-Patient Refused. 9-Not Applicable-not attempted and the patient did not perform the activity befo re the current illness, exacerbation or injury. 10-Not Attempted due to Environmental Limitations-(lack of equipment, weather re straints, etc.). 88-Not Attempted due to Medical Conditions or Safety Concerns. Roll Left to Right (QC): 4 (SBA) Sit to Lying (QC): 4 Sit to Stand (QC): 4 Chair/Cnu-mm-Vvjvo Xfer(QC): 4 Car Transfer (QC): 4 (SBA) Gait Training Does the Patient Walk?: Yes Distance: 120' x2 Walk 10 feet (QC): 4 Walk 50 ft with 2 Turns(QC): 4 Walk 150 ft (QC): 4 Walking 10ft/uneven surface-QC: 3 Gait Assistive Device: FWW Wheelchair Training Does the Pt Use a Wheelchair?: No Distance: 10' Wheel 50 ft with 2 turns (QC): 7 Wheel 150 ft (QC): 7 Type of Wheelchair: N/A Stair Training 1 Step (curb) (QC): 7 (unable to simulate home with patient leaning on concreat rail and side stepping up and down step/patient refuses to attempt steps) 4 Steps (QC): 7 (unable to simulate home with patient leaning on concreat rail and side stepping up and down step/patient refuses to attempt steps) 12 Steps (QC): 9 Balance Picking up an Object (QC): 4 (AD) ADL-Treatment Eating (QC): 6 (Per pt report, able to use utensils and open containers. He reports decreased appetite ) Oral Hygiene (QC): 6 (IND seated at sink) Shower/Bathe Self (QC): 3 (Assist with BLE lower legs/feet in order to maintain back precautions. Assist with buttocks in stand. Pt washed all other parts seated on SC.) Upper Body Dressing (QC): 5 (set up with machine puller and laster shirt and back brace) Lower Body Dressing (QC): 2 (Assist with threading BLEs, pt able to perform pant hike.) On/Off Footwear (QC): 1 (assist with donning/doffing gripper socks due to back precautions) Toileting Hygiene (QC): 4 (supervision) Toilet Transfer (QC): 4 (supervision) Assessment/Plan Assessment and Plan Assess & Plan/Chief Complaint Assessment: Slow recovery from lumbar spine surgery complicated with dural leak and NH stay Delirium HTN Bradycardia Back pain JM Urinary frequency Anemia Smoker DM Plan: IRF protocol Monitor pain Fall risk 11/12/20: Improved status Drinking well No falls 11/13/20: Monitor pain Fall risk (1) Status post lumbar spine surgery for decompression of spinal cord (2) Delirium (3) Back pain (4) Urinary frequency (5) Hypertension (6) Hyperlipemia (7) Diabetes (8) Smoker (9) Risk for falls (10) Altered mental status Status: Acute (11) Renal failure Status: Acute (12) Dehydration Status: Acute SUMAYA JEAN-BAPTISTE DO November 13, 2020 11:08
--- NOTE | 2020-11-13 11:58 | Physical Therapy Daily Note ---
PT Daily Note-Current Subjective Patient reports he feels amazing and is ready for PT. Mental Status Patient Orientation: Normal For Age Transfers SCALE: Activities may be completed with or without assistive devices. 1-Rmwxkxaqdr-kzobyju completes the activity by him/herself with no assistance from a helper. 5-Set-up or Clean-up Assistance-helper sets up or cleans up; patient completes activity. [place] assists only prior to or following the activity. 4-Supervision or Touching Assistance-helper provides verbal cues and/or touchi ng/steadying and/or contact guard assistance as patient completes activity. Assistance may be provided throughout the activity or intermittently. 3-Partial/Moderate Assistance-helper does LESS THAN HALF the effort. [place] lifts, holds or supports trunk or limbs, but provides less than half the effort. 2-Substantial/Maximal Assistance-helper does MORE THAN HALF the effort. [place] lifts or holds trunk or limbs and provides more than half the effort. 8-Zqvmchjfx-yxrrcm does ALL the effort. Patient does none of the effort to complete the activity. Or, the assistance of 2 or more helpers is required for the patient to complete the activity. If activity was not attempted, code reason: 7-Patient Refused. 9-Not Applicable-not attempted and the patient did not perform the activity before the current illness, exacerbation or injury. 10-Not Attempted due to Environmental Limitations-(lack of equipment, weather restraints, etc.). 88-Not Attempted due to Medical Conditions or Safety Concerns. Sit to Stand (QC): 5 Gait Training Does the Patient Walk?: Yes Distance: 150 x 2/300x 3 Walk 10 feet (QC): 5 Walk 50 ft with 2 Turns(QC): 5 Walk 150 ft (QC): 5 Gait Assistive Device: FWW safe and functional with no deviation Wheelchair Training Does the Pt Use a Wheelchair?: No Exercises Seated Therapy Exercises: Ankle pumps, Long arc quads, Hip flexion, Glut set Seated Reps: 15 (3 sets) Standing: Heel/toe raises, 3 way Ex=Flex, Abd, Ext, Mini squats Standing Reps: 15 (3 sets) Assessment Patient requires seated recovery periods between ambulation and exercise sets. Patient is highly motivated with progress. Patient educated on safety with up in room to restroom independently only when he feels strong enough. Patient voices understanding. Nursing notified. PT Detention Goals Detention Goals PT Detention Goals Time Frame: Dec 06, 2020 Roll Left & Right (QC): 6 Sit to Lying (QC): 6 Lying-Sitting on Side/Bed(QC): 6 Sit to Stand (QC): 6 Chair/Tzm-kq-Rhvby Xfer(QC): 6 Toilet Transfer (QC): 6 Car Transfer (QC): 6 Does the Patient Walk: Yes Walk 10 feet (QC): 6 Walk 50ft with 2 Turns (QC): 6 Walk 150 ft (QC): 6 Walking 10ft on Uneven Surface: 6 1 Step (curb) (QC): 3 4 Steps (QC): 9 (inability to simulate home environment and patient not feeling safe to perform) 12 Steps (QC): 9 Picking up an Object (QC): 6 Does the Pt use WC or Scooter?: Yes Wheel 50 feet with 2 turns (QC: 4 Type: Manual Wheel 150 feet: 4 Type: Manual PT Plan Treatment/Plan Treatment Plan: Continue Plan of Care Treatment Plan: Bed Mobility, Education, Functional Activity [place], Functional Strength, Gait, Safety, Therapeutic Exercise, Transfers Treatment Duration: Dec 06, 2020 Frequency: At least 5 of 7 days/Wk (IRF) Estimated Hrs Per Day: 1.5 hours per day Patient and/or Family Agrees t: Yes Time/GCodes Time In: 1057 Time Out: 1157 Total Billed Treatment Time: 60 Total Billed Treatment 1 visit EX x 2 30 min FA x 2 30 min JANESSA HERNANDEZ PT November 13, 2020 11:58
--- NOTE | 2020-11-13 14:11 | Physical Therapy Daily Note ---
PT Daily Note-Current Subjective Patient agrees to PT. No c/o. Mental Status Patient Orientation: Normal For Age Transfers SCALE: Activities may be completed with or without assistive devices. 9-Qagtcusjxw-chdvijg completes the activity by him/herself with no assistance from a helper. 5-Set-up or Clean-up Assistance-helper sets up or cleans up; patient completes activity. [place] assists only prior to or following the activity. 4-Supervision or Touching Assistance-helper provides verbal cues and/or touching/steadying and/or contact guard assistance as patient completes activity. Assistance may be provided throughout the activity or intermittently. 3-Partial/Moderate Assistance-helper does LESS THAN HALF the effort. [place] lifts, holds or supports trunk or limbs, but provides less than half the effort. 2-Substantial/Maximal Assistance-helper does MORE THAN HALF the effort. [place] lifts or holds trunk or limbs and provides more than half the effort. 6-Hzngjfjkh-wctjbl does ALL the effort. Patient does none of the effort to c omplete the activity. Or, the assistance of 2 or more helpers is required for the patient to complete the activity. If activity was not attempted, code reason: 7-Patient Refused. 9-Not Applicable-not attempted and the patient did not perform the activity before the current illness, exacerbation or injury. 10-Not Attempted due to Environmental Limitations-(lack of equipment, weather restraints, etc.). 88-Not Attempted due to Medical Conditions or Safety Concerns. Sit to Stand (QC): 5 Gait Training Does the Patient Walk?: Yes Distance: 300' x 2 Walk 10 feet (QC): 5 Walk 50 ft with 2 Turns(QC): 5 Walk 150 ft (QC): 5 Gait Assistive Device: FWW flexed knee posture/functional gait sequence Exercises NuStep Minutes: 14 NuStep Workload: 4 (to improve strength and mobility) Assessment Patient very motivated with continued progress. Increase activity as tolerated. PT Distributor Sales Manager Goals Alf Goals PT Alf Goals Time Frame: Dec 06, 2020 Roll Left & Right (QC): 6 Sit to Lying (QC): 6 Lying-Sitting on Side/Bed(QC): 6 Sit to Stand (QC): 6 Chair/Mht-sv-Urhxw Xfer(QC): 6 Toilet Transfer (QC): 6 Car Transfer (QC): 6 Does the Patient Walk: Yes Walk 10 feet (QC): 6 Walk 50ft with 2 Turns (QC): 6 Walk 150 ft (QC): 6 Walking 10ft on Uneven Surface: 6 1 Step (curb) (QC): 3 4 Steps (QC): 9 (inability to simulate home environment and patient not feeling safe to perform) 12 Steps (QC): 9 Picking up an Object (QC): 6 Does the Pt use WC or Scooter?: Yes Wheel 50 feet with 2 turns (QC: 4 Type: Manual Wheel 150 feet: 4 Type: Manual PT Plan Treatment/Plan Treatment Plan: Continue Plan of Care Treatment Plan: Bed Mobility, Education, Functional Activity [place], Functional Strength, Gait, Safety, Therapeutic Exercise, Transfers Treatment Duration: Dec 06, 2020 Frequency: At least 5 of 7 days/Wk (IRF) Estimated Hrs Per Day: 1.5 hours per day Patient and/or Family Agrees t: Yes Time/GCodes Time In: 1330 Time Out: 1400 Total Billed Treatment Time: 30 Total Billed Treatment 1 visit EX 14 min FA 16 min JANESSA HERNANDEZ PT November 13, 2020 14:11
[2020-11-13] MEDS: ENOXAPARIN 40 MG/0.4 ML (LOVENOX) SYR SC SCH (17:02)
[2020-11-13 20:33] VITALS: BP 121/57
[2020-11-13] MEDS: MELATONIN 3 MG TABLET PO PRN (20:42)
[2020-11-14] MEDS: CATHETER FLUSH 10 ML SYR IV SCH ×3 (05:54→19:49)
[2020-11-14] MEDS: BACLOFEN 10 MG (LIORESAL) TAB PO SCH ×2 (07:26→19:48)
[2020-11-14] MEDS: ASPIRIN E.C. 81 MG (ECOTRIN) TAB PO SCH (07:26)
[2020-11-14] MEDS: DOCUSATE SODIUM 100 MG (COLACE) CAP PO SCH ×2 (07:26→19:48)
[2020-11-14] MEDS: GABAPENTIN 300 MG (NEURONTIN) CAP PO SCH ×3 (07:26→19:48)
[2020-11-14] MEDS: SENNA W/DOCUSATE (SENOKOT S) TABLET PO SCH ×2 (07:26→19:48)
[2020-11-14] MEDS: amLODIPine 5 MG (NORVASC) TAB PO SCH (07:26)
[2020-11-14] MEDS: polyethylene glycoL POWDER 17 GM (MIRALAX) PACK PO SCH ×2 (07:29→19:02)
[2020-11-14 08:00] VITALS: BP 140/63
--- NOTE | 2020-11-14 09:36 | Occupational Ther Daily Note ---
OT Current Status-Daily Note Subjective Pt laying in bed, agreeable to OT Tx. Pt does not verbalize any pain with tx. ADL-Treatment Therapy Code Descriptions/Definitions Functional [place] Measure: 0=Not Assessed/NA 4=Minimal Assistance 1=Total Assistance 5=Supervision or Setup 2=Maximal Assistance 6=Modified [place] 3=Moderate Assistance 7=Complete IndependenceSCALE: Activities may be completed with or without assistive devices. 6-Lurkgnkmbj-ximgmvl completes the activity by him/herself with no assistance from a helper. 5-Set-up or Clean-up Assistance-helper sets up or cleans up; patient completes activity. [place] assists only prior to or following the activity. 4-Supervision or Touching Assistance-helper provides verbal cues and/or touching/steadying and/or contact guard assistance as patient completes activity. Assistance may be provided throughout the activity or intermittently. 3-Partial/Moderate Assistance-helper does LESS THAN HALF the effort. [place] lifts, holds or supports trunk or limbs, but provides less than half the effort. 2-Substantial/Maximal Assistance-helper does MORE THAN HALF the effort. [place] lifts or holds trunk or limbs and provides more than half the effort. 1-Mhikbsqse-fkrotr does ALL the effort. Patient does none of the effort to complete the activity. Or, the assistance of 2 or more helpers is required for the patient to complete the activity. If activity was not attempted, code reason: 7-Patient Refused. 9-Not Applicable-not attempted and the patient did not perform the activity before the current illness, exacerbation or injury. 10-Not Attempted due to Environmental Limitations-(lack of equipment, weather restraints, etc.). 88-Not Attempted due to Medical Conditions or Safety Concerns. Shower/Bathe Self (QC): 5 (set up) Upper Body Dressing (QC): 5 (set up) Lower Body Dressing (QC): 5 (set up) On/Off Footwear: 5 (set up) Other Treatment Pt laying in bed, transferred supine to sit EOB independently, then donned back brace with set up assist. Pt used FWW to ambulate into bathroom and onto ND where he doffed clothes and completed shower. Pt donned UE clothing at shower, then transferred to bed to don LE clothing and footwear. Pt able to don LE clothing and footwear while maintaining back precautions, no AD. Pt used FWW to perform functional mobility to therapy gym. OT tx with focus on increasing BUE strength and activity tolerance. Pt placed/removed 1" pegs from foam pegboard, 2lb wrist cuff BUEs. Pt then completed ring arc, 2lb wrist cuffs BUEs, completing reaching across midline, x2 sets each hand. Pt used FWW to return to room and transfer to recliner. Post tx, pt seated up in recliner, call light in reach and all needs met. Education OT Patient Education: Correct positioning, Modified ADL techniques, Progress toward Goal/Update tx plan, Purpose of tx/functional activities Teaching Recipient: Patient Teaching Methods: Discussion Response to Teaching: Verbalize Understanding OT Short Term Goals Short Term Goals Time Frame: November 21, 2020 Shower/bathe self: 4 Lower body dressin Putting on/taking off footwear: 5 OT Health Safety Manager Goals Health Safety Manager Goals Time Frame: Dec 05, 2020 Eating (QC): 6 Oral Hygiene (QC): 6 Toileting Hygiene (QC): 6 Shower/Bathe Self (QC): 6 Upper Body Dressing (QC): 6 Lower Body Dressing (QC): 6 On/Off Footwear (QC): 6 Additional Goals: 1-Demonstrate ADL Tasks, 2-Verbalize Understanding, 3- ImproveStrength/Sharon 1=Demonstrate adherence to instructed precautions during ADL tasks. 2=Patient will verbalize/demonstrate understanding of assistive devices/modifications for ADL. 3=Patient will improve strength/tolerance for activity to enable patient to perform ADL's. OT Education/Plan Problem List/Assessment Assessment: Decreased Activ Tolerance, Decreased UE Strength, Impaired I ADL's, Impaired Self-Care Skills Discharge Recommendations Plan/Recommendations: Continue POC Treatment Plan/Plan of Care Patient would benefit from OT for education, treatment and training to promote independence in ADL's, mobility, safety and/or upper extremity function for ADL's. Plan of Care: ADL Retraining, Functional Mobility, Group Exercise/Act as Ind, UE Funct Exercise/Act Treatment Duration: Dec 05, 2020 Frequency: At least 5 of 7 days/Wk (IRF) Estimated Hrs Per Day: 1.5 hours per day Agreement: Yes Rehab Potential: Fair Time/GCodes Start Time: 09:15 Stop Time: 10:45 Total Time Billed (hr/min): 90 Billed Treatment Time 1, ADL 3 (45'), FA 3 (45') DARSHAN ECHOLS OT November 14, 2020 09:36
--- NOTE | 2020-11-14 10:39 | PM&R Progress Note ---
Subjective HPI/CC On Admission Date Seen by Provider: November 14, 2020 Time Seen by Provider: 11:00 Subjective/Events-last exam 11/14/20: Patient is much improved BM 11/12 Moves well Cleared mentation 11/13/20: Doing much better Feels like himself now No complaints BM yesterday 11/12/20: Patient doing pretty well Moving around well Eating and drinking well Good sense of humor Appetite is much improved today Loose stools so held laxatives yesterday but now he is having difficulty and declines laxatives Voiding well Review of Systems General: Fatigue, Malaise Objective Exam Vital Signs Vital Signs Date Time Temp Pulse Resp B/P (MAP) Pulse Ox O2 Delivery O2 Flow Rate FiO2 11/14/20 20:09 37.0 76 18 139/65 (89) 93 Room Air Capillary Refill : General Appearance: No Apparent Distress, WD/WN, Chronically ill HEENT: PERRL/EOMI, Normal ENT Inspection, Pharynx Normal Neck: Full Range of Motion, Normal Inspection, Non Tender, Supple, Carotid Bruit Respiratory: Chest Non Tender, Lungs Clear, Normal Breath Sounds, No Accessory Muscle Use, No Respiratory Distress Cardiovascular: Regular Rate, Rhythm, No Edema, No Gallop, No JVD, No Murmur, Normal Peripheral Pulses Gastrointestinal: Normal Bowel Sounds, No Organomegaly, No Pulsatile Mass, Non Tender, Soft Back: Normal Inspection, No CVA Tenderness, No Vertebral Tenderness Extremity: Normal Capillary Refill, Normal Inspection, Normal Range of Motion, Non Tender, No Calf Tenderness, No Pedal Edema Neurologic/Psychiatric: Alert, Oriented x3, No Motor/Sensory Deficits, Normal Mood/Affect, Disoriented, Motor Weakness Skin: Normal Color, Warm/Dry Lymphatic: No Adenopathy Results/Procedures Lab Patient resulted labs reviewed. FIM Transfers Therapy Code Descriptions/Definitions Functional [place] Measure: 0=Not Assessed/NA 4=Minimal Assistance 1=Total Assistance 5=Supervision or Setup 2=Maximal Assistance 6=Modified [place] 3=Moderate Assistance 7=Complete IndependenceSCALE: Activities may be completed with or without assistive devices. 8-Xjxhgjqkak-hlfruln completes the activity by him/herself with no assistance from a helper. 5-Set-up or Clean-up Assistance-helper sets up or cleans up; patient completes activity. [place] assists only prior to or following the activity. 4-Supervision or Touching Assistance-helper provides verbal cues and/or touching/steadying and/or contact guard assistance as patient completes activity. Assistance may be provided throughout the activity or intermittently. 3-Partial/Moderate Assistance-helper does LESS THAN HALF the effort. [place] lifts, holds or supports trunk or limbs, but provides less than half the effort. 2-Substantial/Maximal Assistance-helper does MORE THAN HALF the effort. [place] lifts or holds trunk or limbs and provides more than half the effort. 7-Kucmestxz-jnaxht does ALL the effort. Patient does none of the effort to complete the activity. Or, the assistance of 2 or more helpers is required for the patient to complete the activity. If activity was not attempted, code reason: 7-Patient Refused. 9-Not Applicable-not attempted and the patient did not perform the activity before the current illness, exacerbation or injury. 10-Not Attempted due to Environmental Limitations-(lack of equipment, weather restraints, etc.). 88-Not Attempted due to Medical Conditions or Safety Concerns. Roll Left to Right (QC): 4 (SBA) Sit to Lying (QC): 4 Sit to Stand (QC): 5 Chair/Hgm-wl-Rgyva Xfer(QC): 4 Car Transfer (QC): 4 (SBA) Gait Training Does the Patient Walk?: Yes Distance: 300' x 2 Walk 10 feet (QC): 5 Walk 50 ft with 2 Turns(QC): 5 Walk 150 ft (QC): 5 Walking 10ft/uneven surface-QC: 3 Gait Assistive Device: FWW Wheelchair Training Does the Pt Use a Wheelchair?: No Distance: 10' Wheel 50 ft with 2 turns (QC): 7 Wheel 150 ft (QC): 7 Type of Wheelchair: N/A Stair Training 1 Step (curb) (QC): 7 (unable to simulate home with patient leaning on concreat rail and side stepping up and down step/patient refuses to attempt steps) 4 Steps (QC): 7 (unable to simulate home with patient leaning on concreat rail and side stepping up and down step/patient refuses to attempt steps) 12 Steps (QC): 9 Balance Picking up an Object (QC): 4 (AD) ADL-Treatment Eating (QC): 6 (Per pt report, able to use utensils and open containers. He reports decreased appetite ) Oral Hygiene (QC): 6 (IND seated at sink) Shower/Bathe Self (QC): 5 (set up) Upper Body Dressing (QC): 5 (set up) Lower Body Dressing (QC): 5 (set up) On/Off Footwear (QC): 5 (set up) Toileting Hygiene (QC): 4 (supervision) Toilet Transfer (QC): 4 (supervision) Assessment/Plan Assessment and Plan Assess & Plan/Chief Complaint Assessment: Slow recovery from lumbar spine surgery complicated with dural leak and NH stay Delirium HTN Bradycardia Back pain JM Urinary frequency Anemia Smoker DM Plan: IRF protocol Monitor pain Fall risk 11/12/20: Improved status Drinking well No falls 11/13/20: Monitor pain Fall risk 11/14/20: Improved status (1) Status 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
--- NOTE | 2020-11-14 11:57 | Physical Therapy Daily Note ---
PT Daily Note-Current Subjective Patient agrees to PT. Rates LBP 5/10. RN issued medication. Pain Numeric Pain Scale: 5-Moderate Pain Location: Lower Location Body Site: Back Pain Description: Chronic Mental Status Patient Orientation: Normal For Age Transfers SCALE: Activities may be completed with or without assistive devices. 4-Awbknaewcn-mvjitkm completes the activity by him/herself with no assistance from a helper. 5-Set-up or Clean-up Assistance-helper sets up or cleans up; patient completes activity. [place] assists only prior to or following the activity. 4-Supervision or Touching Assistance-helper provides verbal cues and/or touching/steadying and/or contact guard assistance as patient completes activity. Assistance may be provided throughout the activity or intermittently. 3-Partial/Moderate Assistance-helper does LESS THAN HALF the effort. [place] lifts, holds or supports trunk or limbs, but provides less than half the effort. 2-Substantial/Maximal Assistance-helper does MORE THAN HALF the effort. [place] lifts or holds trunk or limbs and provides more than half the effort. 6-Naoiwgsfl-goltjn does ALL the effort. Patient does none of the effort to complete the activity. Or, the assistance of 2 or more helpers is required for the patient to complete the activity. If activity was not attempted, code reason: 7-Patient Refused. 9-Not Applicable-not attempted and the patient did not perform the activity before the current illness, exacerbation or injury. 10-Not Attempted due to Environmental Limitations-(lack of equipment, weather restraints, etc.). 88-Not Attempted due to Medical Conditions or Safety Concerns. Sit to Stand (QC): 5 Gait Training Does the Patient Walk?: Yes Distance: 500' x 1/300' x 2/150' x 2 Walk 10 feet (QC): 5 Walk 50 ft with 2 Turns(QC): 5 Walk 150 ft (QC): 5 Gait Assistive Device: FWW trunk and knee flexed posture with FWW Exercises Seated Therapy Exercises: Ankle pumps, Long arc quads, Hip flexion Seated Reps: 15 (2 sets with 2 lb ankle wts) Standin way Ex=Flex, Abd, Ext, Marching, Mini squats Standing Reps: 15 (2 sets with 2lb ankle wts) Assessment Patient requires seated recovery periods between ambulation and exercise sets. Patient highly motivate with progress. Patient instructed to be up ad nikolai during day. Physician notified and nursing aware. PT Product Development Intern Goals Senior Care Goals PT Senior Care Goals Time Frame: Dec 06, 2020 Roll Left & Right (QC): 6 Sit to Lying (QC): 6 Lying-Sitting on Side/Bed(QC): 6 Sit to Stand (QC): 6 Chair/Fpc-dd-Wkget Xfer(QC): 6 Toilet Transfer (QC): 6 Car Transfer (QC): 6 Does the Patient Walk: Yes Walk 10 feet (QC): 6 Walk 50ft with 2 Turns (QC): 6 Walk 150 ft (QC): 6 Walking 10ft on Uneven Surface: 6 1 Step (curb) (QC): 3 4 Steps (QC): 9 (inability to simulate home environment and patient not feeling safe to perform) 12 Steps (QC): 9 Picking up an Object (QC): 6 Does the Pt use WC or Scooter?: Yes Wheel 50 feet with 2 turns (QC: 4 Type: Manual Wheel 150 feet: 4 Type: Manual PT Plan Treatment/Plan Treatment Plan: Continue Plan of Care Treatment Plan: Bed Mobility, Education, Functional Activity Sharon, Functional Strength, Gait, Safety, Therapeutic Exercise, Transfers Treatment Duration: Dec 06, 2020 Frequency: At least 5 of 7 days/Wk (IRF) Estimated Hrs Per Day: 1.5 hours per day Patient and/or Family Agrees t: Yes Safety Risks/Education Patient Education: Safety Issues Teaching Recipient: Patient Teaching Methods: Discussion Response to Teaching: Verbalize Understanding Time/GCodes Time In: 1100 Time Out: 1200 Total Billed Treatment Time: 60 Total Billed Treatment 1 visit EX x 2 28 min FA x 2 32 min JANESSA HERNANDEZ PT November 14, 2020 11:57
--- NOTE | 2020-11-14 14:57 | Physical Therapy Daily Note ---
PT Daily Note-Current Subjective Patient agrees to PT. Mental Status Patient Orientation: Normal For Age Transfers SCALE: Activities may be completed with or without assistive devices. 4-Vyohmeemas-mhhjiwo completes the activity by him/herself with no assistance from a helper. 5-Set-up or Clean-up Assistance-helper sets up or cleans up; patient completes activity. [place] assists only prior to or following the activity. 4-Supervision or Touching Assistance-helper provides verbal cues and/or touching/steadying and/or contact guard assistance as patient completes activity. Assistance may be provided throughout the activity or intermittently. 3-Partial/Moderate Assistance-helper does LESS THAN HALF the effort. [place] lifts, holds or supports trunk or limbs, but provides less than half the effort. 2-Substantial/Maximal Assistance-helper does MORE THAN HALF the effort. [place] lifts or holds trunk or limbs and provides more than half the effort. 9-Ndlptaizk-vymzzo does ALL the effort. Patient does none of the effort to complete the activity. Or, the assistance of 2 or more helpers is required for the patient to complete the activity. If activity was not attempted, code reason: 7-Patient Refused. 9-Not Applicable-not attempted and the patient did not perform the activity befo re the current illness, exacerbation or injury. 10-Not Attempted due to Environmental Limitations-(lack of equipment, weather re straints, etc.). 88-Not Attempted due to Medical Conditions or Safety Concerns. Sit to Lying (QC): 6 Lying to Sitting/Side of Bed(Q: 6 Sit to Stand (QC): 6 Chair/Nst-fs-Eexhi Xfer(QC): 5 Gait Training Does the Patient Walk?: Yes Distance: 150' x 2 Walk 10 feet (QC): 5 Walk 50 ft with 2 Turns(QC): 5 Walk 150 ft (QC): 5 Gait Assistive Device: FWW trunk and bilateral knee flexed posture Exercises Supine Ex: Ankle pumps, Quad Set, Heel Slides, Straight leg raise Supine Reps: 15 NuStep Minutes: 10 NuStep Workload: 4 (to improve mobility and strength) Assessment Patient donns back brace independently. Spouse present for half of treatment. PT Skilled Nursing Goals Skilled Nursing Goals PT Skilled Nursing Goals Time Frame: Dec 06, 2020 Roll Left & Right (QC): 6 Sit to Lying (QC): 6 Lying-Sitting on Side/Bed(QC): 6 Sit to Stand (QC): 6 Chair/Agk-cs-Yyund Xfer(QC): 6 Toilet Transfer (QC): 6 Car Transfer (QC): 6 Does the Patient Walk: Yes Walk 10 feet (QC): 6 Walk 50ft with 2 Turns (QC): 6 Walk 150 ft (QC): 6 Walking 10ft on Uneven Surface: 6 1 Step (curb) (QC): 3 4 Steps (QC): 9 (inability to simulate home environment and patient not feeling safe to perform) 12 Steps (QC): 9 Picking up an Object (QC): 6 Does the Pt use WC or Scooter?: Yes Wheel 50 feet with 2 turns (QC: 4 Type: Manual Wheel 150 feet: 4 Type: Manual PT Plan Treatment/Plan Treatment Plan: Continue Plan of Care Treatment Plan: Bed Mobility, Education, Functional Activity [place], Functional Strength, Gait, Safety, Therapeutic Exercise, Transfers Treatment Duration: Dec 06, 2020 Frequency: At least 5 of 7 days/Wk (IRF) Estimated Hrs Per Day: 1.5 hours per day Patient and/or Family Agrees t: Yes Time/GCodes Time In: 1325 Time Out: 1355 Total Billed Treatment Time: 30 Total Billed Treatment 1 visit EX x 2 30 min JANESSA HERNANDEZ PT November 14, 2020 14:57
[2020-11-14] MEDS: ENOXAPARIN 40 MG/0.4 ML (LOVENOX) SYR SC SCH (18:09)
[2020-11-14 20:09] VITALS: BP 139/65
[2020-11-15] MEDS: CATHETER FLUSH 10 ML SYR IV SCH (05:05)
[2020-11-15 08:00] VITALS: BP 170/77
[2020-11-15] MEDS: amLODIPine 5 MG (NORVASC) TAB PO SCH (08:48)
[2020-11-15] MEDS: ASPIRIN E.C. 81 MG (ECOTRIN) TAB PO SCH (08:48)
[2020-11-15] MEDS: GABAPENTIN 300 MG (NEURONTIN) CAP PO SCH ×3 (08:48→20:42)
[2020-11-15] MEDS: BACLOFEN 10 MG (LIORESAL) TAB PO SCH ×2 (08:48→20:42)
[2020-11-15] MEDS: polyethylene glycoL POWDER 17 GM (MIRALAX) PACK PO SCH ×2 (08:57→20:43)
[2020-11-15] MEDS: DOCUSATE SODIUM 100 MG (COLACE) CAP PO SCH ×2 (08:58→20:42)
[2020-11-15] MEDS: SENNA W/DOCUSATE (SENOKOT S) TABLET PO SCH ×2 (08:59→20:42)
[2020-11-15 09:52] VITALS: BP 136/73
--- NOTE | 2020-11-15 11:58 | Physical Therapy Daily Note ---
PT Daily Note-Current Subjective Pt rates pain 0/10 and pt ready for therapy. Pt reports he has been getting up in room to go to BR. Consulted with nursing pt will be moved to up ad nikolai in room. Mental Status Patient Orientation: Person, Place, Situation Transfers SCALE: Activities may be completed with or without assistive devices. 3-Cxgdtnuehj-pzvbqqn completes the activity by him/herself with no assistance from a helper. 5-Set-up or Clean-up Assistance-helper sets up or cleans up; patient completes activity. [place] assists only prior to or following the activity. 4-Supervision or Touching Assistance-helper provides verbal cues and/or touching/steadying and/or contact guard assistance as patient completes activity. Assistance may be provided throughout the activity or intermittently. 3-Partial/Moderate Assistance-helper does LESS THAN HALF the effort. [place] lifts, holds or supports trunk or limbs, but provides less than half the effort. 2-Substantial/Maximal Assistance-helper does MORE THAN HALF the effort. [place] lifts or holds trunk or limbs and provides more than half the effort. 7-Ikjyqmzlw-ipkudd does ALL the effort. Patient does none of the effort to complete the activity. Or, the assistance of 2 or more helpers is required for the patient to complete the activity. If activity was not attempted, code reason: 7-Patient Refused. 9-Not Applicable-not attempted and the patient did not perform the activity before the current illness, exacerbation or injury. 10-Not Attempted due to Environmental Limitations-(lack of equipment, weather restraints, etc.). 88-Not Attempted due to Medical Conditions or Safety Concerns. Gait Training Gait Assistive Device: FWW Pt donned back brace (I). Pt transfers mod (I). Pt amb with FWW and SBA x 450ft at steady speed. Pt back to chair with call light and all needs met. Assessment Current Status: Good Progress Pt emmett above very well without signs of fatigue. Pt has progressed to mod (I) with all functional mobility. Pt up ad nikolai in room. Pt with call light and all needs met. PT Senior Living Goals Optical Assistant Goals PT Optical Assistant Goals Time Frame: Dec 06, 2020 Roll Left & Right (QC): 6 Sit to Lying (QC): 6 Lying-Sitting on Side/Bed(QC): 6 Sit to Stand (QC): 6 Chair/Bjl-zf-Hprkf Xfer(QC): 6 Toilet Transfer (QC): 6 Car Transfer (QC): 6 Does the Patient Walk: Yes Walk 10 feet (QC): 6 Walk 50ft with 2 Turns (QC): 6 Walk 150 ft (QC): 6 Walking 10ft on Uneven Surface: 6 1 Step (curb) (QC): 3 4 Steps (QC): 9 (inability to simulate home environment and patient not feeling safe to perform) 12 Steps (QC): 9 Picking up an Object (QC): 6 Does the Pt use WC or Scooter?: Yes Wheel 50 feet with 2 turns (QC: 4 Type: Manual Wheel 150 feet: 4 Type: Manual PT Plan Treatment/Plan Treatment Plan: Continue Plan of Care Treatment Plan: Bed Mobility, Education, Functional Activity Sharon, Functional Strength, Gait, Safety, Therapeutic Exercise, Transfers Treatment Duration: Dec 06, 2020 Frequency: At least 5 of 7 days/Wk (IRF) Estimated Hrs Per Day: 1.5 hours per day Patient and/or Family Agrees t: Yes Time/GCodes Time In: 905 Time Out: 920 Total Billed Treatment Time: 15 Total Billed Treatment 1, gait 15' SHASHA WHYTE CPTA November 15, 2020 11:58
--- NOTE | 2020-11-15 12:38 | PM&R Progress Note ---
Subjective HPI/CC On Admission Date Seen by Provider: November 15, 2020 Time Seen by Provider: 12:45 Subjective/Events-last exam 11/15/20: Dramatically improved at bedside and very pleased with his resolution of his delirium No BM for 3 days but he did take Miralax BP varied at times 11/14/20: Patient is much improved BM 11/12 Moves well Cleared mentation 11/13/20: Doing much better Feels like himself now No complaints BM yesterday 11/12/20: Patient doing pretty well Moving around well Eating and drinking well Good sense of humor Appetite is much improved today Loose stools so held laxatives yesterday but now he is having difficulty and declines laxatives Voiding well Review of Systems General: Fatigue, Malaise Musculoskeletal: back pain Objective Exam Vital Signs Vital Signs Date Time Temp Pulse Resp B/P (MAP) Pulse Ox O2 Delivery O2 Flow Rate FiO2 11/15/20 09:54 Room Air 11/15/20 09:52 92 136/73 (94) 11/15/20 08:00 36.6 18 96 Capillary Refill : General Appearance: No Apparent Distress, WD/WN, Chronically ill HEENT: PERRL/EOMI, Normal ENT Inspection, Pharynx Normal Neck: Full Range of Motion, Normal Inspection, Non Tender, Supple, Carotid Bruit Respiratory: Chest Non Tender, Lungs Clear, Normal Breath Sounds, No Accessory Muscle Use, No Respiratory Distress Cardiovascular: Regular Rate, Rhythm, No Edema, No Gallop, No JVD, No Murmur, Normal Peripheral Pulses Gastrointestinal: Normal Bowel Sounds, No Organomegaly, No Pulsatile Mass, Non Tender, Soft Back: Normal Inspection, No CVA Tenderness, No Vertebral Tenderness Extremity: Normal Capillary Refill, Normal Inspection, Normal Range of Motion, Non Tender, No Calf Tenderness, No Pedal Edema Neurologic/Psychiatric: Alert, Oriented x3, No Motor/Sensory Deficits, Normal Mood/Affect, Disoriented, Motor Weakness Skin: Normal Color, Warm/Dry Lymphatic: No Adenopathy Results/Procedures Lab Patient resulted labs reviewed. FIM Transfers Therapy Code Descriptions/Definitions Functional [place] Measure: 0=Not Assessed/NA 4=Minimal Assistance 1=Total Assistance 5=Supervision or Setup 2=Maximal Assistance 6=Modified [place] 3=Moderate Assistance 7=Complete IndependenceSCALE: Activities may be completed with or without assistive devices. 9-Lytshooqbj-dqejqua completes the activity by him/herself with no assistance from a helper. 5-Set-up or Clean-up Assistance-helper sets up or cleans up; patient completes activity. [place] assists only prior to or following the activity. 4-Supervision or Touching Assistance-helper provides verbal cues and/or touching/steadying and/or contact guard assistance as patient completes activity. Assistance may be provided throughout the activity or intermittently. 3-Partial/Moderate Assistance-helper does LESS THAN HALF the effort. [place] lifts, holds or supports trunk or limbs, but provides less than half the effort. 2-Substantial/Maximal Assistance-helper does MORE THAN HALF the effort. [place] lifts or holds trunk or limbs and provides more than half the effort. 3-Srwfiowrs-qecovw does ALL the effort. Patient does none of the effort to com plete the activity. Or, the assistance of 2 or more helpers is required for the patient to complete the activity. If activity was not attempted, code reason: 7-Patient Refused. 9-Not Applicable-not attempted and the patient did not perform the activity before the current illness, exacerbation or injury. 10-Not Attempted due to Environmental Limitations-(lack of equipment, weather restraints, etc.). 88-Not Attempted due to Medical Conditions or Safety Concerns. Roll Left to Right (QC): 4 (SBA) Sit to Lying (QC): 6 Sit to Stand (QC): 6 Chair/Asf-rh-Dunct Xfer(QC): 5 Car Transfer (QC): 4 (SBA) Gait Training Does the Patient Walk?: Yes Distance: 150' x 2 Walk 10 feet (QC): 5 Walk 50 ft with 2 Turns(QC): 5 Walk 150 ft (QC): 5 Walking 10ft/uneven surface-QC: 3 Gait Assistive Device: FWW Wheelchair Training Does the Pt Use a Wheelchair?: No Distance: 10' Wheel 50 ft with 2 turns (QC): 7 Wheel 150 ft (QC): 7 Type of Wheelchair: N/A Stair Training 1 Step (curb) (QC): 7 (unable to simulate home with patient leaning on concreat rail and side stepping up and down step/patient refuses to attempt steps) 4 Steps (QC): 7 (unable to simulate home with patient leaning on concreat rail and side stepping up and down step/patient refuses to attempt steps) 12 Steps (QC): 9 Balance Picking up an Object (QC): 4 (AD) ADL-Treatment Eating (QC): 6 (Per pt report, able to use utensils and open containers. He reports decreased appetite ) Oral Hygiene (QC): 6 (IND seated at sink) Shower/Bathe Self (QC): 5 (set up) Upper Body Dressing (QC): 5 (set up) Lower Body Dressing (QC): 5 (set up) On/Off Footwear (QC): 5 (set up) Toileting Hygiene (QC): 4 (supervision) Toilet Transfer (QC): 4 (supervision) Assessment/Plan Assessment and Plan Assess & Plan/Chief Complaint Assessment: Slow recovery from lumbar spine surgery complicated with dural leak and NH stay Delirium HTN Bradycardia Back pain JM Urinary frequency Anemia Smoker DM Plan: IRF protocol Monitor pain Fall risk 11/12/20: Improved status Drinking well No falls 11/13/20: Monitor pain Fall risk 11/14/20: Improved status 11/15/20: Back to baseline Monitor fluid intake (1) Status post lumbar spine surgery for decompression of spinal cord (2) Delirium (3) Back pain (4) Urinary frequency (5) Hypertension (6) Hyperlipemia (7) Diabetes (8) Smoker (9) Risk for falls (10) Altered mental status Status: Acute (11) Renal failure Status: Acute (12) Dehydration Status: Acute SUMAYA JEAN-BAPTISTE DO November 15, 2020 12:38
[2020-11-15] MEDS: ENOXAPARIN 40 MG/0.4 ML (LOVENOX) SYR SC SCH (17:22)
[2020-11-15 19:17] VITALS: BP 148/70
[2020-11-15] MEDS: ALPRAZolam 0.25 MG (XANAX) TAB PO PRN (20:42)
[2020-11-15] MEDS: MELATONIN 3 MG TABLET PO PRN (20:42)
[2020-11-16 07:21] VITALS: BP 160/66
[2020-11-16] MEDS: amLODIPine 5 MG (NORVASC) TAB PO SCH (08:54)
[2020-11-16] MEDS: GABAPENTIN 300 MG (NEURONTIN) CAP PO SCH ×3 (08:54→20:16)
[2020-11-16] MEDS: ASPIRIN E.C. 81 MG (ECOTRIN) TAB PO SCH (08:54)
[2020-11-16] MEDS: BACLOFEN 10 MG (LIORESAL) TAB PO SCH ×2 (08:54→20:16)
[2020-11-16] MEDS: DOCUSATE SODIUM 100 MG (COLACE) CAP PO SCH ×2 (08:57→20:16)
[2020-11-16] MEDS: polyethylene glycoL POWDER 17 GM (MIRALAX) PACK PO SCH ×2 (08:57→20:19)
[2020-11-16] MEDS: SENNA W/DOCUSATE (SENOKOT S) TABLET PO SCH ×2 (08:57→20:16)
[2020-11-16 10:35] VITALS: BP 167/75
--- NOTE | 2020-11-16 12:05 | PM&R Progress Note ---
Subjective HPI/CC On Admission Date Seen by Provider: November 16, 2020 Time Seen by Provider: 12:15 Subjective/Events-last exam 11/16/20: Patient doing well Increased PO intake Labs due tomorrow Wants DC tomorrow Suppository has resulted in small BM's Walking in halls Insomnia is a chronic ongoing issue 11/15/20: Dramatically improved at bedside and very pleased with his resolution of his delirium No BM for 3 days but he did take Miralax BP varied at times 11/14/20: Patient is much improved BM 11/12 Moves well Cleared mentation 11/13/20: Doing much better Feels like himself now No complaints BM yesterday 11/12/20: Patient doing pretty well Moving around well Eating and drinking well Good sense of humor Appetite is much improved today Loose stools so held laxatives yesterday but now he is having difficulty and declines laxatives Voiding well Review of Systems General: Fatigue, Malaise Musculoskeletal: back pain Objective Exam Vital Signs Vital Signs Date Time Temp Pulse Resp B/P (MAP) Pulse Ox O2 Delivery O2 Flow Rate FiO2 11/16/20 19:07 37.6 82 18 166/76 (106) 96 Room Air Capillary Refill : General Appearance: No Apparent Distress, WD/WN, Chronically ill HEENT: PERRL/EOMI, Normal ENT Inspection, Pharynx Normal Neck: Full Range of Motion, Normal Inspection, Non Tender, Supple, Carotid Bruit Respiratory: Chest Non Tender, Lungs Clear, Normal Breath Sounds, No Accessory Muscle Use, No Respiratory Distress Cardiovascular: Regular Rate, Rhythm, No Edema, No Gallop, No JVD, No Murmur, Normal Peripheral Pulses Gastrointestinal: Normal Bowel Sounds, No Organomegaly, No Pulsatile Mass, Non Tender, Soft Back: Normal Inspection, No CVA Tenderness, No Vertebral Tenderness Extremity: Normal Capillary Refill, Normal Inspection, Normal Range of Motion, Non Tender, No Calf Tenderness, No Pedal Edema Neurologic/Psychiatric: Alert, Oriented x3, No Motor/Sensory Deficits, Normal Mood/Affect, Disoriented, Motor Weakness Skin: Normal Color, Warm/Dry Lymphatic: No Adenopathy Results/Procedures Lab Patient resulted labs reviewed. FIM Transfers Therapy Code Descriptions/Definitions Functional [place] Measure: 0=Not Assessed/NA 4=Minimal Assistance 1=Total Assistance 5=Supervision or Setup 2=Maximal Assistance 6=Modified [place] 3=Moderate Assistance 7=Complete IndependenceSCALE: Activities may be completed with or without assistive devices. 7-Llfmzpchrh-ctncpyo completes the activity by him/herself with no assistance from a helper. 5-Set-up or Clean-up Assistance-helper sets up or cleans up; patient completes activity. [place] assists only prior to or following the activity. 4-Supervision or Touching Assistance-helper provides verbal cues and/or touching/steadying and/or contact guard assistance as patient completes activity. Assistance may be provided throughout the activity or intermittently. 3-Partial/Moderate Assistance-helper does LESS THAN HALF the effort. [place] lifts, holds or supports trunk or limbs, but provides less than half the effort. 2-Substantial/Maximal Assistance-helper does MORE THAN HALF the effort. [place] lifts or holds trunk or limbs and provides more than half the effort. 4-Kdgcsqytv-ljiopc does ALL the effort. Patient does none of the effort to complete the activity. Or, the assistance of 2 or more helpers is required for the patient to complete the activity. If activity was not attempted, code reason: 7-Patient Refused. 9-Not Applicable-not attempted and the patient did not perform the activity before the current illness, exacerbation or injury. 10-Not Attempted due to Environmental Limitations-(lack of equipment, weather restraints, etc.). 88-Not Attempted due to Medical Conditions or Safety Concerns. Roll Left to Right (QC): 4 (SBA) Sit to Lying (QC): 6 Sit to Stand (QC): 6 Chair/Stf-jk-Qrdqg Xfer(QC): 5 Car Transfer (QC): 4 (SBA) Gait Training Does the Patient Walk?: Yes Distance: 150' x 2 Walk 10 feet (QC): 5 Walk 50 ft with 2 Turns(QC): 5 Walk 150 ft (QC): 5 Walking 10ft/uneven surface-QC: 3 Gait Assistive Device: FWW Wheelchair Training Does the Pt Use a Wheelchair?: No Distance: 10' Wheel 50 ft with 2 turns (QC): 7 Wheel 150 ft (QC): 7 Type of Wheelchair: N/A Stair Training 1 Step (curb) (QC): 7 (unable to simulate home with patient leaning on concreat rail and side stepping up and down step/patient refuses to attempt steps) 4 Steps (QC): 7 (unable to simulate home with patient leaning on concreat rail and side stepping up and down step/patient refuses to attempt steps) 12 Steps (QC): 9 Balance Picking up an Object (QC): 4 (AD) ADL-Treatment Eating (QC): 6 (Per pt report, able to use utensils and open containers. He reports decreased appetite ) Oral Hygiene (QC): 6 (IND seated at sink) Shower/Bathe Self (QC): 5 (set up) Upper Body Dressing (QC): 5 (set up) Lower Body Dressing (QC): 5 (set up) On/Off Footwear (QC): 5 (set up) Toileting Hygiene (QC): 4 (supervision) Toilet Transfer (QC): 4 (supervision) Assessment/Plan Assessment and Plan Assess & Plan/Chief Complaint Assessment: Slow recovery from lumbar spine surgery complicated with dural leak and NH stay Delirium HTN Bradycardia Back pain JM Urinary frequency Anemia Smoker DM Plan: IRF protocol Monitor pain Fall risk 11/12/20: Improved status Drinking well No falls 11/13/20: Monitor pain Fall risk 11/14/20: Improved status 11/15/20: Back to baseline Monitor fluid intake 11/16/20: Monitor closely Labs due tomorrow DC Tuesday (1) Status post lumbar spine surgery for decompression of spinal cord (2) Delirium (3) Back pain (4) Urinary frequency (5) Hypertension (6) Hyperlipemia (7) Diabetes (8) Smoker (9) Risk for falls (10) Altered mental status Status: Acute (11) Renal failure Status: Acute (12) Dehydration Status: Acute SUMAYA JEAN-BAPTISTE DO November 16, 2020 12:05
[2020-11-16] MEDS: ENOXAPARIN 40 MG/0.4 ML (LOVENOX) SYR SC SCH (17:21)
[2020-11-16 19:07] VITALS: BP 166/76
[2020-11-16] MEDS: ALPRAZolam 0.25 MG (XANAX) TAB PO PRN (20:16)
[2020-11-16] MEDS: MELATONIN 3 MG TABLET PO PRN (20:16)
[2020-11-17 06:07] LABS: BASOPHILS # (AUTO) 0.1 10^3/uL (0.0-0.1); BASOPHILS % (AUTO) 1 % (0-10); EOSINOPHILS # (AUTO) 0.8 10^3/uL (0.0-0.3); EOSINOPHILS % (AUTO) 8 % (0-10); HEMATOCRIT 31 % (40-54); HEMOGLOBIN 9.7 g/dL (13.3-17.7); LYMPHOCYTES # (AUTO) 2.7 10^3/uL (1.0-4.0); LYMPHOCYTES % (AUTO) 27 % (12-44); MEAN CORPUSCULAR HEMOGLOBIN 31 pg (25-34); MEAN CORPUSCULAR HGB CONC 32 g/dL (32-36); MEAN CORPUSCULAR VOLUME 97 fL (80-99); MEAN PLATELET VOLUME 9.3 fL (9.0-12.2); MONOCYTES # (AUTO) 0.6 10^3/uL (0.0-1.0); MONOCYTES % (AUTO) 6 % (0-12); NEUTROPHILS # (AUTO) 5.9 10^3/uL (1.8-7.8); NEUTROPHILS % (AUTO) 58 % (42-75); PLATELET COUNT 313 10^3/uL (130-400); WHITE BLOOD COUNT 10.2 10^3/uL (4.3-11.0)
[2020-11-17 06:21] LABS: ALBUMIN 3.3 GM/DL (3.2-4.5); POTASSIUM 4.8 MMOL/L (3.6-5.0)
[2020-11-17 06:23] LABS: CALCIUM 9.2 MG/DL (8.5-10.1)
[2020-11-17 06:24] LABS: TOTAL PROTEIN 6.4 GM/DL (6.4-8.2)
[2020-11-17 06:26] LABS: BILIRUBIN,TOTAL 0.4 MG/DL (0.1-1.0)
[2020-11-17 06:27] LABS: CREATININE SERUM 1.34 MG/DL (0.60-1.30)
[2020-11-17] MEDS ORDERED: BACL20TA PO (07:14)
[2020-11-17] MEDS ORDERED: ACHD5005 PO (07:14)
--- NOTE | 2020-11-17 07:16 | D/C HH Face to Face Order ---
D/C Face to Face Orders Reconcile Patient Problems Problems Reviewed?: Yes Instructions for Patient Home Health Patient Instructions/FollowUp: PCP Dr Sherman in 1 week Physician to follow Patient: Self Discharge Diet for Home: No Restrictions Patient Problems: Debility Back surgery Patient Data-Allergies,Ht & Wt Patient Allergies: Coded Allergies: No Known Drug Allergies (Unverified , 10/16/13) Height (Feet): 6 Height (Inches): 0.00 Weight (Pounds): 280 Weight (Ounces): 0.0 Home Health Need/Face to Face Date of Face to Face: November 17, 2020 Clinical Findings: Generalized weakness and fatigue, Instability, Muscle weakness, Unsteady gait I have seen Pt [id number]: Yes Discharged To: Home Diagnosis/Conditions: Debility Back surgery Patient is Homebound due to: CognItive deficits, Muscle weakness, Pain w/ambulation Homebound Status Due to the above stated illness, injury or surgical procedure (medical condition or diagnosis) and associated clinical findings, the patient is homebound because of his/her inability to leave home except with aid of a luque pportive device and/or person AND leaving the home requires a considerable and taxing effort or is medically contraindicated. Pt req the following assistanc: Walker Home Health Nursing Orders Home Health Services Order: Nursing Services, Advertising Inserter-Evaluate & Treat, Physical Therapy-Evaluate & Treat Certify Stmt I certify that this patient is under my care and that I, a nurse practitioner or a physician; a field technical assistant working with me, had a face to face encounter that - meets the physician face to face encounter requirements with this patient as dated. SUMAYA JEAN-BAPTISTE DO November 17, 2020 07:16
--- NOTE | 2020-11-17 07:17 | Discharge Summary ---
Diagnosis/Chief Complaint Date of Admission November 11, 2020 at 09:30 Date of Discharge Discharge Date: November 17, 2020 Discharge Diagnosis Assessment: Slow recovery from lumbar spine surgery complicated with dural leak and NH stay Delirium HTN Bradycardia Back pain JM Urinary frequency Anemia Smoker DM Plan: IRF protocol Monitor pain Fall risk 11/12/20: Improved status Drinking well No falls 11/13/20: Monitor pain Fall risk 11/14/20: Improved status 11/15/20: Back to baseline Monitor fluid intake 11/16/20: Monitor closely Labs due tomorrow DC Tuesday (1) Status post lumbar spine surgery for decompression of spinal cord (2) Delirium (3) Back pain (4) Urinary frequency (5) Hypertension (6) Hyperlipemia (7) Diabetes (8) Smoker (9) Risk for falls (10) Altered mental status Status: Acute (11) Renal failure Status: Acute (12) Dehydration Status: Acute Discharge Summary Discharge Physical Examination Allergies: Coded Allergies: No Known Drug Allergies (Unverified , 10/16/13) Vitals & I&Os Vital Signs Date Time Temp Pulse Resp B/P (MAP) Pulse Ox O2 Delivery O2 Flow Rate FiO2 11/17/20 12:10 36.0 68 16 144/68 99 Room Air General Appearance: Alert, Oriented X3, Cooperative Respiratory: Clear to Auscultation Cardiovascular: Regular Rate Neuro: Normal Gait, Normal Speech, Strength at 5/5 X4 Ext Psych/Mental Status: Mental Status NL Hospital Course Was the Problem List Reviewed?: Yes Hospital course: Pt had a standard hospital course for seven days after he was admitted from [facility] for delirium and acute kidney injury. He was able to improve enough with therapies and his delirium cleared along with the acute kidney injury resolving with creatinine of 1.3 after multiple meds were held including [place] inhibitor and Spironolactone and he overall did very well. Cardiology was consulted for bradycardia and permissive HTN did occur at times. Overall he did very well and was ready for discharge. Labs (last 24 hrs) Laboratory Tests 11/12/20 05:19: White Blood Count 10.3, Red Blood Count 3.01L, Hemoglobin 9.2L, Hematocrit 30L, Mean Corpuscular Volume 98, Mean Corpuscular Hemoglobin 31, Mean Corpuscular Hemoglobin Concent 31L, Red Cell Distribution Width 16.1H, Platelet Count 321, Mean Platelet Volume 9.2, Immature Granulocyte % (Auto) 1, Neutrophils (%) (Auto) 60, Lymphocytes (%) (Auto) 27, Monocytes (%) (Auto) 6, Eosinophils (%) (Auto) 6, Basophils (%) (Auto) 1, Neutrophils # (Auto) 6.1, Lymphocytes # (Auto) 2.8, Monocytes # (Auto) 0.7, Eosinophils # (Auto) 0.6H, Basophils # (Auto) 0.1, Immature Granulocyte # (Auto) 0.1, Sodium Level 139, Potassium Level 4.0, Chloride Level 105, Carbon Dioxide Level 24, Anion Gap 10, Blood Urea Nitrogen 20H, Creatinine 1.24, Estimat Glomerular Filtration Rate 57, BUN/Creatinine Ratio 16, Glucose Level 116H, Calcium Level 9.0, Corrected Calcium 9.7, Iron Level 32L, Total Bilirubin 0.7, Aspartate Amino Transf (AST/SGOT) 15, Alanine Aminotransferase (ALT/SGPT) 12, Alkaline Phosphatase 107, Total Protein 6.0L, Albumin 3.1L 11/17/20 05:55: White Blood Count 10.2, Red Blood Count 3.17L, Hemoglobin 9.7L, Hematocrit 31L, Mean Corpuscular Volume 97, Mean Corpuscular Hemoglobin 31, Mean Corpuscular Hemoglobin Concent 32, Red Cell Distribution Width 15.8H, Platelet Count 313, Mean Platelet Volume 9.3, Immature Granulocyte % (Auto) 1, Neutrophils (%) (Auto ) 58, Lymphocytes (%) (Auto) 27, Monocytes (%) (Auto) 6, Eosinophils (%) (Auto) 8, Basophils (%) (Auto) 1, Neutrophils # (Auto) 5.9, Lymphocytes # (Auto) 2.7, Monocytes # (Auto) 0.6, Eosinophils # (Auto) 0.8H, Basophils # (Auto) 0.1, I mmature Granulocyte # (Auto) 0.1, Sodium Level 138, Potassium Level 4.8, Chloride Level 105, Carbon Dioxide Level 25, Anion Gap 8, Blood Urea Nitrogen 22H, Creatinine 1.34H, Estimat Glomerular Filtration Rate 52, BUN/Creatinine Ratio 16, Glucose Level 135H, Calcium Level 9.2, Corrected Calcium 9.8, Total Bilirubin 0.4, Aspartate Amino Transf (AST/SGOT) 13, Alanine Aminotransferase (ALT/SGPT) 11, Alkaline Phosphatase 113, Total Protein 6.4, Albumin 3.3 Pending Labs Laboratory Tests 11/12/20 05:19: White Blood Count 10.3, Red Blood Count 3.01, Hemoglobin 9.2, Hematocrit 30, Mean Corpuscular Volume 98, Mean Corpuscular Hemoglobin 31, Mean Corpuscular Hemoglobin Concent 31, Red Cell Distribution Width 16.1, Platelet Count 321, Mean Platelet Volume 9.2, Immature Granulocyte % (Auto) 1, Neutrophils (%) (Auto) 60, Lymphocytes (%) (Auto) 27, Monocytes (%) (Auto) 6, Eosinophils (%) (Auto) 6, Basophils (%) (Auto) 1, Neutrophils # (Auto) 6.1, Lymphocytes # (Auto) 2.8, Monocytes # (Auto) 0.7, Eosinophils # (Auto) 0.6, Basophils # (Auto) 0.1, Immature Granulocyte # (Auto) 0.1, Sodium Level 139, Potassium Level 4.0, Chloride Level 105, Carbon Dioxide Level 24, Anion Gap 10, Blood Urea Nitrogen 20, Creatinine 1.24, Estimat Glomerular Filtration Rate 57, BUN/Creatinine Ratio 16, Glucose Level 116, Calcium Level 9.0, Corrected Calcium 9.7, Iron Level 32, Total Bilirubin 0.7, Aspartate Amino Transf (AST/SGOT) 15, Alanine Ami notransferase (ALT/SGPT) 12, Alkaline Phosphatase 107, Total Protein 6.0, Albumin 3.1 11/17/20 05:55: White Blood Count 10.2, Red Blood Count 3.17, Hemoglobin 9.7, Hematocrit 31, Mean Corpuscular Volume 97, Mean Corpuscular Hemoglobin 31, Mean Corpuscular Hemoglobin Concent 32, Red Cell Distribution Width 15.8, Platelet Count 313, Mean Platelet Volume 9.3, Immature Granulocyte % (Auto) 1, Neutrophils (%) (Auto) 58, Lymphocytes (%) (Auto) 27, Monocytes (%) (Auto) 6, Eosinophils (%) (Auto) 8, Basophils (%) (Auto) 1, Neutrophils # (Auto) 5.9, Lymphocytes # (Auto) 2.7, Monocytes # (Auto) 0.6, Eosinophils # (Auto) 0.8, Basophils # (Auto) 0.1, Immature Granulocyte # (Auto) 0.1, Sodium Level 138, Potassium Level 4.8, Chloride Level 105, Carbon Dioxide Level 25, Anion Gap 8, Blood Urea Nitrogen 22, Creatinine 1.34, Estimat Glomerular Filtration Rate 52, BUN/Creatinine Ratio 16, Glucose Level 135, Calcium Level 9.2, Corrected Calcium 9.8, Total Bilirubin 0.4, Aspartate Amino Transf (AST/SGOT) 13, Alanine Aminotransferase (ALT/SGPT) 11, Alkaline Phosphatase 113, Total Protein 6.4, Albumin 3.3 Discharge Home Medications: Active Scripts Active Hydrocodone-Acetamin 5-325 mg (Hydrocodone/Acetaminophen) 1 Each Tablet 1 Tab PO Q4H PRN Baclofen 20 Mg Tablet 20 Mg PO BID Reported Metformin HCl 1,000 Mg Tablet 1,000 Mg PO BID Amlodipine Besylate 5 Mg Tablet 10 Mg PO DAILY Sildenafil Citrate 100 Mg Tablet 100 Mg PO UD PRN Aspirin EC (Aspirin) 81 Mg Tablet.dr 81 Mg PO DAILY Neurontin (Gabapentin) 300 Mg Capsule 300 Mg PO TID Atorvastatin Calcium 80 Mg Tablet 80 Mg PO HS Instructions to patient/family Please see electronic discharge instructions given to patient. Diagnosis/Problems Diagnosis/Problems (1) Status post lumbar spine surgery for decompression of spinal cord (2) Delirium (3) Back pain (4) Urinary frequency (5) Hypertension (6) Hyperlipemia (7) Diabetes (8) Smoker (9) Risk for falls (10) Altered mental status Status: Acute (11) Renal failure Status: Acute (12) Dehydration Status: Acute SUMAYA JEAN-BAPTISTE DO November 17, 2020 07:17
[2020-11-17] MEDS: ASPIRIN E.C. 81 MG (ECOTRIN) TAB PO SCH (07:59)
[2020-11-17 08:00] VITALS: BP 162/75
[2020-11-17] MEDS: DOCUSATE SODIUM 100 MG (COLACE) CAP PO SCH (08:00)
[2020-11-17] MEDS: GABAPENTIN 300 MG (NEURONTIN) CAP PO SCH ×2 (08:00→12:09)
[2020-11-17] MEDS: polyethylene glycoL POWDER 17 GM (MIRALAX) PACK PO SCH (08:00)
[2020-11-17] MEDS: BACLOFEN 10 MG (LIORESAL) TAB PO SCH (08:00)
[2020-11-17] MEDS: SENNA W/DOCUSATE (SENOKOT S) TABLET PO SCH (08:00)
[2020-11-17] MEDS: amLODIPine 5 MG (NORVASC) TAB PO SCH (08:00)
--- NOTE | 2020-11-17 09:03 | Cardiology Progress Note ---
Subjective Date Seen by Provider: November 17, 2020 Time Seen by Provider: 08:50 Subjective/Events-last exam Pt appears comfortable sitting up in bed. Says he has been able to increase his exercise tolerance over the weekend and has asked for extra time walking and riding the bike with PT. HTN has returned over the weekend with systolic pressures in the 160s. Will increase norvasc from 5 to 10 and monitor. Will f/u if pressures remain high. No new cardiac complaints. Review of Systems General: No Chills, No Night Sweats HEENT: No Head Aches, No Visual Changes Pulmonary: No Dyspnea, No Cough Cardiovascular: No: Chest Pain, Palpitations Gastrointestinal: No: Nausea, Vomiting Genitourinary: No Dysuria, No Frequency Musculoskeletal: back pain; No: neck pain Neurological: No: Weakness, Numbness Objective-Cardiology Exam Last Set of Vital Signs Vital Signs 11/17/20 11/17/20 08:00 09:00 Temp 36.0 Pulse 65 Resp 16 B/P (MAP) 162/75 (104) Pulse Ox 99 O2 Delivery Room Air Capillary Refill : General: Alert, Oriented X3, Cooperative HEENT: Atraumatic, PERRLA Neck: Supple, No JVD, No Thyromegaly Lungs: Clear to Auscultation, Normal Air Movement Heart: Regular Rate, Normal S1, Normal S2, No Murmurs Abdomen: Normal Bowel Sounds, Soft, No Tenderness, No Hepatosplenomegaly, No Masses Extremities: No Clubbing, No Cyanosis Skin: No Rashes, No Significant Lesion Neuro: Normal Speech Psych/Mental Status: Mental Status NL, Mood NL Results Lab Laboratory Tests 11/17/20 05:55 A/P-Cardiology Admission Diagnosis AMS HTN HLP DM Assessment/Plan AMS secondary to ARF and dehydration, probably hypotensive episode, better at this time. Continue to monitor Sinus bradycardia, probably secondary to medication, heart rate improved. ARF, dehydration, improving, continue to monitor renal function. Hypertension, restarted on Norvasc. Blood pressure elevated over the weekend, will increase norvasc from 5 to 10mg and monitor. We will try to avoid RAMO inhibitor and/or ARB due to hyperkalemia, avoid beta-blockers due to bradycardia HLP- maintained on statin, continue to monitor DM- management per PCP Hyperkalemia, improved. Patient reported that he was taking potassium citrate as an outpatient, recommend stopping it Obesity Recent back surgery approx [address] Suh Multiple risk factors for underlying CAD, reports he underwent recent stress test and echo done at [facility] in just prior to back surgery. Supervisory-Addendum Brief Verification & Attestation Participated in pt care: history, MDM, physical Personally performed: exam, history, MDM, supervision of care Care discussed with: Medical Student Procedures: n/a Results interpretation: Verified all documentation Verification and Attestation of Medical Student E/M Service A medical student performed and documented this service in my presence. I reviewed and verified all information documented by the medical student and made modifications to such information, when appropriate. I personally performed the physical exam and medical decision making. Neymar Rodriguez, November 17, 2020,10:31 ALICIA ARCOS MED STUDENT November 17, 2020 9:03 am NEYMAR RODRIGUEZ MD November 17, 2020 10:31 am
--- NOTE | 2020-11-17 09:42 | Occupational Ther Daily Note ---
OT Current Status-Daily Note Subjective Pt agreeable to OT Tx with focus on ADLs. States he feels ready to d/c. Mental Status/Objective Patient Orientation: Person, Place, Time, Situation ADL-Treatment Therapy Code Descriptions/Definitions Functional [place] Measure: 0=Not Assessed/NA 4=Minimal Assistance 1=Total Assistance 5=Supervision or Setup 2=Maximal Assistance 6=Modified [place] 3=Moderate Assistance 7=Complete IndependenceSCALE: Activities may be completed with or without assistive devices. 2-Vqsputdhdb-terkcle completes the activity by him/herself with no assistance from a helper. 5-Set-up or Clean-up Assistance-helper sets up or cleans up; patient completes activity. [place] assists only prior to or following the activity. 4-Supervision or Touching Assistance-helper provides verbal cues and/or touching/steadying and/or contact guard assistance as patient completes activity. Assistance may be provided throughout the activity or intermittently. 3-Partial/Moderate Assistance-helper does LESS THAN HALF the effort. [place] lifts, holds or supports trunk or limbs, but provides less than half the effort. 2-Substantial/Maximal Assistance-helper does MORE THAN HALF the effort. [place] lifts or holds trunk or limbs and provides more than half the effort. 8-Mzynyiotd-fqimvv does ALL the effort. Patient does none of the effort to complete the activity. Or, the assistance of 2 or more helpers is required for the patient to complete the activity. If activity was not attempted, code reason: 7-Patient Refused. 9-Not Applicable-not attempted and the patient did not perform the activity before the current illness, exacerbation or injury. 10-Not Attempted due to Environmental Limitations-(lack of equipment, weather restraints, etc.). 88-Not Attempted due to Medical Conditions or Safety Concerns. Eating (QC): 6 (per pt report and clinical judgemetn) Oral Hygiene (QC): 6 (IND standing at sink.) Shower/Bathe Self (QC): 5 (set up of shower area. 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 Transferred supine to sit EOB, then used FWW to gather clothing from room. He transferred into bathroom to complete toileting and showering. Pt donned shirt and back brace on SC, then transferred to EOB to don pants and socks. Pt used FWW to stand at sink to complete oral care, then transferred to recliner. Post tx, pt seated in recliner, call light in reach and all needs met. Education OT Patient Education: Correct positioning, Modified ADL techniques, Progress toward Goal/Update tx plan, Purpose of tx/functional activities Teaching Recipient: Patient Teaching Methods: Discussion Response to Teaching: Verbalize Understanding OT Short Term Goals Short Term Goals Time Frame: November 21, 2020 Shower/bathe self: 4 Lower body dressin Putting on/taking off footwear: 5 OT Half-Way Goals Half-Way Goals Time Frame: Dec 05, 2020 Eating (QC): 6 (met) Oral Hygiene (QC): 6 (met) Toileting Hygiene (QC): 6 (met) Shower/Bathe Self (QC): 6 (not met, set up) Upper Body Dressing (QC): 6 (met) Lower Body Dressing (QC): 6 (met) On/Off Footwear (QC): 6 (met) Additional Goals: 1-Demonstrate ADL Tasks, 2-Verbalize Understanding, 3- ImproveStrength/Sharon 1=Demonstrate adherence to instructed precautions during ADL tasks. 2=Patient will verbalize/demonstrate understanding of assistive devices/modifications for ADL. 3=Patient will improve strength/tolerance for activity to enable patient to perform ADL's. OT Education/Plan Problem List/Assessment Assessment: Decreased Activ Tolerance Discharge Recommendations Plan/Recommendations: Continue POC Treatment Plan/Plan of Care Patient would benefit from OT for education, treatment and training to promote independence in ADL's, mobility, safety and/or upper extremity function for ADL's. Plan of Care: ADL Retraining, Functional Mobility, Group Exercise/Act as Ind, UE Funct Exercise/Act Treatment Duration: Dec 05, 2020 Frequency: At least 5 of 7 days/Wk (IRF) Estimated Hrs Per Day: 1.5 hours per day Agreement: Yes Rehab Potential: Fair Time/GCodes Start Time: 09:15 Stop Time: 09:45 Total Time Billed (hr/min): 30 Billed Treatment Time 1, ADL 2 DARSHAN ECHOLS OT November 17, 2020 09:42
--- NOTE | 2020-11-17 11:20 | Physical Therapy Daily Note ---
PT Daily Note-Current Subjective Patient is very excited to return to home on this date. Pain Numeric Pain Scale: 0-No Pain Location: No Pain Reported Mental Status Patient Orientation: Normal For Age Transfers SCALE: Activities may be completed with or without assistive devices. 9-Tfxivnwmdf-tcqbfbz completes the activity by him/herself with no assistance from a helper. 5-Set-up or Clean-up Assistance-helper sets up or cleans up; patient completes activity. [place] assists only prior to or following the activity. 4-Supervision or Touching Assistance-helper provides verbal cues and/or touching/steadying and/or contact guard assistance as patient completes activity. Assistance may be provided throughout the activity or intermittently. 3-Partial/Moderate Assistance-helper does LESS THAN HALF the effort. [place] lifts, holds or supports trunk or limbs, but provides less than half the effort. 2-Substantial/Maximal Assistance-helper does MORE THAN HALF the effort. [place] lifts or holds trunk or limbs and provides more than half the effort. 8-Elwlzdgqr-hmtogt does ALL the effort. Patient does none of the effort to complete the activity. Or, the assistance of 2 or more helpers is required for the patient to complete the activity. If activity was not attempted, code reason: 7-Patient Refused. 9-Not Applicable-not attempted and the patient did not perform the activity before the current illness, exacerbation or injury. 10-Not Attempted due to Environmental Limitations-(lack of equipment, weather restraints, etc.). 88-Not Attempted due to Medical Conditions or Safety Concerns. Roll Left & Right (QC): 6 Sit to Lying (QC): 6 Lying to Sitting/Side of Bed(Q: 6 Sit to Stand (QC): 6 Chair/Tgw-bw-Qpugh Xfer(QC): 6 Toilet Transfer (QC): 6 Car Transfer (QC): 6 Gait Training Does the Patient Walk?: Yes Distance: 200' x 2 Walk 10 feet (QC): 6 Walk 50 ft with 2 Turns(QC): 6 Walk 150 ft (QC): 6 Walking 10ft/uneven surface-QC: 6 Gait Assistive Device: FWW safe and functional with no deviation Wheelchair Training Does the Pt Use a Wheelchair?: No Wheel 50 ft with 2 turns (QC): 9 Wheel 150 ft (QC): 9 Patient did not require w/c during hospital stay. Stair Training Stair Training: Handrails/: 1 handrail #of Steps: 4 1 Step (curb) (QC): 6 4 Steps (QC): 6 12 Steps (QC): 9 Stairs: Pattern: Step to side step ascending and descending Balance Picking up an Object (QC): 6 Exercises NuStep Minutes: 10 NuStep Workload: 4 Assessment Patient to dismiss to home with spouse on this date with all goals addressed and attained. Patient, upon initial evaluation, required minimal to CGA assist with all mobility for safety. Patient progressed with treatment plan and is currently at independent LOF with all gross motor skills safely. PT Group Home Goals Group Home Goals PT Group Home Goals Time Frame: Dec 06, 2020 Roll Left & Right (QC): 6 (met 11/17/20) Sit to Lying (QC): 6 (met 11/17/20) Lying-Sitting on Side/Bed(QC): 6 (met 11/17/20) Sit to Stand (QC): 6 (met 11/17/20) Chair/Scc-rf-Ziqgt Xfer(QC): 6 (met 11/17/20) Toilet Transfer (QC): 6 (met 11/17/20) Car Transfer (QC): 6 (met 11/17/20) Does the Patient Walk: Yes Walk 10 feet (QC): 6 (met 11/17/20) Walk 50ft with 2 Turns (QC): 6 (met 11/17/20) Walk 150 ft (QC): 6 (met 11/17/20) Walking 10ft on Uneven Surface: 6 (met 11/17/20) 1 Step (curb) (QC): 3 (met 11/17/20) 4 Steps (QC): 9 (inability to simulate home environment and patient not feeling safe to perform) 12 Steps (QC): 9 (met 11/17/20) Picking up an Object (QC): 6 (met 11/17/20) Does the Pt use WC or Scooter?: Yes Wheel 50 feet with 2 turns (QC: 4 (met 11/17/20) Type: Manual Wheel 150 feet: 4 (met 11/17/20) Type: Manual patient did not require w/c for hospital use and reports will not use at home due to improve LOF PT Plan Treatment/Plan Treatment Plan: Discontinue PT, goals met Treatment Plan: Bed Mobility, Education, Functional Activity Sharon, Functional Strength, Gait, Safety, Therapeutic Exercise, Transfers Treatment Duration: Dec 06, 2020 Frequency: At least 5 of 7 days/Wk (IRF) Estimated Hrs Per Day: 1.5 hours per day Patient and/or Family Agrees t: Yes Time/GCodes Time In: 1050 Time Out: 1113 Total Billed Treatment Time: 23 Total Billed Treatment 1 visit EX 10 min FA 13 min JANESSA HERNANDEZ PT November 17, 2020 11:20
--- NOTE | 2020-11-17 11:23 | Therapy Team Discharge Summary ---
Therapy Discharge Summary Discharge Recommendations Date of Discharge Physical Therapy Patient to dismiss to home with spouse on this date with all goals addressed and attained. Patient, upon initial evaluation, required minimal to CGA assist with all mobility for safety. Patient progressed with treatment plan and is currently at independent LOF with all gross motor skills safely. Occupational Therapy Decreased Activ Tolerance PT Slunk Skin Curer Goals Half-Way Goals PT Half-Way Goals Time Frame: Dec 06, 2020 Roll Left to Right (QC): 6 (met 11/17/20) Sit to Lying (QC): 6 (met 11/17/20) Lying-Sitting on Side/Bed(QC): 6 (met 11/17/20) Sit to Stand (QC): 6 (met 11/17/20) Chair/Lbw-il-Rwkkt Xfer(QC): 6 (met 11/17/20) Car Transfer (QC): 6 (met 11/17/20) Does the Patient Walk: Yes Walk 10 feet (QC): 6 (met 11/17/20) Walk 10ft-Uneven Surface(QC): 6 (met 11/17/20) Walk 50ft with 2 Turns (QC): 6 (met 11/17/20) Walk 150 ft (QC): 6 (met 11/17/20) Does the Pt use WC or Scooter?: Yes Wheel 50 feet with 2 turns (QC: 4 (met 11/17/20) 1 Step (curb) (QC): 3 (met 11/17/20) 4 Steps (QC): 9 (inability to simulate home environment and patient not feeling safe to perform) 12 Steps (QC): 9 (met 11/17/20) Picking up an Object (QC): 6 (met 11/17/20) OT Slunk Skin Curer Goals Half-Way Goals Time Frame: Dec 05, 2020 Eating (QC): 6 (met) Oral Hygiene (QC): 6 (met) Shower/Bathe Self (QC): 6 (not met, set up) Upper Body Dressing (QC): 6 (met) Lower Body Dressing (QC): 6 (met) On/Off Footwear (QC): 6 (met) Toileting Hygiene (QC): 6 (met) Toilet/Commode Transfer (QC): 6 (met 11/17/20) Additional Goals: 1-Demonstrate ADL Tasks, 2-Verbalize Understanding, 3- ImproveStrength/Sharon 1=Demonstrate adherence to instructed precautions during ADL tasks. 2=Patient will verbalize/demonstrate understanding of assistive devices/modifications for ADL. 3=Patient will improve strength/tolerance for activity to enable patient to perform ADL's. JANESSA HERNANDEZ PT November 17, 2020 11:23
[2020-11-17 12:10] VITALS: BP 144/68
--- NOTE | 2020-11-17 13:02 | Therapy Team Discharge Summary ---
Therapy Discharge Summary Discharge Recommendations Date of Discharge Occupational Therapy Pt admitted to ARU s/p TLIF/PSIF. At PLOF, pt was independent with ADLs and functional mobility using a walker. Upon initial evaluation, pt was independent with eating, required CGA oral care, min A showering, set up upper body dressing, max A lower body dressing, total assist footwear and min A toileting. OT tx with focus on increasing BUE strength and activity tolerance as well as increasing safety and independence with ADLs to maximize LOF for safe return home. At discharge, pt required set up assistance with showering, and was independent with all other ADLs. Pt made good progress towards goals, meeting IND level with eating, oral care, UE/LE dressing, footwear and toileting. Pt to discharge from facility on this date, d/c from OT at this time. Decreased Activ Tolerance PT Senior Living Goals Rn Social Work Goals PT Rn Social Work Goals Time Frame: Dec 06, 2020 Roll Left to Right (QC): 6 (met 11/17/20) Sit to Lying (QC): 6 (met 11/17/20) Lying-Sitting on Side/Bed(QC): 6 (met 11/17/20) Sit to Stand (QC): 6 (met 11/17/20) Chair/Loz-cd-Dnifa Xfer(QC): 6 (met 11/17/20) Car Transfer (QC): 6 (met 11/17/20) Does the Patient Walk: Yes Walk 10 feet (QC): 6 (met 11/17/20) Walk 10ft-Uneven Surface(QC): 6 (met 11/17/20) Walk 50ft with 2 Turns (QC): 6 (met 11/17/20) Walk 150 ft (QC): 6 (met 11/17/20) Does the Pt use WC or Scooter?: Yes Wheel 50 feet with 2 turns (QC: 4 (met 11/17/20) 1 Step (curb) (QC): 3 (met 11/17/20) 4 Steps (QC): 9 (inability to simulate home environment and patient not feeling safe to perform) 12 Steps (QC): 9 (met 11/17/20) Picking up an Object (QC): 6 (met 11/17/20) OT Senior Living Goals Rn Social Work Goals Time Frame: Dec 05, 2020 Eating (QC): 6 (met) Oral Hygiene (QC): 6 (met) Shower/Bathe Self (QC): 6 (not met, set up) Upper Body Dressing (QC): 6 (met) Lower Body Dressing (QC): 6 (met) On/Off Footwear (QC): 6 (met) Toileting Hygiene (QC): 6 (met) Toilet/Commode Transfer (QC): 6 (met 11/17/20) Additional Goals: 1-Demonstrate ADL Tasks, 2-Verbalize Understanding, 3-ImproveStrength/Sharon 1=Demonstrate adherence to instructed precautions during ADL tasks. 2=Patient will verbalize/demonstrate understanding of assistive devices/modifications for ADL. 3=Patient will improve strength/tolerance for activity to enable patient to perform ADL's. DARSHAN ECHOLS OT November 17, 2020 13:02
[2020-11-18] MEDS ORDERED: amLODIPine 5 MG (NORVASC) TAB PO SCH (09:00)
--- NOTE | 2020-11-19 09:39 | Physician Query Clarification ---
PQ-Further Specificity Admission/Discharge Admission Date: November 11, 2020 at 09:30 Discharge Date: November 17, 2020 at 12:10 Dr. Hernandez, The medical record reflects the following clinical scenario: History/Risk Factors: s/p spinal surgery Clinical Findings: no Motor/Sensory Deficits, motor weakness generalized Treatment: rehab Question: Can you further specify the medical condition that warranted the spinal surgery per the clinical indicators above? Please document a response in the Progress Notes or Discharge Summary. 1. Lumbar spinal stenosis 2. Lumbar spondylosis 3. both lumbar spinal stenosis and lumbar spondylosis 4. Other, with explanation of the clinical findings. 5. Clinically undetermined, no explanation for the clinical findings. PHYSICIAN RESPONSE Can you specify per above: Other, explanation/clinical finding (3) Please remember a lack of response to the above will prompt a phone page by CDI/Coding staff. In responding to this query, please exercise your independent professional judgment. The purpose of this communication is to more accurately reflect the complexity of your patients condition. The fact that a question is asked does not imply that any particular answer is desired or expected. Thank you for your timely response to this clarification. Requestors name: Santa THIS PHYSICIAN QUERY FORM IS A PERMANENT PART OF THE MEDICAL RECORD SANTA CARRASCO November 19, 2020 09:39 SUMAYA HERNANDEZ DO November 19, 2020 11:15
== END 2020-11-17 12:10 | disposition home health service (06) | DRG 560 ==
PROVIDERS: ADMIT Internal Medicine; ATTEND Internal Medicine
DX: Z47.89 Encounter for other orthopedic aftercare (principal); N17.9 Acute kidney failure, unspecified; Z68.41 Body mass index [BMI] 40.0-44.9, adult; Z98.1 Arthrodesis status; R41.0 Disorientation, unspecified; E87.5 Hyperkalemia; R35.0 Frequency of micturition; R00.1 Bradycardia, unspecified; D64.9 Anemia, unspecified; I10 Essential (primary) hypertension; E78.00 Pure hypercholesterolemia, unspecified; E78.5 Hyperlipidemia, unspecified; E11.9 Type 2 diabetes mellitus without complications; E66.9 Obesity, unspecified; G47.00 Insomnia, unspecified; Z87.891 Personal history of nicotine dependence; Z91.81 History of falling; Z79.84 Long term (current) use of oral hypoglycemic drugs; Z79.82 Long term (current) use of aspirin
CPT/HCPCS: 36415; 80053; 83540; 85025

== ENCOUNTER → 2020-12-16 | Outpatient (CLI) | payer MEDICARE, OTHER ==
[~2020-12-16] MED LIST changes: -ACETAMINOPHEN 325 MG TABLET PO PRN; -BISACODYL 10 MG SUPP (DULCOLAX) PR PRN; -CALCIUM CARBONATE 500 MG (TUMS) TAB.CHEW PO PRN; -DOCUSATE SODIUM 100 MG (COLACE) CAP PO PRN; -FLEET ENEMA ADULT 1 EA BTL PR PRN; -LACTULOSE SYRUP 10GM/15ML (ENULOSE) 30ML UDC PO PRN; -LOPERAMIDE 2 MG (IMODIUM) TABLET PO PRN; -ONDANSETRON 4 MG (ZOFRAN) ORAL DISSOLVE TAB PO PRN; -diphenhydrAMINE 25 MG TAB (BENADRYL) PO PRN; -guaiFENesin/CODEINE (ROBITUSSIN AC) 10ML UDC PO PRN
--- NOTE | 2020-12-16 10:55 | Diagnostic Imaging Report ---
PROCEDURE: CT lumbar spine without contrast. TECHNIQUE: Multiple contiguous axial images were obtained through the lumbar spine without the use of intravenous contrast. Sagittal and coronal reformations were then performed. Auto Exposure Controls were utilized during the CT exam to meet ALARA standards for radiation dose reduction. INDICATION: Back pain. COMPARISON: CT myelogram of 09/05/2020. FINDINGS: Since prior examination, there has been discectomy with posterior lumbar interbody fusion at L3-L4 and L4-L5 utilizing expandable interbody cage devices. The interbody cages are well-positioned without subsidence of the endplates. There is no incorporation of the interbody bone graft material at this time. Instrumented posterolateral fusion of L3-S1 has also been performed with paired transpedicular screws and rods. No fracture of the screws or rods. Additionally, there are no features of loosening of the fixation screws. No fracture within the vertebral bodies. No sacral insufficiency fracture. Mild degenerative arthritis of the SI joints. Partially imaged epidural spinal stimulator with leads entering the posterior epidural space of the spinal canal at T12-L1. The terminal aspects of the leads are not included in this field of view. There are no sites of high-grade spinal canal narrowing. There is good posterior decompression of the spinal canal at L3, L4 and L4, L5 via laminectomies. Foraminotomies also been performed on the right at L4 and L3. Moderate neuroforaminal narrowing on the right at L4-L5 and mild narrowing at L3-L4 are similar to prior exam. IMPRESSION: 1. Expected postoperative changes from discectomy and posterior lumbar interbody fusion at L3-L4 and L4-L5. No hardware complication. 2. There appears to be adequate spinal canal decompression at L3-L5 via laminectomies and foraminotomies. Dictated by: Dictated on workstation # [id number]
== END ==
LOC: RAD FS 08:39
PROVIDERS: ATTEND Physician Assistant
DX: Z09 Encounter for follow-up examination after completed treatment for conditions other than malignant neoplasm (principal); T84.84XA Pain due to internal orthopedic prosthetic devices, implants and grafts, initial encounter; M54.5 Low back pain
CPT/HCPCS: 72131

== ENCOUNTER → 2021-11-17 | Outpatient (CLI) | payer MEDICARE, OTHER ==
--- NOTE | 2021-11-17 09:40 | Diagnostic Imaging Report ---
INDICATION: DOUBLE VISION, HALLUCINATION TECHNIQUE: Routine non contrast-enhanced axial images were obtained from the skull base to the vertex. Auto Exposure Controls were utilized during the CT exam to meet ALARA standards for radiation dose reduction COMPARISON: 11/08/2020 FINDINGS: The ventricles and cortical sulci are diffusely prominent, compatible with age-related volume loss. There are confluent areas of abnormal, low attenuation in the periventricular white matter. This is consistent with chronic small vessel ischemic changes. There is no midline shift or mass-effect. No acute intra-axial hemorrhage is seen. There are no abnormal areas of increased or decreased density to suggest acute hemorrhage or edema. No extra-axial masses or collections are present. The bony calvarium is intact. The visualized paranasal sinuses are unremarkable. The mastoid air cells are clear. Large amount of debris is seen within the left external auditory canal. IMPRESSION: 1. No acute intracranial abnormality. No CT evidence of mass, acute infarct or intracranial hemorrhage. 2. Chronic small vessel ischemic changes in deep white matter. Dictated by: Dictated on workstation # [id number]
== END ==
LOC: RAD FS 09:07
PROVIDERS: ATTEND Family Medicine
DX: H53.2 Diplopia (principal); R44.3 Hallucinations, unspecified; R90.82 White matter disease, unspecified
CPT/HCPCS: 70450

== ENCOUNTER 2021-12-06 12:24 | Emergency (ER) | payer MEDICARE, OTHER ==
[~2021-12-06] VITALS: Ht 182.8 cm; Wt 134.9 kg
--- NOTE | 2021-12-06 13:18 | ED General ---
General Chief Complaint: General Problems/Pain Stated Complaint: GEN WEAKNESS Nursing Triage Note: Patient presents per [facility] reporting "feels like having a heart attack and faint". EMS reports patient denies CP or SOA but states he was too weak to get up to answer door earlier when a visitor arrived. Pt with recent pacemaker placement and discharged from [facility] yesterday. EMS report FAST exam is negative, blood sugar 134. Pt reports symptom resolved before they arrived. History of Present Illness Date Seen by Provider: Dec 06, 2021 Time Seen by Provider: 12:18 Initial Comments 76-year-old male with PMH of pacemaker insertion at day before yesterday and was discharged from care yesterday, with chronic mobility difficul ties/narcolepsy with and ordered EMG pending/arrhythmia, is brought in by EMS today with complaints of patient being in deep sleep today morning when he heard the doorbell ring, and patient jumped out of bed suddenly and felt weak need and a little disoriented for a few seconds. Denies chest pain, shortness of breath, abdominal pain, diarrhea, fever, neck pain or neck stiffness, headache, dizziness, visual disturbances or hearing disturbances. Patient was concerned that he might be having a heart attack and called EMS to come to the ER. Allergies and Home Medications Allergies Coded Allergies: No Known Drug Allergies (Unverified , 10/16/13) Patient Home Medication List Home Medication List Reviewed: Yes Amlodipine Besylate (Amlodipine Besylate) 5 Mg Tablet, 10 MG PO DAILY, (Reported) Entered as Reported by: SHILPI OTT on 11/11/20 1228 Aspirin (Aspirin EC) 81 Mg Tablet.dr, 81 MG PO DAILY, (Reported) Entered as Reported by: SHILPI OTT on 11/10/20 1551 Atorvastatin Calcium (Atorvastatin Calcium) 80 Mg Tablet, 80 MG PO HS, (Reported) Entered as Reported by: JOSELYN SANCHEZ on 10/14/19 1617 Baclofen (Baclofen) 20 Mg Tablet, 20 MG PO BID Prescribed by: SUMAYA JEAN-BAPTISTE on 11/17/20 0714 Gabapentin (Neurontin) 300 Mg Capsule, 300 MG PO TID, (Reported) Entered as Reported by: SHILPI OTT on 11/10/20 1551 Hydrocodone/Acetaminophen (Hydrocodone-Acetamin 5-325 mg) 1 Each Tablet, 1 TAB PO Q4H PRN for PAIN-MODERATE (5-7) Prescribed by: SUMAYA JEAN-BAPTISTE on 11/17/20 0715 Metformin HCl (Metformin HCl) 1,000 Mg Tablet, 1,000 MG PO BID, (Reported) Entered as Reported by: SHILPI OTT on 11/11/20 1228 Sildenafil Citrate (Sildenafil Citrate) 100 Mg Tablet, 100 MG PO UD PRN for PRN, (Reported) Entered as Reported by: SHILPI OTT on 11/11/20 1228 Review of Systems Review of Systems Constitutional: weakness EENTM: no symptoms reported Respiratory: no symptoms reported Cardiovascular: no symptoms reported Gastrointestinal: no symptoms reported Genitourinary: no symptoms reported Musculoskeletal: muscle stiffness Skin: no symptoms reported Psychiatric/Neurological: Other (weak news) Hematologic/Lymphatic: No Symptoms Reported Immunological/Allergic: no symptoms reported Past Ayvxagh-Outvlw-Ethgbf Hx Patient Social History Smoking Status: Unknown if Ever Smoked Substance use?: Unable to obtain Alcohol Use?: Yes Alcohol Frequency: Once in a while Pt feels they are or have been: No Immunizations Up To Date First/Initial COVID19 Vaccinat: 2020 Second COVID19 Vaccination Arie: September Third COVID19 Vaccination Date: 2020 Seasonal Allergies Seasonal Allergies: No Past Medical History Surgery/Hospitalization HX: Pacemaker 12/05/21 @ [facility] Surgeries: Yes (Nerve stimulator in back, back surgery x2) Appendectomy, Gallbladder, Orthopedic, Tonsillectomy Respiratory: No Cardiac: Yes (HYPERCHOLESTEROLEMIA) High Cholesterol, Hypertension Neurological: No Reproductive Disorders: No Sexually Transmitted Disease: No Genitourinary: Yes Kidney Stones, Renal Failure Gastrointestinal: Yes (COLON POLYPS, DIVERTICULITIS) Musculoskeletal: Yes (ARTHROPATHY, OSTEOARTHRITIS OF RIGHT KNEE) Degenerate Disk Disease, Arthritis, Chronic Back Pain Endocrine: Yes Diabetes, Non-Insulin dep HEENT: No Cancer: No Psychosocial: No Integumentary: No Blood Disorders: No Physical Exam Vital Signs Vital Signs - First Documented Capillary Refill : Less Than 3 Seconds Height, Weight, BMI Height: 6'0.00" Weight: 280lbs. 0.0oz. 127.610021ua; 40.00 BMI Method: General Appearance: Anxious HEENT: PERRL/EOMI, Moist Mucous Membranes Neck: Full Range of Motion, Normal Inspection, Non Tender, Supple Respiratory: Chest Non Tender, Lungs Clear, Normal Breath Sounds Cardiovascular: Regular Rate, Rhythm (pacemaker working), No Edema Gastrointestinal: Normal Bowel Sounds, Non Tender, Soft Back: Normal Inspection, No CVA Tenderness Extremity: Normal Capillary Refill, Normal Range of Motion Neurologic/Psychiatric: Alert, Oriented x3, No Motor/Sensory Deficits, Normal Mood/Affect Skin: Normal Color Progress/Results/Core Measures Suspected Sepsis SIRS Temperature: Pulse: Respiratory Rate: Laboratory Tests 12/06/21 12:45: White Blood Count 10.2 Blood Pressure / Mean: Laboratory Tests 12/06/21 12:45: Creatinine 1.64H, INR Comment 1.2, Platelet Count 196, Total Bilirubin 0.6 Results/Orders Lab Results Laboratory Tests Test 12/06/21 12:45 12/06/21 14:20 Range/Units White Blood Count 10.2 4.3-11.0 10^3/uL Red Blood Count 3.72 L 4.30-5.52 10^6/uL Hemoglobin 11.2 L 13.3-17.7 g/dL Hematocrit 35 L 40-54 % Mean Corpuscular Volume 95 80-99 fL Mean Corpuscular Hemoglobin 30 25-34 pg Mean Corpuscular Hemoglobin Concent 32 32-36 g/dL Red Cell Distribution Width 15.9 H 10.0-14.5 % Platelet Count 196 130-400 10^3/uL Mean Platelet Volume 10.1 9.0-12.2 fL Immature Granulocyte % (Auto) 0 % Neutrophils (%) (Auto) 67 42-75 % Lymphocytes (%) (Auto) 22 12-44 % Monocytes (%) (Auto) 7 0-12 % Eosinophils (%) (Auto) 3 0-10 % Basophils (%) (Auto) 0 0-10 % Neutrophils # (Auto) 6.9 1.8-7.8 10^3/uL Lymphocytes # (Auto) 2.3 1.0-4.0 10^3/uL Monocytes # (Auto) 0.8 0.0-1.0 10^3/uL Eosinophils # (Auto) 0.3 0.0-0.3 10^3/uL Basophils # (Auto) 0.0 0.0-0.1 10^3/uL Immature Granulocyte # (Auto) 0.0 0.0-0.1 10^3/uL Prothrombin Time 15.9 H 12.2-14.7 SEC INR Comment 1.2 0.8-1.4 Activated Partial Thromboplast Time 40 H 24-35 SEC D-Dimer 0.73 H 0.00-0.49 UG/ML Sodium Level 139 135-145 MMOL/L Potassium Level 4.3 3.6-5.0 MMOL/L Chloride Level 105 98-107 MMOL/L Carbon Dioxide Level 23 21-32 MMOL/L Anion Gap 11 5-14 MMOL/L Blood Urea Nitrogen 43 H 7-18 MG/DL Creatinine 1.64 H 0.60-1.30 MG/DL Estimat Glomerular Filtration Rate 43 BUN/Creatinine Ratio 26 Glucose Level 153 H 70-105 MG/DL Calcium Level 9.5 8.5-10.1 MG/DL Corrected Calcium 9.8 8.5-10.1 MG/DL Magnesium Level 2.2 1.6-2.4 MG/DL Total Bilirubin 0.6 0.1-1.0 MG/DL Aspartate Amino Transf (AST/SGOT) 15 5-34 U/L Alanine Aminotransferase (ALT/SGPT) 8 0-55 U/L Alkaline Phosphatase 94 40-136 U/L Troponin I < 0.30 <0.30 NG/ML Pro-B-Type Natriuretic Peptide 331.4 H <75.0 PG/ML Total Protein 6.7 6.4-8.2 GM/DL Albumin 3.6 3.2-4.5 GM/DL Urine Color YELLOW Urine Clarity CLEAR Urine pH 5.5 5-9 Urine Specific Dumas 1.025 H 1.016-1.022 Urine Protein TRACE H NEGATIVE Urine Glucose (UA) NEGATIVE NEGATIVE Urine Ketones NEGATIVE NEGATIVE Urine Nitrite NEGATIVE NEGATIVE Urine Bilirubin NEGATIVE NEGATIVE Urine Urobilinogen 0.2 < = 1.0 MG/DL Urine Leukocyte Esterase NEGATIVE NEGATIVE Urine RBC (Auto) NEGATIVE NEGATIVE Urine RBC 2-5 H /HPF Urine WBC 2-5 /HPF Urine Renal Epithelial Cells 2-5 /HPF Urine Crystals NONE /LPF Urine Bacteria FEW H /HPF Urine Casts PRESENT /LPF Urine Coarse Granular Casts 2-5 H /LPF Urine Mucus MODERATE H /LPF Urine Culture Indicated YES My Orders Orders - MARISOL ANGELO MD Cbc With Automated Diff (12/06/21 13:12) Comprehensive Metabolic Panel (12/06/21 13:12) Magnesium (12/06/21 13:12) Ua Culture If Indicated (12/06/21 13:12) Troponin I Fs (12/06/21 13:12) Chest 1 View Ap/Pa Only (12/06/21 13:13) Ct Head Wo (12/06/21 13:14) Ekg Tracing (12/06/21 13:14) Fibrin Degradation Products (12/06/21 13:14) Protime With Inr (12/06/21 13:14) Partial Thromboplastin Time (12/06/21 13:14) Probnp Fs (12/06/21 13:16) Ct Angio Chest W (12/06/21 14:04) Iohexol Injection (Omnipaque 350 Mg/Ml 1 (12/06/21 14:30) Received Contrast (Hold Metformin- Contr (12/06/21 14:30) Sodium Chloride Flush (Catheter Flush Sy (12/06/21 14:30) Ns (Ivpb) (Sodium Chloride 0.9% Ivpb Bag (12/06/21 14:30) Urine Culture (12/06/21 14:20) Medications Given in ED Current Medications Medications Dose Ordered Sig/Zhao Route Start Time Stop Time Status Last Admin Dose Admin Iohexol 100 ml ONCE ONCE IV 12/06/21 14:30 12/06/21 14:31 DC 12/06/21 14:51 100 ML Sodium Chloride 10 ml NEEDED PRN IV 12/06/21 14:30 12/06/21 14:51 10 ML Sodium Chloride 100 ml ONCE ONCE IV 12/06/21 14:30 12/06/21 14:31 DC 12/06/21 14:51 100 ML Vital Signs/I&O 12/06/21 12:24 B/P (MAP) Capillary Refill : Less Than 3 Seconds Progress Note : Progress Note 1. NEAR SYNCOPE: VASOVAGAL - CT HEAD: unremarkable - CXR: unremarkable - Troponin undetectable - EKG: nonischemic, paced - Labs unremarkable - Pacemaker working - Discussed labs and imaging and pt scenario with [facility] hospitlaist, Dr Tay, and recommendation is for pt to follow up with felt hat flanging operator since pt's work-up is negative, and pacemaker is functioning appropriately. - will dicharge pt. Possibly vasovagal in nature -The patient was seen in the ED, and treated appropriately to presentation at a specific point in time. Patient is informed that there is a possibility that disease and illness can evolve and change in acuity rapidly or slowly after patient is discharged from the ER. Precautionary advice given to the patient for immediate return to ER if symptoms worsen or do not resolve, and to seek emergency care sooner rather than later. Pt also advised on the importance of PCP follow up and compliance with management and follow up plan with PCP and/or specialist, as this is part of the management plan. Pt verbally expressed understanding. 2. ELEVATED D-DIMER: - D-dimer is 0.73 - CTA CHEST: no PE Diagnostic Imaging Diagonstic Imaging: Xray, CT Plain Films/CT/US/NM/MRI: chest, abdomen, head Comments [facility] [place], [place] NAME: LEIA LAYTON [facility] REC#: [id number] PT STATUS: REG ER : 1945 PHYSICIAN: MARISOL ANGELO MD ADMIT DATE: 12/06/21/ER FS Draft Date of Exam:12/06/21 CT ANGIO CHEST W EXAMINATION: CT angiography of the chest. TECHNIQUE: Contrast enhanced thin section helical images were obtained through the chest with intravenous contrast timed for the optimal opacification of the arterial structures per CTA protocol. Post-processing, reconstructions and interpretation of angiographic images of the vessels was performed. 3D MIP reconstructions were performed and reviewed. All CT scans use one or more of the following dose optimizing techniques: automated exposure control, MA and/or KvP adjustment based on patient size and exam type or iterative reconstruction. HISTORY: Elevated D-dimer. COMPARISON: None available. FINDINGS: There is no pulmonary embolism There is no edema or pneumonia. No pleural effusion. No pneumothorax. No suspicious nodules. There is no axillary or supraclavicular lymphadenopathy. There is no mediastinal lymphadenopathy. There is left-sided pacemaker. Gas adjacent to the pocket may be related to recent placement. Heart size is normal. There are mild coronary artery calcifications. No pericardial effusion. Aorta is normal in caliber. Limited views of the upper abdomen show absent gallbladder. There are no suspicious osseus lesions. IMPRESSION: No pulmonary embolism. Dictated on workstation # [id number] Dict: 12/06/21 1457 Trans: 12/06/21 1509 PJE [id number] Interpreted by: CHEYANNE ROBLES MD Electronically signed by: [facility] [place], [place] NAME: LEIA LAYTON [facility] REC#: [id number] PT STATUS: REG ER : 1945 PHYSICIAN: MARISOL ANGELO MD ADMIT DATE: 12/06/21/ER FS Draft Date of Exam:12/06/21 CHEST 1 VIEW AP/PA ONLY INDICATION: Near syncope, one day post pacemaker placement. TECHNIQUE: Single view chest 1:33 PM. CORRELATION STUDY: 10/14/2019 FINDINGS: Left-sided pacemaker has been placed since prior. Cardiac enlargement generally stable. Component of mild vascular appears perhaps slightly less severe from prior. Lung james overall relatively clear. No definitive infiltrate. No significant effusion or pneumothorax. Thoracic spine stimulator lead present. IMPRESSION: 1. Left-sided pacemaker has been placed. Severity of cardiac enlargement unchanged. Vasculature is mildly prominent but overall perhaps less severe from prior Dictated on workstation # [id number] Dict: 12/06/21 1340 Trans: 12/06/21 1343 CVB [id number] Interpreted by: FANNIE DUTTON DO Electronically signed by: CardiaLen [facility] [place], [place] NAME: LEIA LAYTON [facility] REC#: [id number] PT STATUS: REG ER : 1945 PHYSICIAN: MARISOL ANGELO MD ADMIT DATE: 12/06/21/ER FS Draft Date of Exam:12/06/21 CT HEAD WO PROCEDURE: CT head without contrast. TECHNIQUE: Multiple contiguous axial images were obtained through the brain without the use of intravenous contrast. Auto Exposure Controls were utilized during the CT exam to meet ALARA standards for radiation dose reduction. INDICATION: 76-year-old male, near syncope, generalized weakness. CORRELATION STUDY: 11/17/2021 FINDINGS: There is marked motion artifact particularly at the skull base. This significantly limits assessment through this portion of the anatomy. Given this, the ventricles and sulci demonstrate a generalized atrophic changes with prominence of ventricles and sulci to be present. No definitive regional area of decreased attenuation to suggest new edema. No midline shift or mass effect. No findings to suggest acute intracranial hemorrhage. Prominent ossification along the interhemispheric falx. Sinuses are generally clear and bony calvarium appearing intact. IMPRESSION: 1. Compromised imaging with significant motion artifact. Given limitations, no suggestion for acute intracranial abnormality. Dictated on workstation # [id number] Dict: 12/06/21 1337 Trans: 12/06/21 1350 CV [id number] Interpreted by: FANNIE DUTTON DO Electronically signed by: Departure Impression Primary Impression: Near syncope Additional Impressions: Presence of normal functioning cardiac pacemaker Vasovagal episode Disposition: HOME, SELF-CARE Condition: Improved Departure-Patient Inst. Referrals: COREY JI MD (PCP/Family) Primary Care Physician Patient Instructions: Near Fainting (DC), Vasovagal Response (DC), Pacemakers Add. Discharge Instructions: - Follow-up with felt hat flanging operator within 3 to 7 days. Call cardiology office tomorrow morning to make appointment -Follow-up with PCP within the next 3 to 5 days as well -Keep adequately hydrated -Return to ER if symptoms worsen or recur. All discharge instructions reviewed with patient and/or family. Voiced understanding. MARISOL ANGELO MD Dec 06, 2021 13:18
[2021-12-06 13:19] LABS: BUN/CREATININE RATIO 26; CARBON DIOXIDE 23 MMOL/L (21-32); CHLORIDE 105 MMOL/L (98-107); CREATININE SERUM 1.64 MG/DL (0.60-1.30); FIBRIN DEGRADATION PRODUCTS 0.73 UG/ML (0.00-0.49); GFR ESTIMATED 43; INR 1.2 (0.8-1.4); POTASSIUM 4.3 MMOL/L (3.6-5.0); PROTHROMBIN TIME PATIENT 15.9 SEC (12.2-14.7); SODIUM 139 MMOL/L (135-145)
[2021-12-06 13:20] LABS: ALANINE AMINOTRANSFERASE 8 U/L (0-55); ALBUMIN 3.6 GM/DL (3.2-4.5); ALKALINE PHOSPHATASE 94 U/L (40-136); BASOPHILS % (AUTO) 0 % (0-10); BILIRUBIN,TOTAL 0.6 MG/DL (0.1-1.0); CALCIUM 9.5 MG/DL (8.5-10.1); EOSINOPHILS # (AUTO) 0.3 10^3/uL (0.0-0.3); EOSINOPHILS % (AUTO) 3 % (0-10); GLUCOSE 153 MG/DL (70-105); HEMATOCRIT 35 % (40-54); HEMOGLOBIN 11.2 g/dL (13.3-17.7); LYMPHOCYTES # (AUTO) 2.3 10^3/uL (1.0-4.0); LYMPHOCYTES % (AUTO) 22 % (12-44); MAGNESIUM 2.2 MG/DL (1.6-2.4); MEAN CORPUSCULAR HEMOGLOBIN 30 pg (25-34); MEAN CORPUSCULAR HGB CONC 32 g/dL (32-36); MEAN CORPUSCULAR VOLUME 95 fL (80-99); MEAN PLATELET VOLUME 10.1 fL (9.0-12.2); MONOCYTES # (AUTO) 0.8 10^3/uL (0.0-1.0); MONOCYTES % (AUTO) 7 % (0-12); NEUTROPHILS # (AUTO) 6.9 10^3/uL (1.8-7.8); NEUTROPHILS % (AUTO) 67 % (42-75); PLATELET COUNT 196 10^3/uL (130-400); TOTAL PROTEIN 6.7 GM/DL (6.4-8.2); WHITE BLOOD COUNT 10.2 10^3/uL (4.3-11.0)
--- NOTE | 2021-12-06 13:43 | Diagnostic Imaging Report ---
INDICATION: Near syncope, one day post pacemaker placement. TECHNIQUE: Single view chest 1:33 PM. CORRELATION STUDY: 10/14/2019 FINDINGS: Left-sided pacemaker has been placed since prior. Cardiac enlargement generally stable. Component of mild vascular appears perhaps slightly less severe from prior. Lung james overall relatively clear. No definitive infiltrate. No significant effusion or pneumothorax. Thoracic spine stimulator lead present. IMPRESSION: 1. Left-sided pacemaker has been placed. Severity of cardiac enlargement unchanged. Vasculature is mildly prominent but overall perhaps less severe from prior Dictated by: Dictated on workstation # [id number]
--- NOTE | 2021-12-06 13:51 | Diagnostic Imaging Report ---
PROCEDURE: CT head without contrast. TECHNIQUE: Multiple contiguous axial images were obtained through the brain without the use of intravenous contrast. Auto Exposure Controls were utilized during the CT exam to meet ALARA standards for radiation dose reduction. INDICATION: 76-year-old male, near syncope, generalized weakness. CORRELATION STUDY: 11/17/2021 FINDINGS: There is marked motion artifact particularly at the skull base. This significantly limits assessment through this portion of the anatomy. Given this, the ventricles and sulci demonstrate a generalized atrophic changes with prominence of ventricles and sulci to be present. No definitive regional area of decreased attenuation to suggest new edema. No midline shift or mass effect. No findings to suggest acute intracranial hemorrhage. Prominent ossification along the interhemispheric falx. Sinuses are generally clear and bony calvarium appearing intact. IMPRESSION: 1. Compromised imaging with significant motion artifact. Given limitations, no suggestion for acute intracranial abnormality. Dictated by: Dictated on workstation # [id number]
[2021-12-06 14:27] LABS: BILIRUBIN,URINE NEGATIVE (NEGATIVE); CLARITY,URINE CLEAR; COLOR,URINE YELLOW; GLUCOSE, URINE (UA) NEGATIVE (NEGATIVE); KETONES,URINE NEGATIVE (NEGATIVE); LEUKOCYTE ESTERASE ,URINE NEGATIVE (NEGATIVE); NITRITE,URINE NEGATIVE (NEGATIVE); PH,URINE 5.5 (5-9); PROTEIN,URINE TRACE (NEGATIVE)
[2021-12-06] MEDS ORDERED: IOHEXOL 350 MG/ML 100 ML (OMNIPAQUE 350) VIAL IV ONE (14:30)
[2021-12-06] MEDS ORDERED: CATHETER FLUSH 10 ML SYR IV PRN (14:30)
[2021-12-06] MEDS ORDERED: HOLD METFORMIN - RECEIVED CONTRAST 20 ML VIAL IV SCH (14:30)
[2021-12-06] MEDS ORDERED: NS 100 ML (IVPB) BAG IV ONE (14:30)
[2021-12-06 14:34] LABS: BACTERIA,URINE FEW /HPF
--- NOTE | 2021-12-06 15:11 | Diagnostic Imaging Report ---
EXAMINATION: CT angiography of the chest. TECHNIQUE: Contrast enhanced thin section helical images were obtained through the chest with intravenous contrast timed for the optimal opacification of the arterial structures per CTA protocol. Post-processing, reconstructions and interpretation of angiographic images of the vessels was performed. 3D MIP reconstructions were performed and reviewed. All CT scans use one or more of the following dose optimizing techniques: automated exposure control, MA and/or KvP adjustment based on patient size and exam type or iterative reconstruction. HISTORY: Elevated D-dimer. COMPARISON: None available. FINDINGS: There is no pulmonary embolism There is no edema or pneumonia. No pleural effusion. No pneumothorax. No suspicious nodules. There is no axillary or supraclavicular lymphadenopathy. There is no mediastinal lymphadenopathy. There is left-sided pacemaker. Gas adjacent to the pocket may be related to recent placement. Heart size is normal. There are mild coronary artery calcifications. No pericardial effusion. Aorta is normal in caliber. Limited views of the upper abdomen show absent gallbladder. There are no suspicious osseus lesions. IMPRESSION: No pulmonary embolism. Dictated by: Dictated on workstation # [id number]
[2021-12-06 18:15] VITALS: BP 158/90
[2021-12-07] MEDS ORDERED: BACL20TA PO (22:38)
[2021-12-07] MEDS ORDERED: LOSA25TA41 PO (22:38)
[2021-12-07] MEDS ORDERED: CHOL4POW13 PO (22:38)
[2021-12-07] MEDS ORDERED: RIVA20TA PO (22:38)
[2021-12-07] MEDS ORDERED: CYAN100088 PO (22:38)
[2021-12-07] MEDS ORDERED: HYDR-3923 PO (22:38)
[2021-12-07] MEDS ORDERED: FLEC100T PO (22:38)
[2021-12-07] MEDS ORDERED: CRV25T PO (22:38)
== END 2021-12-06 18:15 | disposition home or self-care (01) ==
LOC: EDUNIT# 12:26 → ER FS 12:27
DX: R55 Syncope and collapse (principal); R79.1 Abnormal coagulation profile; Z95.0 Presence of cardiac pacemaker
CPT/HCPCS: 36415; 51702; 70450; 71045; 71275; 80053; 81000; 83735; 83880; 84484; 85025; 85379; 85610; 85730; 87088; 93005; Q9967

== ENCOUNTER 2021-12-07 16:15 | Observation (INO) | payer MEDICARE, OTHER ==
[~2021-12-07] VITALS: Ht 182.8 cm; Wt 131.6 kg
[2021-12-07] MEDS ORDERED: NS IV 1000 ML 1,000 ML IV STA ×2 (16:32→17:57)
[2021-12-07 16:51] LABS: BASOPHILS % (AUTO) 0 % (0-10); EOSINOPHILS # (AUTO) 0.3 10^3/uL (0.0-0.3); EOSINOPHILS % (AUTO) 3 % (0-10); HEMATOCRIT 34 % (40-54); HEMOGLOBIN 10.7 g/dL (13.3-17.7); LYMPHOCYTES # (AUTO) 3.5 10^3/uL (1.0-4.0); LYMPHOCYTES % (AUTO) 33 % (12-44); MEAN CORPUSCULAR HEMOGLOBIN 30 pg (25-34); MEAN CORPUSCULAR HGB CONC 32 g/dL (32-36); MEAN CORPUSCULAR VOLUME 96 fL (80-99); MEAN PLATELET VOLUME 10.3 fL (9.0-12.2); MONOCYTES # (AUTO) 0.7 10^3/uL (0.0-1.0); MONOCYTES % (AUTO) 6 % (0-12); NEUTROPHILS # (AUTO) 6.1 10^3/uL (1.8-7.8); NEUTROPHILS % (AUTO) 57 % (42-75); PLATELET COUNT 209 10^3/uL (130-400); WHITE BLOOD COUNT 10.6 10^3/uL (4.3-11.0)
--- NOTE | 2021-12-07 16:59 | Diagnostic Imaging Report ---
INDICATION: near syncope, hypotension. TECHNIQUE: Single view chest 4:41 PM. CORRELATION STUDY: 12/06/2021 FINDINGS: Left-sided pacemaker remains in place. Cardiac enlargement is unchanged. The severity of pulmonary vascular congestion and edema is improved and near normal. The lungs are clear with no consolidating infiltrate. There is no significant effusion or pneumothorax. IMPRESSION: 1. Stable cardiac enlargement. Vasculature appears improved and near normal at follow-up. Dictated by: Dictated on workstation # [id number]
--- NOTE | 2021-12-07 17:05 | Diagnostic Imaging Report ---
CLINICAL INDICATION: Patient with lethargy. EXAM: Axial CT scan of the brain performed without IV contrast with sagittal and coronal reformatted images. Auto Exposure Controls were utilized during the CT exam to meet ALARA standards for radiation dose reduction. COMPARISON: Head CT without contrast dated 12/06/2021. FINDINGS: There is a grossly 8 mm area of low density involving the right midbrain region which is mainly seen on the axial sequence. Other sequences show significant streak artifact in the region. There is skull streak artifact which obscures portions of the posterior fossa and brainstem. There was no abnormality in this area on the previous head CT. This most likely represents artifact. Otherwise, there is no evidence of acute cerebral infarct, intracranial hemorrhage, or gross mass effect. The brain parenchymal volume appears appropriate for patient's age. There is normal connor-white matter distinction. There is mild chronic small vessel ischemic disease. There is no significant midline shift or herniation. There is no evidence of hydrocephalus. The basal cisterns are unremarkable. The skull, extracranial soft tissue, and orbits are unremarkable. There is mild mucosal thickening or a small amount of fluid involving the sphenoid sinus. Temporal bones show no significant abnormality. IMPRESSION: 1: Stable CT scan of the brain with no evidence of an acute intracranial process. 2: Age related brain parenchymal changes. Dictated by: Dictated on workstation # [id number]
[2021-12-07 17:07] LABS: BUN/CREATININE RATIO 23; CALCIUM 9.3 MG/DL (8.5-10.1); CARBON DIOXIDE 17 MMOL/L (21-32); CHLORIDE 106 MMOL/L (98-107); CREATININE SERUM 2.12 MG/DL (0.60-1.30); GFR ESTIMATED 32; GLUCOSE 127 MG/DL (70-105); POTASSIUM 5.1 MMOL/L (3.6-5.0); SODIUM 140 MMOL/L (135-145)
[2021-12-07 17:08] LABS: ALANINE AMINOTRANSFERASE 8 U/L (0-55); ALBUMIN 3.7 GM/DL (3.2-4.5); ALKALINE PHOSPHATASE 90 U/L (40-136); BILIRUBIN,TOTAL 0.4 MG/DL (0.1-1.0); LIPASE 54 U/L (8-78); MAGNESIUM 2.2 MG/DL (1.6-2.4); TOTAL PROTEIN 6.6 GM/DL (6.4-8.2)
[2021-12-07 17:12] LABS: ABG BASE EXCESS -7.8 MMOL/L (-2.5-2.5); ABG PCO2 35 MMHG (35-45); ABG PO2 79 MMHG (79-93); ABG TCO2 18.7 MMOL/L (21.0-31.0)
[2021-12-07 17:13] LABS: ABG OXYGEN SATURATION 94 % (94-100); ALLENS TEST YES-POS; INSPIRED O2 ROOM AIR; PATIENT TEMP 36.5; VENTILATOR NO
[2021-12-07 17:14] LABS: ABG PH 7.31 (7.37-7.43)
[2021-12-07 17:15] LABS: INR 1.7 (0.8-1.4); PROTHROMBIN TIME PATIENT 20.5 SEC (12.2-14.7)
--- NOTE | 2021-12-07 17:19 | ED General ---
General Chief Complaint: General Problems/Pain Stated Complaint: LETHARGIC Source of Information: Patient, Family (In Laws) History of Present Illness Date Seen by Provider: Dec 07, 2021 Time Seen by Provider: 16:18 Initial Comments 76-year-old male presenting with complaints of lethargy and increased fatigue. He had a pacemaker placed on Tuesday and since coming home he has been having increasing weakness and lightheadedness. He has had decreased oral intake. He was evaluated in the emergency department yesterday for the same complaints. Today he presented because his symptoms continue to worsen. He is living at home by himself but has his daughters in-laws present to try and help. He denies fever, chills, headache, chest pain, vomiting, diarrhea. For his home situation he lives by himself and is in a two-story house. Most of the living facilities are on the second floor. He has not taken a bath because of not being able to get up the stairs. He has been trying to use a hot tub outside to clean himself Timing/Duration: 2-3 Days Severity: Severe Modifying Factors: improves with Movement (Trying to get up and walk makes him more weak and dizzy.) Associated Systoms: No Chest Pain, No Cough, No Diaphoresis, No Fever/Chills, No Headaches; Loss of Appetite, Malaise; No Nausea/Vomiting, No Rash, No Seizure, No Shortness of Air; Syncope (Near syncope), Weakness (Generalized) Allergies and Home Medications Allergies Coded Allergies: No Known Drug Allergies (Unverified , 10/16/13) Patient Home Medication List Home Medication List Reviewed: Yes Amlodipine Besylate (Amlodipine Besylate) 5 Mg Tablet, 10 MG PO DAILY, (Reported) Entered as Reported by: SHILPI OTT on 11/11/20 1228 Aspirin (Aspirin EC) 81 Mg Tablet.dr, 81 MG PO DAILY, (Reported) Entered as Reported by: SHILPI OTT on 11/10/20 1551 Atorvastatin Calcium (Atorvastatin Calcium) 80 Mg Tablet, 80 MG PO HS, (Reported) Entered as Reported by: JOSELYN SANCHEZ on 10/14/19 1617 Baclofen (Baclofen) 20 Mg Tablet, 20 MG PO BID Prescribed by: SUMAYA JEAN-BAPTISTE on 11/17/20 0714 Gabapentin (Neurontin) 300 Mg Capsule, 300 MG PO TID, (Reported) Entered as Reported by: SHILPI OTT on 11/10/20 1551 Hydrocodone/Acetaminophen (Hydrocodone-Acetamin 5-325 mg) 1 Each Tablet, 1 TAB PO Q4H PRN for PAIN-MODERATE (5-7) Prescribed by: SUMAYA JEAN-BAPTISTE on 11/17/20 0715 Metformin HCl (Metformin HCl) 1,000 Mg Tablet, 1,000 MG PO BID, (Reported) Entered as Reported by: SHILPI TOT on 11/11/20 1228 Sildenafil Citrate (Sildenafil Citrate) 100 Mg Tablet, 100 MG PO UD PRN for PRN, (Reported) Entered as Reported by: SHILPI OTT on 11/11/20 1228 Review of Systems Review of Systems Constitutional: see HPI EENTM: no symptoms reported Respiratory: no symptoms reported Cardiovascular: see HPI, chest pain (Mild chest wall pain around where he had the pacemaker placed) Gastrointestinal: no symptoms reported Genitourinary: no symptoms reported Musculoskeletal: no symptoms reported Skin: change in color (Bruising to chest where he had Pacemaker placed) Psychiatric/Neurological: See HPI Hematologic/Lymphatic: No Symptoms Reported Past Ndsuois-Gsbasv-Elaojc Hx Patient Social History Tobacco Use?: No Use of E-Cig and/or Vaping dev: No Substance use?: No Alcohol Use?: No (Used to be a heavy drinker) Immunizations Up To Date First/Initial COVID19 Vaccinat: 2020 Second COVID19 Vaccination Arie: September Third COVID19 Vaccination Date: 2020 Seasonal Allergies Seasonal Allergies: No Past Medical History Surgery/Hospitalization HX: Pacemaker 12/04/21 @ [facility] Surgeries: Yes (Nerve stimulator in back, back surgery x2) Appendectomy, Gallbladder, Orthopedic, Tonsillectomy Respiratory: No Cardiac: Yes (HYPERCHOLESTEROLEMIA) High Cholesterol, Hypertension Neurological: No Reproductive Disorders: No Sexually Transmitted Disease: No Genitourinary: Yes Kidney Stones, Renal Failure Gastrointestinal: Yes (COLON POLYPS, DIVERTICULITIS) Musculoskeletal: Yes (ARTHROPATHY, OSTEOARTHRITIS OF RIGHT KNEE) Degenerate Disk Disease, Arthritis, Chronic Back Pain Endocrine: Yes Diabetes, Non-Insulin dep HEENT: No Cancer: No Psychosocial: No Integumentary: No Blood Disorders: No Physical Exam Vital Signs Vital Signs - First Documented 12/07/21 16:17 Temp 36.5 Pulse 70 Resp 16 B/P (MAP) 97/46 (63) Pulse Ox 95 O2 Delivery Room Air Capillary Refill : Height, Weight, BMI Height: 6'0.00" Weight: 280lbs. 0.0oz. [id number]; 40.00 BMI Method: General Appearance: Chronically ill, Obese, Other (somnolent and falling asleep if not being talked to and shaking shoulder) HEENT: PERRL/EOMI; No Pharynx Normal (slightly dry mucous membranes) Neck: Full Range of Motion, Normal Inspection, Non Tender, Supple Respiratory: No Chest Non Tender (tender to palpation around pacemaker implantation site); Lungs Clear, Normal Breath Sounds, No Accessory Muscle Use, No Respiratory Distress Cardiovascular: Regular Rate, Rhythm, Normal Peripheral Pulses Gastrointestinal: Normal Bowel Sounds, No Pulsatile Mass, Non Tender, Soft Rectal: Deferred Extremity: Normal Capillary Refill, Normal Inspection, Pedal Edema (trace BLE) Neurologic/Psychiatric: Oriented x3, 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 Norm as Tested, Other (somnolent but awakens to voice and touching his shoulder) Skin: Warm/Dry Focused Exam Lactate Level 12/07/21 16:30: Lactic Acid Level 5.39*H 12/07/21 18:30: Lactic Acid Level Laboratory Tests Test 12/07/21 16:30 12/07/21 18:30 Lactic Acid Level 5.39 MMOL/L (0.50-2.00) *H Progress/Results/Core Measures Suspected Sepsis Recent Fever Within 48 Hours: No Infection Criteria Present: None New/Unexplained Altered Menta: No Within 3hrs of presentation: Admin fluids, Admin ABX, Blood cultures prior to ABX's, Lactate level SIRS Temperature: Pulse: Respiratory Rate: Laboratory Tests 12/07/21 16:30: White Blood Count 10.6 Blood Pressure / Mean: 12/07/21 16:30: Lactic Acid Level 5.39*H 12/07/21 18:30: Laboratory Tests 12/07/21 16:30: Creatinine 2.12H, INR Comment 1.7H, Platelet Count 209, Total Bilirubin 0.4 Results/Orders Lab Results Laboratory Tests Test 12/07/21 16:30 12/07/21 17:00 12/07/21 18:30 Range/Units White Blood Count 10.6 4.3-11.0 10^3/uL Red Blood Count 3.53 L 4.30-5.52 10^6/uL Hemoglobin 10.7 L 13.3-17.7 g/dL Hematocrit 34 L 40-54 % Mean Corpuscular Volume 96 80-99 fL Mean Corpuscular Hemoglobin 30 25-34 pg Mean Corpuscular Hemoglobin Concent 32 32-36 g/dL Red Cell Distribution Width 15.9 H 10.0-14.5 % Platelet Count 209 130-400 10^3/uL Mean Platelet Volume 10.3 9.0-12.2 fL Immature Granulocyte % (Auto) 0 % Neutrophils (%) (Auto) 57 42-75 % Lymphocytes (%) (Auto) 33 12-44 % Monocytes (%) (Auto) 6 0-12 % Eosinophils (%) (Auto) 3 0-10 % Basophils (%) (Auto) 0 0-10 % Neutrophils # (Auto) 6.1 1.8-7.8 10^3/uL Lymphocytes # (Auto) 3.5 1.0-4.0 10^3/uL Monocytes # (Auto) 0.7 0.0-1.0 10^3/uL Eosinophils # (Auto) 0.3 0.0-0.3 10^3/uL Basophils # (Auto) 0.0 0.0-0.1 10^3/uL Immature Granulocyte # (Auto) 0.0 0.0-0.1 10^3/uL Prothrombin Time 20.5 H 12.2-14.7 SEC INR Comment 1.7 H 0.8-1.4 Activated Partial Thromboplast Time 52 H 24-35 SEC Sodium Level 140 135-145 MMOL/L Potassium Level 5.1 H 3.6-5.0 MMOL/L Chloride Level 106 98-107 MMOL/L Carbon Dioxide Level 17 L 21-32 MMOL/L Anion Gap 17 H 5-14 MMOL/L Blood Urea Nitrogen 48 H 7-18 MG/DL Creatinine 2.12 H 0.60-1.30 MG/DL Estimat Glomerular Filtration Rate 32 BUN/Creatinine Ratio 23 Glucose Level 127 H 70-105 MG/DL Glucometer 117 H 70-110 MG/DL Lactic Acid Level 5.39 *H 0.50-2.00 MMOL/L Calcium Level 9.3 8.5-10.1 MG/DL Corrected Calcium 9.5 8.5-10.1 MG/DL Magnesium Level 2.2 1.6-2.4 MG/DL Total Bilirubin 0.4 0.1-1.0 MG/DL Aspartate Amino Transf (AST/SGOT) 19 5-34 U/L Alanine Aminotransferase (ALT/SGPT) 8 0-55 U/L Alkaline Phosphatase 90 40-136 U/L Myoglobin 310.4 H 10.0-92.0 NG/ML Troponin I < 0.30 <0.30 NG/ML C-Reactive Protein 1.18 H <0.50 MG/DL Pro-B-Type Natriuretic Peptide 764.8 H <75.0 PG/ML Total Protein 6.6 6.4-8.2 GM/DL Albumin 3.7 3.2-4.5 GM/DL Lipase 54 8-78 U/L Serum Alcohol < 10 <10 MG/DL Blood Gas Puncture Site RT RADIAL Blood Gas Patient Temperature 36.5 Arterial Blood pH 7.31 *L 7.37-7.43 Arterial Blood Partial Pressure CO2 35 35-45 MMHG Arterial Blood Partial Pressure O2 79 79-93 MMHG Arterial Blood HCO3 18 L 23-27 MMOL/L Arterial Blood Total CO2 18.7 L 21.0-31.0 MMOL/L Arterial Blood Oxygen Saturation 94 94-100 % Arterial Blood Base Excess -7.8 L -2.5-2.5 MMOL/L Sixto Test YES-POS Blood Gas Ventilator Setting NO Blood Gas Inspired Oxygen ROOM AIR My Orders Orders - KANCHAN CHILDRESS MD Cbc With Automated Diff (12/07/21 16:30) Magnesium (12/07/21 16:30) Chest 1 View Ap/Pa Only (12/07/21 16:30) Ekg Tracing (12/07/21 16:30) Comprehensive Metabolic Panel (12/07/21 16:30) Myoglobin Serum (12/07/21 16:30) Protime With Inr (12/07/21 16:30) Partial Thromboplastin Time (12/07/21 16:30) O2 (12/07/21 16:30) Monitor-Rhythm Ecg Trace Only (12/07/21 16:30) Ed Iv/Invasive Line Start (12/07/21 16:30) Lipase (12/07/21 16:30) Troponin I Fs (12/07/21 16:30) Probnp Fs (12/07/21 16:30) Ct Head Wo (12/07/21 16:30) Alcohol (12/07/21 16:30) Ua Culture If Indicated (12/07/21 16:30) Crp Fs (12/07/21 16:30) Blood Culture (12/07/21 16:30) Lactic Acid Analyzer (12/07/21 16:30) Arterial Blood Gas (12/07/21 16:32) Ns Iv 1000 Ml (Sodium Chloride 0.9%) (12/07/21 16:32) Ns Iv 1000 Ml (Sodium Chloride 0.9%) (12/07/21 17:57) Ceftriaxone 1 Gm Pre-Mix (Rocephin 1 Gm (12/07/21 18:30) Vital Signs/I&O 12/07/21 12/07/21 16:17 19:01 Temp 36.5 Pulse 70 60 Resp 16 16 B/P (MAP) 97/46 (63) 102/53 Pulse Ox 95 95 O2 Delivery Room Air Room Air Capillary Refill : Progress Note #1: Progress Note Check basic labs and cardiac enzymes. CT of the head to evaluate for possible stroke versus mass versus bleeding. Chest x-ray to evaluate for pneumonia versus pleural effusion versus patchy infiltrates. Obtain urinalysis to check for infection and look at his hydration status. Try giving IV fluids normal saline 1 L bolus for hypotension and possible dehydration. Placed on cardiac assistant facility manager and obtain electrocardiogram. Review chart and tests from yesterday when he was seen in the emergency department Progress Note #2: Progress Note Blood pressure is improving and patient is a little more awake as IV fluids are infusing. For his labs he does not show any acute significant change on his CBC. His chemistry panel does show increasing dehydration with more acute kidney injury. He has elevated BUN and creatinine that has gone up from yesterday. His baseline creatinine appears to be around 1.2 and today he is at 2.1. Yesterday his creatinine was 1.46. His chest x-ray does not show any acute process. His CT head was also stable without acute process. With the elevated BUN and creatinine as well as hypotension will check with the on-call provider for [facility], Dr. Bear. Will see if patient could be admitted for hydration and further monitoring. He might benefit from a social work consult to determine possible discharge planning of long term or rehab options. He also had an elevated lactic acid which may be secondary to his dehydration and the recent pacemaker placement. He has no focal signs of infection on his exam or test otherwise. He did have a few bacteria in his urine from yesterday so there could be the start of a UTI but it did not appear to be enough to cause a lactic acid of 5. We will plan on rechecking this after he has had hydration. We will order a gram of Rocephin to potentially cover UTI or infection He does not have elevated white count or specific source for infection to consider sepsis but he did have the hypotension and dehydration in addition to the elevated lactic acid. This again may just be due to dehydration and his recent procedure but he is being covered with an antibiotic and fluids until further evaluation and testing can be performed. ECG Initial ECG Impression Date: Dec 07, 2021 Initial ECG Impression Time: 16:33 Initial ECG Rate: 60 Initial ECG Comparisson: Changed (Now shows paced rhythm) Comment Electronic atrial pacemaker and ventricular pacemaker with a rate of [address] interval [address] elevation. QT interval 469 ms with a QTc interval 469 ms. He has a change from prior tracings whereas now he has a paced rhythm Diagnostic Imaging Diagonstic Imaging: Xray Plain Films/CT/US/NM/MRI: chest Comments [facility] [place], [place] NAME: [facility]IA LAYTON [facility] REC#: [id number] PT STATUS: REG ER : 1945 PHYSICIAN: KANCHAN CHILDRESS MD ADMIT DATE: 12/07/21/ER FS Draft Date of Exam:12/07/21 CHEST 1 VIEW AP/PA ONLY INDICATION: near syncope, hypotension. TECHNIQUE: Single view chest 4:41 PM. CORRELATION STUDY: 12/06/2021 FINDINGS: Left-sided pacemaker remains in place. Cardiac enlargement is unchanged. The severity of pulmonary vascular congestion and edema is improved and near normal. The lungs are clear with no consolidating infiltrate. There is no significant effusion or pneumothorax. IMPRESSION: 1. Stable cardiac enlargement. Vasculature appears improved and near normal at follow-up. Dictated on workstation # [id number] Dict: 12/07/211656 Trans: 12/07/211658 DO Interpreted by: FANNIE DUTTON DO Electronically signed by: Reviewed: Reviewed by Me Diagonstic Imaging: CT Plain Films/CT/US/NM/MRI: head Comments [facility] [place] [place] NAME: LEIA LAYTON [facility] REC#: [id number] PT STATUS: REG ER : 1945 PHYSICIAN: KANCHAN CHILDRESS MD ADMIT DATE: 12/07/21/ER FS Signed Date of Exam:12/07/21 CT HEAD WO CLINICAL INDICATION: Patient with lethargy. EXAM: Axial CT scan of the brain performed without IV contrast with sagittal and coronal reformatted images. Auto Exposure Controls were utilized during the CT exam to meet ALARA standards for radiation dose reduction. COMPARISON: Head CT without contrast dated 12/06/2021. FINDINGS: There is a grossly 8 mm area of low density involving the right midbrain region which is mainly seen on the axial sequence. Other sequences show significant streak artifact in the region. There is skull streak artifact which obscures portions of the posterior fossa and brainstem. There was no abnormality in this area on the previous head CT. This most likely represents artifact. Otherwise, there is no evidence of acute cerebral infarct, intracranial hemorrhage, or gross mass effect. The brain parenchymal volume appears appropriate for patient's age. There is normal connor-white matter distinction. There is mild chronic small vessel ischemic disease. There is no significant midline shift or herniation. There is no evidence of hydrocephalus. The basal cisterns are unremarkable. The skull, extracranial soft tissue, and orbits are unremarkable. There is mild mucosal thickening or a small amount of fluid involving the sphenoid sinus. Temporal bones show no significant abnormality. IMPRESSION: 1: Stable CT scan of the brain with no evidence of an acute intracranial process. 2: Age related brain parenchymal changes. Dictated by: Dictated on workstation # [id number] Dict: 12/07/211657 Trans: 12/07/211705 Interpreted by: SAMM SONG MD Electronically signed by: SAMM SONG MD 12/07/211705 Reviewed: Reviewed by Me Departure Communication (Admissions) Time/Spoke to Admitting Phy: 17:[address] Bear for [facility] service and will place in observation status for hydration. Patient may need social work consult and consider discharge to a long term facility to assist with his recuperation from pacemaker placement Impression Primary Impression: Dehydration Additional Impressions: Acute kidney injury (nontraumatic) Near syncope Hypotension Qualified Codes: I95.89 - Other hypotension; E86.1 - Hypovolemia Disposition: 30 STILL A PATIENT Condition: Stable Admissions Decision to Admit Reason: Admit from ER (General) Decision to Admit/Date: Dec 07, 2021 Time/Decision to Admit Time: 17:31 Departure-Patient Inst. Referrals: COREY JI MD (PCP/Family) Primary Care Physician KANCHAN CHILDRESS MD Dec 07, 2021 17:19
[2021-12-07] MEDS ORDERED: cefTRIAXone 1 GM PRE-MIX 50 ML IV STA (18:30)
[2021-12-07 21:59] VITALS: BP 119/58
[2021-12-07] MEDS: NS IV 1000 ML 1,000 ML IV SCH (22:08)
[2021-12-07] MEDS ORDERED: CHOL4POW13 PO (22:38)
[2021-12-07] MEDS ORDERED: BACL20TA PO (22:38)
[2021-12-07] MEDS ORDERED: FLEC100T PO (22:38)
[2021-12-07] MEDS ORDERED: CYAN100088 PO (22:38)
[2021-12-07] MEDS ORDERED: HYDR-3923 PO (22:38)
[2021-12-07] MEDS ORDERED: RIVA20TA PO (22:38)
[2021-12-07] MEDS ORDERED: CRV25T PO (22:38)
[2021-12-07] MEDS ORDERED: LOSA25TA41 PO (22:38)
[2021-12-07 23:57] VITALS: BP 129/68
[2021-12-08] VITALS: BP 123/66
[2021-12-08 03:55] VITALS: BP 128/87
[2021-12-08 05:35] LABS: BASOPHILS # (AUTO) 0.1 10^3/uL (0.0-0.1); BASOPHILS % (AUTO) 1 % (0-10); EOSINOPHILS # (AUTO) 0.3 10^3/uL (0.0-0.3); EOSINOPHILS % (AUTO) 4 % (0-10); HEMATOCRIT 33 % (40-54); HEMOGLOBIN 10.2 g/dL (13.3-17.7); LYMPHOCYTES % (AUTO) 35 % (12-44); MEAN CORPUSCULAR HEMOGLOBIN 31 pg (25-34); MEAN CORPUSCULAR HGB CONC 31 g/dL (32-36); MEAN CORPUSCULAR VOLUME 99 fL (80-99); MONOCYTES # (AUTO) 0.6 10^3/uL (0.0-1.0); MONOCYTES % (AUTO) 7 % (0-12); NEUTROPHILS # (AUTO) 4.6 10^3/uL (1.8-7.8); NEUTROPHILS % (AUTO) 54 % (42-75); PLATELET COUNT 161 10^3/uL (130-400); WHITE BLOOD COUNT 8.6 10^3/uL (4.3-11.0)
[2021-12-08 05:55] LABS: POTASSIUM 4.2 MMOL/L (3.6-5.0)
[2021-12-08 05:57] LABS: CALCIUM 8.6 MG/DL (8.5-10.1)
[2021-12-08 06:01] LABS: CREATININE SERUM 1.73 MG/DL (0.60-1.30)
[2021-12-08 08:00] VITALS: BP 129/57
[2021-12-08] MEDS: NS IV 1000 ML 1,000 ML IV SCH ×2 (08:16→09:46)
[2021-12-08 12:00] VITALS: BP 151/74
[2021-12-08] MEDS ORDERED: AMLO-251 PO (13:45)
[2021-12-08] MEDS ORDERED: HYDR25TA4 PO (14:09)
[2021-12-08] MEDS ORDERED: ACHD5005 PO (14:09)
[2021-12-08] MEDS ORDERED: LOSA100T57 PO (14:33)
--- NOTE | 2021-12-08 15:53 | History & Physical ---
HPI History of Present Illness: 76 yo M that presented with dizziness and increase in fatigue. He had pace maker placed in the last few weeks at . He has had some major life stressors recently as his was recently diagnosed with colon cancers with mets. He states that he has not been eating and drinking normally. Denies any chest pain or shortness of breath. He states that he is feeling better this AM. He has not been up and out of bed yet today. Source: patient Exam Limitations: no limitations Date seen by provider: Dec 08, 2021 Time Seen by Provider: 09:45 Attending Physician Deleted PCP Admitting Physician: Dewayne Bear MD Attending Physician: Dewayne Bear MD Consult Date of Admission Dec 07, 2021 at 20:19 Home Medications Home Medications Reviewed patient Home Medication Reconciliation performed by pharmacy medication reconciliations industrial ecology technician and/or nursing. Patients Allergies have been reviewed. Allergies Coded Allergies: No Known Drug Allergies (Unverified , 10/16/13) YPB-[id number]-Ypwvgp Hx Patient Social History Living Status: Lives in home independently with Smoking Status: Current Everyday Smoker 2nd Hand Smoke Exposure: No Recent Hopitalizations: No Alcohol Use?: No Tobacco type used: Cigars Have you traveled recently?: No Immunizations Up To Date Influenza Vaccine Up-to-Date: Yes; Up-to-Date First/Initial COVID19 Vaccinat: 2020 Second COVID19 Vaccination Arie: September Third COVID19 Vaccination Date: 2020 Past Medical History HTN HLP Spinal disease DM s/p pacer placement Review of Systems ([facility]) Constitutional: malaise, weakness EENTM: no symptoms reported; No mouth pain, No nose congestion Respiratory: no symptoms reported; No dyspnea on exertion, No short of breath Cardiovascular: no symptoms reported; No chest pain; edema; No palpitations Gastrointestinal: no symptoms reported; No abdominal pain, No constipation, No diarrhea, No nausea, No vomiting Genitourinary: no symptoms reported; No dysuria, No frequency, No hematuria Musculoskeletal: no symptoms reported, back pain, joint pain Psychiatric/Neurological: Anxiety, Depressed Reviewed Test Results Reviewed Test Results Lab Laboratory Tests Test 12/07/21 16:30 12/07/21 17:00 12/07/21 18:30 12/07/21 21:15 Range/Units White Blood Count 10.6 4.3-11.0 10^3/uL Red Blood Count 3.53 L 4.30-5.52 10^6/uL Hemoglobin 10.7 L 13.3-17.7 g/dL Hematocrit 34 L 40-54 % Mean Corpuscular Volume 96 80-99 fL Mean Corpuscular Hemoglobin 30 25-34 pg Mean Corpuscular Hemoglobin Concent 32 32-36 g/dL Red Cell Distribution Width 15.9 H 10.0-14.5 % Platelet Count 209 130-400 10^3/uL Mean Platelet Volume 10.3 9.0-12.2 fL Immature Granulocyte % (Auto) 0 % Neutrophils (%) (Auto) 57 42-75 % Lymphocytes (%) (Auto) 33 12-44 % Monocytes (%) (Auto) 6 0-12 % Eosinophils (%) (Auto) 3 0-10 % Basophils (%) (Auto) 0 0-10 % Neutrophils # (Auto) 6.1 1.8-7.8 10^3/uL Lymphocytes # (Auto) 3.5 1.0-4.0 10^3/uL Monocytes # (Auto) 0.7 0.0-1.0 10^3/uL Eosinophils # (Auto) 0.3 0.0-0.3 10^3/uL Basophils # (Auto) 0.0 0.0-0.1 10^3/uL Immature Granulocyte # (Auto) 0.0 0.0-0.1 10^3/uL Prothrombin Time 20.5 H 12.2-14.7 SEC INR Comment 1.7 H 0.8-1.4 Activated Partial Thromboplast Time 52 H 24-35 SEC Sodium Level 140 135-145 MMOL/L Potassium Level 5.1 H 3.6-5.0 MMOL/L Chloride Level 106 98-107 MMOL/L Carbon Dioxide Level 17 L 21-32 MMOL/L Anion Gap 17 H 5-14 MMOL/L Blood Urea Nitrogen 48 H 7-18 MG/DL Creatinine 2.12 H 0.60-1.30 MG/DL Estimat Glomerular Filtration Rate 32 BUN/Creatinine Ratio 23 Glucose Level 127 H 70-105 MG/DL Glucometer 117 H 70-110 MG/DL Lactic Acid Level 5.39 *H 2.51 *H 1.46 0.50-2.00 MMOL/L Calcium Level 9.3 8.5-10.1 MG/DL Corrected Calcium 9.5 8.5-10.1 MG/DL Magnesium Level 2.2 1.6-2.4 MG/DL Total Bilirubin 0.4 0.1-1.0 MG/DL Aspartate Amino Transf (AST/SGOT) 19 5-34 U/L Alanine Aminotransferase (ALT/SGPT) 8 0-55 U/L Alkaline Phosphatase 90 40-136 U/L Myoglobin 310.4 H 10.0-92.0 NG/ML Troponin I < 0.30 <0.30 NG/ML C-Reactive Protein 1.18 H <0.50 MG/DL Pro-B-Type Natriuretic Peptide 764.8 H <75.0 PG/ML Total Protein 6.6 6.4-8.2 GM/DL Albumin 3.7 3.2-4.5 GM/DL Lipase 54 8-78 U/L Serum Alcohol < 10 <10 MG/DL Blood Gas Puncture Site RT RADIAL Blood Gas Patient Temperature 36.5 Arterial Blood pH 7.31 *L 7.37-7.43 Arterial Blood Partial Pressure CO2 35 35-45 MMHG Arterial Blood Partial Pressure O2 79 79-93 MMHG Arterial Blood HCO3 18 L 23-27 MMOL/L Arterial Blood Total CO2 18.7 L 21.0-31.0 MMOL/L Arterial Blood Oxygen Saturation 94 94-100 % Arterial Blood Base Excess -7.8 L -2.5-2.5 MMOL/L Sixto Test YES-POS Blood Gas Ventilator Setting NO Blood Gas Inspired Oxygen ROOM AIR Test 12/08/21 05:20 Range/Units White Blood Count 8.6 4.3-11.0 10^3/uL Red Blood Count 3.34 L 4.30-5.52 10^6/uL Hemoglobin 10.2 L 13.3-17.7 g/dL Hematocrit 33 L 40-54 % Mean Corpuscular Volume 99 80-99 fL Mean Corpuscular Hemoglobin 31 25-34 pg Mean Corpuscular Hemoglobin Concent 31 L 32-36 g/dL Red Cell Distribution Width 15.6 H 10.0-14.5 % Platelet Count 161 130-400 10^3/uL Mean Platelet Volume 10.0 9.0-12.2 fL Immature Granulocyte % (Auto) 0 % Neutrophils (%) (Auto) 54 42-75 % Lymphocytes (%) (Auto) 35 12-44 % Monocytes (%) (Auto) 7 0-12 % Eosinophils (%) (Auto) 4 0-10 % Basophils (%) (Auto) 1 0-10 % Neutrophils # (Auto) 4.6 1.8-7.8 10^3/uL Lymphocytes # (Auto) 3.0 1.0-4.0 10^3/uL Monocytes # (Auto) 0.6 0.0-1.0 10^3/uL Eosinophils # (Auto) 0.3 0.0-0.3 10^3/uL Basophils # (Auto) 0.1 0.0-0.1 10^3/uL Immature Granulocyte # (Auto) 0.0 0.0-0.1 10^3/uL Sodium Level 139 135-145 MMOL/L Potassium Level 4.2 3.6-5.0 MMOL/L Chloride Level 111 H 98-107 MMOL/L Carbon Dioxide Level 18 L 21-32 MMOL/L Anion Gap 10 5-14 MMOL/L Blood Urea Nitrogen 43 H 7-18 MG/DL Creatinine 1.73 H 0.60-1.30 MG/DL Estimat Glomerular Filtration Rate 41 BUN/Creatinine Ratio 25 Glucose Level 94 70-105 MG/DL Calcium Level 8.6 8.5-10.1 MG/DL Physical Exam-([facility]) Physical Exam Vital Signs VS - Last 72 Hours, by Label 12/07/21 12/07/21 12/07/21 12/07/21 16:17 19:01 20:26 21:59 Temp 36.5 36.1 Pulse 70 60 63 60 Resp 16 16 11 B/P (MAP) 97/46 (63) 102/53 119/58 (78) Pulse Ox 95 95 94 O2 Delivery Room Air Room Air Room Air 12/07/21 12/07/21 12/08/21 12/08/21 22:00 23:57 00:00 01:00 Temp 36.0 Pulse 61 60 61 Resp 12 16 B/P (MAP) 129/68 (88) 123/66 (85) Pulse Ox 98 99 O2 Delivery Room Air Room Air Room Air 12/08/21 12/08/21 12/08/21 12/08/21 01:34 03:55 05:34 07:00 Temp 36.3 Pulse 60 60 Resp 20 B/P (MAP) 128/87 (101) Pulse Ox 99 O2 Delivery Room Air Room Air Room Air 12/08/21 12/08/21 12/08/21 12/08/21 08:00 08:00 09:34 12:00 Temp 37.2 Pulse 82 65 Resp 10 11 B/P (MAP) 129/57 (81) 151/74 (99) Pulse Ox 97 97 O2 Delivery Room Air Room Air Room Air 12/08/21 12/08/21 13:00 13:34 Pulse 60 O2 Delivery Room Air Capillary Refill : Less Than 3 Seconds General Appearance: WD/WN, no apparent distress, obese HEENT: PERRL/EOMI Neck: non-tender, full range of motion Respiratory: chest non-tender, lungs clear, normal breath sounds, no respiratory distress, no accessory muscle use Cardiovascular: normal peripheral pulses, regular rate, rhythm, no edema, no murmur Gastrointestinal: normal bowel sounds, non tender, soft Back: no CVA tenderness, no vertebral tenderness Extremities: normal range of motion, non-tender, no calf tenderness, normal capillary refill Neurologic/Psychiatric: back end engineer II-XII nml as tested, no motor/sensory deficits, alert, oriented x 3 Skin: other (pacer pouch looks great w/o signs of infection) Assessment/Plan Assessment/Plan Admission Status: Observation (1) Near syncope Status: Acute Assessment & Plan: - Patient with dehydration, decreased PO intake with elevation in Cr, IVFs, he is feeling better this AM. Will get PT ordered today (2) Acute kidney injury (nontraumatic) Status: Acute Assessment & Plan: - Continue to monitor (3) Dehydration Status: Acute Assessment & Plan: - Likely cause of elevated LA, resolved quickly with IVFs, no signs of infection at this time (4) Presence of normal functioning cardiac pacemaker Status: Acute (5) Non-insulin dependent type 2 diabetes mellitus Status: Chronic Assessment & Plan: - Continue home meds (6) Hyperlipemia Status: Chronic Assessment & Plan: - Continue Statin Qualifiers: Qualified Codes: E78.2 - Mixed hyperlipidemia DEWAYNE BEAR MD Dec 08, 2021 15:53
[2021-12-08 16:07] VITALS: BP 152/88
[2021-12-08] MEDS: CHOLESTYRAMINE 4 GM (QUESTRAN LITE, PREVALITE) PKT PO SCH (18:39)
[2021-12-08 20:09] VITALS: BP 166/80
[2021-12-08] MEDS: cefTRIAXone 1 GM/50 ML (PRE-MIX) IV SCH (20:15)
[2021-12-08] MEDS ORDERED: NON-FORMULARY MEDICATION 1 EA EA (Baclofen 20 MG) PO SCH (21:00)
[2021-12-08] MEDS: GABAPENTIN 300 MG (NEURONTIN) CAP PO SCH (21:12)
[2021-12-08] MEDS: hydrALAZINE (APRESOLINE) 25 MG TAB PO SCH (21:13)
[2021-12-08] MEDS: FLECAINIDE 100 MG (TAMBOCOR) TAB PO SCH (21:13)
[2021-12-08] MEDS: BACLOFEN 10 MG (LIORESAL) TAB PO SCH (21:13)
[2021-12-09] VITALS: BP 160/86
[2021-12-09] MEDS: NS IV 1000 ML 1,000 ML IV SCH ×3 (02:40→12:43)
[2021-12-09 04:00] VITALS: BP 166/77
[2021-12-09 05:25] LABS: BASOPHILS % (AUTO) 1 % (0-10); EOSINOPHILS # (AUTO) 0.3 10^3/uL (0.0-0.3); EOSINOPHILS % (AUTO) 4 % (0-10); HEMATOCRIT 32 % (40-54); HEMOGLOBIN 10.3 g/dL (13.3-17.7); LYMPHOCYTES # (AUTO) 2.7 10^3/uL (1.0-4.0); LYMPHOCYTES % (AUTO) 35 % (12-44); MEAN CORPUSCULAR HEMOGLOBIN 31 pg (25-34); MEAN CORPUSCULAR HGB CONC 32 g/dL (32-36); MEAN CORPUSCULAR VOLUME 96 fL (80-99); MEAN PLATELET VOLUME 10.7 fL (9.0-12.2); MONOCYTES # (AUTO) 0.5 10^3/uL (0.0-1.0); MONOCYTES % (AUTO) 7 % (0-12); NEUTROPHILS # (AUTO) 4.2 10^3/uL (1.8-7.8); NEUTROPHILS % (AUTO) 54 % (42-75); PLATELET COUNT 158 10^3/uL (130-400); WHITE BLOOD COUNT 7.8 10^3/uL (4.3-11.0)
[2021-12-09 05:36] LABS: POTASSIUM 4.5 MMOL/L (3.6-5.0)
[2021-12-09 05:37] LABS: CALCIUM 8.6 MG/DL (8.5-10.1)
[2021-12-09 05:38] LABS: TOTAL PROTEIN 5.5 GM/DL (6.4-8.2)
[2021-12-09 05:40] LABS: BILIRUBIN,TOTAL 0.3 MG/DL (0.1-1.0)
[2021-12-09 05:42] LABS: CREATININE SERUM 1.39 MG/DL (0.60-1.30)
[2021-12-09 07:57] VITALS: BP 172/79
[2021-12-09] MEDS: LOSARTAN 100 MG (COZAAR) TABLET PO SCH (08:51)
[2021-12-09] MEDS: FLECAINIDE 100 MG (TAMBOCOR) TAB PO SCH ×2 (08:51→21:04)
[2021-12-09] MEDS: amLODIPine 10 MG (NORVASC) TAB PO SCH (08:51)
[2021-12-09] MEDS: RIVAROXABAN 20 MG TABLET (XARELTO) PO SCH (08:51)
[2021-12-09] MEDS: hydrALAZINE (APRESOLINE) 25 MG TAB PO SCH ×3 (08:51→21:04)
[2021-12-09] MEDS: CHOLESTYRAMINE 4 GM (QUESTRAN LITE, PREVALITE) PKT PO SCH ×3 (08:52→17:39)
[2021-12-09] MEDS: GABAPENTIN 300 MG (NEURONTIN) CAP PO SCH ×3 (08:52→21:04)
[2021-12-09] MEDS: BACLOFEN 10 MG (LIORESAL) TAB PO SCH ×3 (09:00→21:04)
--- NOTE | 2021-12-09 13:58 | Physical Therapy Evaluation ---
PT Evaluation-General Medical Diagnosis Admission Date Dec 07, 2021 at 20:19 Medical Diagnosis: near syncope Onset Date: Dec 07, 2021 Therapy Diagnosis Therapy Diagnosis: impaired mobility Height/Weight Height (Feet): 6 Height (Inches): 0.00 Weight (Pounds): 280 Weight (Ounces): 0.0 Precautions Precautions/Isolations: Fall Prevention, Standard Precautions Referral Physician: Chema Reason for Referral: Evaluation/Treatment Medical History Pertinent Medical History: DM, HTN Additional Medical History Past Medical History HTN HLP Spinal disease DM s/p pacer placement Reviewed History: Yes Social History family is trying to get patient onto a jail Prior Prior Level of Function SCALE: Activities may be completed with or without assistive devices. 9-Hzqvbelzzh-vgimhxc completes the activity by him/herself with no assistance from a helper. 5-Set-up or Clean-up Assistance-helper sets up or cleans up; patient completes activity. Alligator assists only prior to or following the activity. 4-Supervision or Touching Assistance-helper provides verbal cues and/or touching/steadying and/or contact guard assistance as patient completes activity. Assistance may be provided throughout the activity or intermittently. 3-Partial/Moderate Assistance-helper does LESS THAN HALF the effort. Alligator lifts, holds or supports trunk or limbs, but provides less than half the effort. 2-Substantial/Maximal Assistance-helper does MORE THAN HALF the effort. Alligator lifts or holds trunk or limbs and provides more than half the effort. 8-Zeuvznnlg-xobscf does ALL the effort. Patient does none of the effort to complete the activity. Or, the assistance of 2 or more helpers is required for the patient to complete the activity. If activity was not attempted, code reason: 7-Patient Refused. 9-Not Applicable-not attempted and the patient did not perform the activity before the current illness, exacerbation or injury. 10-Not Attempted due to Environmental Limitations-(lack of equipment, weather restraints, etc.). 88-Not Attempted due to Medical Conditions or Safety Concerns. Bed Mobility: 6 Transfers (B,C,W/C): 6 Gait: 6 Indoor Mobility (Ambulation): Independent patient was not using an assistive device until just recently he started using a rolling walker PT Evaluation-Current Subjective Patient in bed pre tx, agrees to PT, has no complaints of pain. Pt/Family Goals "to see where I need to be discharged to" Objective Patient Orientation: Person, Place, Situation ROM/Strength ROM Lower Extremities WNL Strength Lower Extremities grossly 5/5 BLE Sensory Hearing: Functional Sensation Right Lower Extremit: Intact Sensation Left Lower Extremity: Impaired Transfers Roll Left to Right (QC): 6 Sit to Lying (QC): 6 Lying to Sitting/Side of Bed(Q: 6 Sit to Stand (QC): 4 Chair/Moa-br-Ouvbm Xfer(QC): 4 Toilet Transfer (QC): 4 Gait Does the Patient Walk?: Yes Mode of Locomotion: Walk Anticipated Mode of Locomotion: Walk Walk 10 feet (QC): 4 Walk 50 ft with 2 Turns(QC): 4 Distance: 50' Gait Assistive Device: FWW Comments/Gait Description Patient wanted to use the restroom first, ambulates into the restroom with SBA and sits on toilet, when done, stands with SBA, ambulates about his room for about 50' with SBA. He does have some slight unsteadiness and needs somebody with him when walking but did not require any actual assist from therapist due t o LOB Balance Sitting Static: Normal Sitting Dynamic: Normal Standing Static: Fair Standing Dynamic: Fair Treatment BLE supine exercises x20 (AP, HS) Assessment/Needs Patient in bed post tx with nurse call, phone, tray, all needs met. Patient has impaired mobility and needs SBA for ambulation and transfers. Rehab Potential: Fair PT Human Services Case Manager Goals Human Services Case Manager Goals PT Human Services Case Manager Goals Time Frame: Dec 16, 2021 Roll Left & Right (QC): 6 Sit to Lying (QC): 6 Lying-Sitting on Side/Bed(QC): 6 Sit to Stand (QC): 6 Chair/Cvb-kx-Ymonu Xfer(QC): 6 Walk 10 feet (QC): 6 Walk 50ft with 2 Turns (QC): 6 Walk 150 ft (QC): 6 PT Plan Problem List Problem List: Activity Tolerance, Functional Strength, Safety, Balance, Gait, Transfer, ROM Treatment/Plan Treatment Plan: Continue Plan of Care Treatment Plan: Education, Functional Activity Sharon, Functional Strength, Gait, Safety, Therapeutic Exercise, Transfers Treatment Duration: Dec 16, 2021 Frequency: 6 times per week Estimated Hrs Per Day: .25 hour per day Patient and/or Family Agrees t: Yes Safety Risks/Education Patient Education: Gait Training, Transfer Techniques, Correct Positioning, Safety Issues Teaching Recipient: Patient Teaching Methods: Demonstration, Discussion Response to Teaching: Reinforcement Needed Discharge Recommendations Plan Patient will perform bed mobility and transfer training, balance and endurance training, functional strengthening, stair training, gait training, and education, to improve functional mobility and independence at home. Therapy Discharge Recommendati: Scheduled Assistance, Assisted Living, Home & Family, Post Acute PT Time/GCodes Time In: 1321 Time Out: 1333 Total Billed Treatment Time: 12 Total Billed Treatment 1 visit ELSY OCONNOR PT Dec 09, 2021 13:58
[2021-12-09 15:00] VITALS: BP 153/90
[2021-12-09 15:30] VITALS: BP 134/77
[2021-12-09] MEDS: cefTRIAXone 1 GM/50 ML (PRE-MIX) IV SCH (20:01)
--- NOTE | 2021-12-09 21:14 | Progress Note ---
Subjective Subjective/Events-last exam Patient states that he feels ok this AM. States that he did not get any sleep last night. Tolerating PO diet. Has not been up out of bed since arriving. Review of Systems General: Fatigue Pulmonary: Dyspnea Genitourinary: Frequency Neurological: Weakness, Incoordination, Other (depressed mood) Focused Exam Lactate Level 12/07/21 16:30: Lactic Acid Level 5.39*H 12/07/21 18:30: Lactic Acid Level 2.51*H 12/07/21 21:15: Lactic Acid Level 1.46 Objective Exam Last Set of Vital Signs Vital Signs Date Time Temp Pulse Resp B/P (MAP) Pulse Ox O2 Delivery O2 Flow Rate FiO2 12/09/21 19:00 63 12/09/21 16:00 15 98 Room Air 12/09/21 15:30 36.3 134/77 (96) Capillary Refill : Less Than 3 Seconds I&O Intake and Output 12/09/21 00:00 Intake Total 1240 ml Output Total 2810 ml Balance -1570 ml Intake Oral 1240 ml Output Urine Total 2810 ml # Voids 1 General: Alert, Oriented X3, No Acute Distress Lungs: Clear to Auscultation, Normal Air Movement Heart: Regular Rate, No Murmurs Abdomen: Normal Bowel Sounds, Soft, No Tenderness Extremities: Other (1+ pitting edema bilaterally) Neuro: Normal Speech Results/Procedures Lab Laboratory Tests 12/09/21 05:05: White Blood Count 7.8, Red Blood Count 3.35L, Hemoglobin 10.3L, Hematocrit 32L, Mean Corpuscular Volume 96, Mean Corpuscular Hemoglobin 31, Mean Corpuscular Hemoglobin Concent 32, Red Cell Distribution Width 15.4H, Platelet Count 158, Mean Platelet Volume 10.7, Immature Granulocyte % (Auto) 0, Neutrophils (%) (Auto) 54, Lymphocytes (%) (Auto) 35, Monocytes (%) (Auto) 7, Eosinophils (%) (Auto) 4, Basophils (%) (Auto) 1, Neutrophils # (Auto) 4.2, Lymphocytes # (Auto) 2.7, Monocytes # (Auto) 0.5, Eosinophils # (Auto) 0.3, Basophils # (Auto) 0.0, Immature Granulocyte # (Auto) 0.0, Sodium Level 139, Potassium Level 4.5, Chloride Level 113H, Carbon Dioxide Level 17L, Anion Gap 9, Blood Urea Nitrogen 31H, Creatinine 1.39H, Estimat Glomerular Filtration Rate 53, BUN/Creatinine Ratio 22, Glucose Level 114H, Calcium Level 8.6, Corrected Calcium 9.4, Total Bilirubin 0.3, Aspartate Amino Transf (AST/SGOT) 17, Alanine Aminotransferase (ALT/SGPT) 13, Alkaline Phosphatase 69, Total Protein 5.5L, Albumin 3.0L Microbiology 12/07/21 Blood Culture - Preliminary, Resulted No growth Assessment/Plan Assessment/Plan (1) Near syncope Status: Acute Assessment & Plan: - Patient with dehydration, decreased PO intake with elevation in Cr, IVFs, he is feeling better this AM. Will get PT ordered today 12/09: No additional episodes since arriving, PT/OT ordered to increase mobility (2) Acute kidney injury (nontraumatic) Status: Resolved Assessment & Plan: - Continue to monitor 12/09: Patient at his baseline (3) Dehydration Status: Acute Assessment & Plan: - Likely cause of elevated LA, resolved quickly with IVFs, no signs of infection at this time (4) Presence of normal functioning cardiac pacemaker Status: Acute (5) Non-insulin dependent type 2 diabetes mellitus Status: Chronic Assessment & Plan: - Continue home meds (6) Hyperlipemia Status: Chronic Assessment & Plan: - Continue Statin Qualifiers: Qualified Codes: E78.2 - Mixed hyperlipidemia DEWAYNE KRUSE MD Dec 09, 2021 21:14
[2021-12-10] VITALS (7 sets, daily range): BP systolic 135–177; BP diastolic 65–91
[2021-12-10 05:36] LABS: BASOPHILS # (AUTO) 0.1 10^3/uL (0.0-0.1); BASOPHILS % (AUTO) 1 % (0-10); EOSINOPHILS # (AUTO) 0.3 10^3/uL (0.0-0.3); EOSINOPHILS % (AUTO) 3 % (0-10); HEMATOCRIT 33 % (40-54); HEMOGLOBIN 10.2 g/dL (13.3-17.7); LYMPHOCYTES # (AUTO) 2.6 10^3/uL (1.0-4.0); LYMPHOCYTES % (AUTO) 30 % (12-44); MEAN CORPUSCULAR HEMOGLOBIN 30 pg (25-34); MEAN CORPUSCULAR HGB CONC 31 g/dL (32-36); MEAN CORPUSCULAR VOLUME 96 fL (80-99); MEAN PLATELET VOLUME 10.5 fL (9.0-12.2); MONOCYTES # (AUTO) 0.6 10^3/uL (0.0-1.0); MONOCYTES % (AUTO) 7 % (0-12); NEUTROPHILS # (AUTO) 5.1 10^3/uL (1.8-7.8); NEUTROPHILS % (AUTO) 58 % (42-75); PLATELET COUNT 166 10^3/uL (130-400); WHITE BLOOD COUNT 8.7 10^3/uL (4.3-11.0)
[2021-12-10 05:49] LABS: ALBUMIN 3.2 GM/DL (3.2-4.5); POTASSIUM 4.4 MMOL/L (3.6-5.0)
[2021-12-10 05:52] LABS: TOTAL PROTEIN 5.8 GM/DL (6.4-8.2)
[2021-12-10 05:54] LABS: BILIRUBIN,TOTAL 0.3 MG/DL (0.1-1.0)
[2021-12-10 05:55] LABS: CREATININE SERUM 1.27 MG/DL (0.60-1.30)
[2021-12-10] MEDS: CHOLESTYRAMINE 4 GM (QUESTRAN LITE, PREVALITE) PKT PO SCH ×3 (08:16→18:27)
[2021-12-10] MEDS: amLODIPine 10 MG (NORVASC) TAB PO SCH (08:17)
[2021-12-10] MEDS: hydrALAZINE (APRESOLINE) 25 MG TAB PO SCH ×3 (08:17→20:48)
[2021-12-10] MEDS: GABAPENTIN 300 MG (NEURONTIN) CAP PO SCH ×3 (08:17→20:48)
[2021-12-10] MEDS: RIVAROXABAN 20 MG TABLET (XARELTO) PO SCH (08:17)
[2021-12-10] MEDS: LOSARTAN 100 MG (COZAAR) TABLET PO SCH (08:17)
[2021-12-10] MEDS: FLECAINIDE 100 MG (TAMBOCOR) TAB PO SCH ×2 (08:17→20:48)
[2021-12-10] MEDS: BACLOFEN 10 MG (LIORESAL) TAB PO SCH ×3 (08:17→20:48)
--- NOTE | 2021-12-10 09:16 | Physical Therapy Daily Note ---
PT Daily Note-Current Subjective Patient in bed pre tx, agrees to PT, has no complaints of pain. Needs to use the restroom. Appearance Patient in bedside chair post tx with nurse call, phone, tray, all needs met. Mental Status Patient Orientation: Person, Place, Situation Transfers SCALE: Activities may be completed with or without assistive devices. 9-Ieujpiozbf-enyfyir completes the activity by him/herself with no assistance from a helper. 5-Set-up or Clean-up Assistance-helper sets up or cleans up; patient completes activity. Dillon assists only prior to or following the activity. 4-Supervision or Touching Assistance-helper provides verbal cues and/or touching/steadying and/or contact guard assistance as patient completes activity. Assistance may be provided throughout the activity or intermittently. 3-Partial/Moderate Assistance-helper does LESS THAN HALF the effort. Dillon lifts, holds or supports trunk or limbs, but provides less than half the effort. 2-Substantial/Maximal Assistance-helper does MORE THAN HALF the effort. Dillon lifts or holds trunk or limbs and provides more than half the effort. 4-Qtchvqhna-szyvls does ALL the effort. Patient does none of the effort to complete the activity. Or, the assistance of 2 or more helpers is required for the patient to complete the activity. If activity was not attempted, code reason: 7-Patient Refused. 9-Not Applicable-not attempted and the patient did not perform the activity before the current illness, exacerbation or injury. 10-Not Attempted due to Environmental Limitations-(lack of equipment, weather restraints, etc.). 88-Not Attempted due to Medical Conditions or Safety Concerns. Roll Left & Right (QC): 6 Lying to Sitting/Side of Bed(Q: 6 Sit to Stand (QC): 4 Chair/Eyg-qi-Xtpbd Xfer(QC): 4 patient performed toilet transfer without assist (SBA) Gait Training Distance: 200' Walk 10 feet (QC): 4 Walk 50 ft with 2 Turns(QC): 4 Walk 150 ft (QC): 4 Gait Persons Needed: 1 Gait Assistive Device: FWW SBA, slow but steady ambulation, needs CGA with turning, can be impulsive and slightly unsteady when turning Treatments toileting, ambulation Assessment Current Status: Fair Progress improving general mobility PT Skilled Nursing Goals Vp Director Of Finance Goals PT Vp Director Of Finance Goals Time Frame: Dec 16, 2021 Roll Left & Right (QC): 6 Sit to Lying (QC): 6 Lying-Sitting on Side/Bed(QC): 6 Sit to Stand (QC): 6 Chair/Qzd-ku-Oevjb Xfer(QC): 6 Walk 10 feet (QC): 6 Walk 50ft with 2 Turns (QC): 6 Walk 150 ft (QC): 6 PT Plan Problem List Problem List: Activity Tolerance, Functional Strength, Safety, Balance, Gait, Transfer, Bed Mobility, ROM Treatment/Plan Treatment Plan: Continue Plan of Care Treatment Plan: Education, Functional Activity Sharon, Functional Strength, Gait, Safety, Therapeutic Exercise, Transfers Treatment Duration: Dec 16, 2021 Frequency: 6 times per week Estimated Hrs Per Day: .25 hour per day Patient and/or Family Agrees t: Yes Safety Risks/Education Patient Education: Gait Training, Transfer Techniques, Correct Positioning, Safety Issues Teaching Recipient: Patient Teaching Methods: Demonstration, Discussion Response to Teaching: Reinforcement Needed Time/GCodes Time In: 0849 Time Out: 0859 Total Billed Treatment Time: 10 Total Billed Treatment 1 visit GT 10' ELSY PERALES PT Dec 10, 2021 09:16
--- NOTE | 2021-12-10 14:32 | Progress Note ---
Subjective Subjective/Events-last exam Patient feeling much better this AM. States that he did not get much sleep but he did get up and walk with PT and felt good. No knee buckling or fear of falling. Tolerating PO diet. BM this AM. Review of Systems General: Fatigue Pulmonary: No Dyspnea Cardiovascular: No: Chest Pain, Palpitations, Edema Gastrointestinal: No: Nausea, Vomiting, Abdominal Pain Neurological: Weakness, Incoordination Focused Exam Lactate Level 12/07/21 16:30: Lactic Acid Level 5.39*H 12/07/21 18:30: Lactic Acid Level 2.51*H 12/07/21 21:15: Lactic Acid Level 1.46 Objective Exam Last Set of Vital Signs Vital Signs Date Time Temp Pulse Resp B/P (MAP) Pulse Ox O2 Delivery O2 Flow Rate FiO2 12/10/21 13:00 65 12/10/21 12:00 18 135/65 (88) 97 Room Air 12/10/21 12:00 36.9 Capillary Refill : Less Than 3 Seconds I&O Intake and Output0 12/10/21 00:00 Intake Total 1220 ml Output Total 4100 ml Balance -2880 ml Intake Oral 1220 ml Output Urine Total 4100 ml General: Alert, Oriented X3, Cooperative, No Acute Distress Lungs: Clear to Auscultation, Normal Air Movement Heart: Regular Rate, No Murmurs Extremities: No Edema, No Tenderness/Swelling Neuro: Normal Speech, Sensation Intact, Cranial Nerves 3-12 NL Results/Procedures Lab Laboratory Tests 12/10/21 05:28: White Blood Count 8.7, Red Blood Count 3.38L, Hemoglobin 10.2L, Hematocrit 33L, Mean Corpuscular Volume 96, Mean Corpuscular Hemoglobin 30, Mean Corpuscular Hemoglobin Concent 31L, Red Cell Distribution Width 15.4H, Platelet Count 166, Mean Platelet Volume 10.5, Immature Granulocyte % (Auto) 0, Neutrophils (%) (Auto) 58, Lymphocytes (%) (Auto) 30, Monocytes (%) (Auto) 7, Eosinophils (%) (Auto) 3, Basophils (%) (Auto) 1, Neutrophils # (Auto) 5.1, Lymphocytes # (Auto) 2.6, Monocytes # (Auto) 0.6, Eosinophils # (Auto) 0.3, Basophils # (Auto) 0.1, Immature Granulocyte # (Auto) 0.0, Sodium Level 138, Potassium Level 4.4, Chloride Level 112H, Carbon Dioxide Level 17L, Anion Gap 9, Blood Urea Nitrogen 29H, Creatinine 1.27, Estimat Glomerular Filtration Rate 59, BUN/Creatinine Ratio 23, Glucose Level 143H, Calcium Level 9.0, Corrected Calcium 9.6, Total Bilirubin 0.3, Aspartate Amino Transf (AST/SGOT) 18, Alanine Aminotransferase (ALT/SGPT) 14, Alkaline Phosphatase 70, Total Protein 5.8L, Albumin 3.2 Microbiology 12/07/21 Blood Culture - Preliminary, Resulted No growth Assessment/Plan Assessment/Plan (1) Near syncope Status: Acute Assessment & Plan: - Patient with dehydration, decreased PO intake with elevation in Cr, IVFs, he is feeling better this AM. Will get PT ordered today 12/09: No additional episodes since arriving, PT/OT ordered to increase mobility 12/10: Doing well with PT, Plan for d/c tomorrow with SNF (2) Acute kidney injury (nontraumatic) Status: Resolved Assessment & Plan: - Continue to monitor 12/09: Patient at his baseline (3) Dehydration Status: Acute Assessment & Plan: - Likely cause of elevated LA, resolved quickly with IVFs, no signs of infection at this time 12/10: @ baseline, no labs in AM (4) Presence of normal functioning cardiac pacemaker Status: Acute (5) Non-insulin dependent type 2 diabetes mellitus Status: Chronic Assessment & Plan: - Continue home meds (6) Hyperlipemia Status: Chronic Assessment & Plan: - Continue Statin Qualifiers: Qualified Codes: E78.2 - Mixed hyperlipidemia DEWAYNE KRUSE MD Dec 10, 2021 14:32
[2021-12-10] MEDS: cefTRIAXone 1 GM/50 ML (PRE-MIX) IV SCH (20:48)
[2021-12-11 00:01] VITALS: BP 164/85
[2021-12-11 04:07] VITALS: BP 142/77
[2021-12-11 08:22] VITALS: BP 165/76
[2021-12-11] MEDS: CHOLESTYRAMINE 4 GM (QUESTRAN LITE, PREVALITE) PKT PO SCH (08:33)
[2021-12-11] MEDS: LOSARTAN 100 MG (COZAAR) TABLET PO SCH (08:34)
[2021-12-11] MEDS: amLODIPine 10 MG (NORVASC) TAB PO SCH (08:34)
[2021-12-11] MEDS: BACLOFEN 10 MG (LIORESAL) TAB PO SCH (08:34)
[2021-12-11] MEDS: hydrALAZINE (APRESOLINE) 25 MG TAB PO SCH (08:34)
[2021-12-11] MEDS: RIVAROXABAN 20 MG TABLET (XARELTO) PO SCH (08:34)
[2021-12-11] MEDS: GABAPENTIN 300 MG (NEURONTIN) CAP PO SCH (08:34)
[2021-12-11] MEDS: FLECAINIDE 100 MG (TAMBOCOR) TAB PO SCH (08:34)
--- NOTE | 2021-12-11 09:18 | Discharge Summary ---
Discharge Summary Hospital Course Hospital Course Date of Admission: Dec 07, 2021 at 20:19 Admission Diagnosis : Family Physician/Provider: Sunil Sherman MD Date of Discharge: 12/11/21 Discharge Diagnosis: Near Syncope Acute Kidney Failure HTN Dehydration HLD Pacemaker Hospital Course: 76 yo M with recent pacemaker placement that had a near fall at home. Came to ER and was found to have dehydration with AKF which resolved with IVFs. Patient having weakness and unsteady gait and patient and family wish for SNF after di scharge. Labs and Pending Lab Test: Laboratory Tests 12/10/21 05:28: White Blood Count 8.7, Red Blood Count 3.38L, Hemoglobin 10.2L, Hematocrit 33L, Mean Corpuscular Volume 96, Mean Corpuscular Hemoglobin 30, Mean Corpuscular Hemoglobin Concent 31L, Red Cell Distribution Width 15.4H, Platelet Count 166, Mean Platelet Volume 10.5, Immature Granulocyte % (Auto) 0, Neutrophils (%) (Auto) 58, Lymphocytes (%) (Auto) 30, Monocytes (%) (Auto) 7, Eosinophils (%) (Auto) 3, Basophils (%) (Auto) 1, Neutrophils # (Auto) 5.1, Lymphocytes # (Auto) 2.6, Monocytes # (Auto) 0.6, Eosinophils # (Auto) 0.3, Basophils # (Auto) 0.1, Immature Granulocyte # (Auto) 0.0, Sodium Level 138, Potassium Level 4.4, Chloride Level 112H, Carbon Dioxide Level 17L, Anion Gap 9, Blood Urea Nitrogen 29H, Creatinine 1.27, Estimat Glomerular Filtration Rate 59, BUN/Creatinine Ratio 23, Glucose Level 143H, Calcium Level 9.0, Corrected Calcium 9.6, Total B ilirubin 0.3, Aspartate Amino Transf (AST/SGOT) 18, Alanine Aminotransferase (ALT/SGPT) 14, Alkaline Phosphatase 70, Total Protein 5.8L, Albumin 3.2 Microbiology 12/07/21 Blood Culture - Preliminary, Resulted No growth Home Meds Active Reported Losartan Potassium 100 Mg Tablet 100 Mg PO DAILY Hydrocodone-Acetamin 5-325 mg (Hydrocodone/Acetaminophen) 5 Mg-325 Mg Tablet 1 Tab PO Q6H PRN FILLED 08-19-2021 #30 Amlodipine Besylate 10 Mg Tablet 10 Mg PO DAILY Baclofen 20 Mg Tablet 20 Mg PO TID Flecainide Acetate 100 Mg Tablet 100 Mg PO BID B-12 (Cyanocobalamin (Vitamin B-12)) 1,000 Mcg Tablet 1,000 Mcg PO DAILY Cholestyramine Light Packet (Cholestyramine/Aspartame) 4 Gram Powd.pack 4 Gm PO TIDWM Coreg (Carvedilol) 25 Mg Tab 25 Mg PO BID Xarelto (Rivaroxaban) 20 Mg Tablet 20 Mg PO DAILY Hydralazine HCl 25 Mg Tablet 25 Mg PO TID Metformin HCl 1,000 Mg Tablet 1,000 Mg PO BID Sildenafil Citrate 100 Mg Tablet 100 Mg PO UD PRN Neurontin (Gabapentin) 300 Mg Capsule 300 Mg PO TID Atorvastatin Calcium 80 Mg Tablet 80 Mg PO DAILY Skilled NF Admit to: Certification (SNF) I certify that SNF services are required to be given on an inpatient basis because of the above named patient's need for [facility] care on a continuing basis for the conditions(s) for which he/she was receiving inpatient hospital services prior to his/her transfer to the SNF. Snf Facility Order: Nursing Services, Travel Registered Nurse Icu-Evaluate & Treat, Physical Therapy-Evaluate & Treat Oxygen Delivery Method: Room Air Discharge Diet: Cardiac Diet Resuscitation Status: Do Not Resuscitate Dewayne Bear Dec 10, 2021 21:38 Discharge Physical Exam General: Alert, Oriented X3, No Acute Distress Lungs: Clear to Auscultation, Normal Air Movement Heart: Regular Rate, No Murmurs Abdomen: Normal Bowel Sounds, Soft, No Tenderness, No Masses Extremities: No Edema, No Tenderness/Swelling Skin: No Rashes Neuro: Normal Speech, Cranial Nerves 3-12 NL Psych/Mental Status: Mental Status NL, Mood NL DEWAYNE BEAR MD Dec 10, 2021 21:41
[2021-12-11] MEDS ORDERED: LOSA100T57 PO (09:24)
[2021-12-11] MEDS ORDERED: AMLO-251 PO (09:24)
[2021-12-11] MEDS ORDERED: CRV25T PO (09:24)
[2021-12-11] MEDS ORDERED: GABA300C PO (09:24)
[2021-12-11] MEDS ORDERED: FLEC100T PO (09:24)
[2021-12-11] MEDS ORDERED: CHOL4POW13 PO (09:24)
[2021-12-11] MEDS ORDERED: ATOR80TA76 PO (09:24)
[2021-12-11] MEDS ORDERED: CYAN100088 PO (09:24)
[2021-12-11] MEDS ORDERED: RIVA20TA PO (09:24)
[2021-12-11] MEDS ORDERED: HYDR-3923 PO (09:24)
[2021-12-11] MEDS ORDERED: METF-399 PO (09:24)
[2021-12-11] MEDS ORDERED: BACL20TA PO (09:24)
== END 2021-12-11 11:21 ==
LOC: EDUNIT# 16:15 → ER FS 16:16 → CSD 20:19 → 4TH 12-10 15:21
PROVIDERS: ADMIT Family Medicine; ATTEND Family Medicine
DX: R55 Syncope and collapse (principal); N17.9 Acute kidney failure, unspecified; I10 Essential (primary) hypertension; E86.0 Dehydration; E11.9 Type 2 diabetes mellitus without complications; E78.2 Mixed hyperlipidemia; I95.89 Other hypotension; E86.1 Hypovolemia; Z79.82 Long term (current) use of aspirin; Z79.84 Long term (current) use of oral hypoglycemic drugs; Z95.0 Presence of cardiac pacemaker
CPT/HCPCS: 36415; 70450; 71045; 80048; 80053 ×3; 82805; 82947 ×2; 83605 ×2; 83690; 83735; 83874; 83880; 84484; 85025 ×4; 85610; 85730; 86141; 87040; 93005; 93041; 96366; 96374; 96376 ×2; 97116; 97162; 99285; G0378 ×2; G0480; 80320; 96365